=== PATIENT | female | born 1970 | race Caucasian/White ===

== ENCOUNTER 2020-09-15 15:30 | Observation (INO) ==
[2020-09-15] MEDS ORDERED: SODIUM CHLORIDE 0.9% 1000ML 1,000 ML IV STA (15:51)
[2020-09-15] MEDS ORDERED: ONDANSETRON INJ 2 MG/ML 2 ML VIAL IV STA (15:51)
[2020-09-15] MEDS: NITROGLYCERIN SL 0.4 MG/TAB TAB SL PRN ×2 (16:11→16:23)
--- NOTE | 2020-09-15 16:48 | Emergency Department Note ---
History of Present Illness General Chief Complaint: Chest Pain Stated Complaint: CHEST PAIN Time Seen by Provider: 09/15/20 15:40 History of Present Illness Provider Complaint: chest pain Onset (ago): hour(s) 2 Duration: constant Onset: during rest Pain Location: substernal Pain Radiation: none Severity: moderate Maximum Pain Intensity: 6 Current Pain Intensity: 6 Quality: + other (pressure) Relieved By: + nothing Exacerbated By: + nothing Context: + recent surgery (just finished ERCP and biliary stent placement by Dr. Grewal and then began having chest pain in the PACU); no recent illness and no recent travel Associated symptoms: + nausea; no vomiting, no diaphoresis, no dyspnea, no syncope, no palpitations and no fever Home Medications Medication Instructions Recorded Confirmed Type alprazolam [Xanax] 1 mg PO BID PRN 09/13/20 09/15/20 History benzonatate [Tessalon Perles] 100 mg PO BID PRN 09/13/20 09/15/20 History vdusnanluo-fgelhmz-ayjqnsdo 1 cap PO Q4H PRN 09/13/20 09/15/20 History docusate sodium 100 mg PO BID 09/13/20 09/15/20 History escitalopram oxalate [Lexapro] 20 mg PO QAM 09/13/20 09/15/20 History estradiol [Estrace] 3 mg PO QAM 09/13/20 09/15/20 History gabapentin 600 mg PO TID 09/13/20 09/15/20 History levothyroxine 100 mcg PO QAM 09/13/20 09/15/20 History loratadine 10 mg PO HS 09/13/20 09/15/20 History losartan [Cozaar] 50 mg PO QAM 09/13/20 09/15/20 History omeprazole 40 mg PO QAM 09/13/20 09/15/20 History ondansetron HCl [Zofran] 4 mg PO Q8H PRN 09/13/20 09/15/20 History oxycodone-acetaminophen [Percocet] 1 tab PO Q6H PRN 09/13/20 09/15/20 History promethazine 25 mg PO TID PRN 09/13/20 09/15/20 History rizatriptan 10 mg PO TID PRN 09/13/20 09/15/20 History senna 8.6 mg PO QAM 09/13/20 09/15/20 History sucralfate [Carafate] 10 ml PO QID 09/13/20 09/15/20 History topiramate [Topamax] 50 mg PO HS 09/13/20 09/15/20 History trazodone 50 mg PO HS 09/13/20 09/15/20 History ciprofloxacin HCl [Cipro] 500 mg PO BID #10 tab 09/15/20 09/15/20 Rx Allergies Allergy/AdvReac Type Severity Reaction Status Date / Time pineapple Allergy Severe Anaphylaxis Verified 09/15/20 16:14 Past Med/Surg History Medical History (Updated 09/15/20 @ 19:42 by Justina Cole PA-C) Anxiety and depression Arthritis Cholangiocarcinoma Constipation Elevated LFTs GERD (gastroesophageal reflux disease) Hypertension Hypothyroidism Liver enzyme elevation Migraine Peripheral neuropathy Spinal stenosis Stomach ulcer Surgical History (Updated 09/15/20 @ 19:37 by Justina Cole PA-C) Family history of reaction to anesthesia Son > combative Father > slow to wake H/O total hysterectomy History of bilateral tubal ligation History of cholecystectomy History of esophagogastroduodenoscopy (EGD) History of tonsillectomy History of tooth extraction Family History Father Family history of diabetes mellitus Other Family history of factor V deficiency Social History Smoking Status: Never smoker Second Hand Exposure: Yes; Hx Alcohol Use: No Preferred Language: Guyanese Zinc Plate Cutter Required: No Beliefs That Will Affect Care: None Current Living Situation: Family Feels Safe at Home: Yes Assistive Devices: Denture - Upper, Denture - Lower and Glasses Review of Systems A total of 10 systems reviewed and were otherwise negative Physical Exam Vital Signs Vital Signs - 24 hr 09/15/20 15:45 09/15/20 15:49 09/15/20 15:50 Temperature Temperature Source Pulse Rate 62 57 L 60 Pulse Rate [Right Finger] Pulse Rate from SpO2 Sensor 61 57 L 60 Pulse Rhythm Pulse Strength Respiratory Rate 23 14 17 Respiratory Effort / Characteristics Respiratory Depth Respiratory Pattern Blood Pressure 166/108 H Blood Pressure [Right Arm] Blood Pressure Mean 127 Blood Pressure Mean [Right Arm] Pulse Oximetry 97 97 97 Oxygen Delivery Method Sepsis Recent Fever Within 48 Hours Sepsis New/Unexplained Change in Mental Status Sepsis Action Taken by Nursing 09/15/20 15:51 09/15/20 16:00 09/15/20 16:10 Temperature 36.7 C Temperature Source Oral Pulse Rate 73 65 62 Pulse Rate [Right Finger] Pulse Rate from SpO2 Sensor 65 63 Pulse Rhythm Regular Pulse Strength Normal Respiratory Rate 18 18 18 Respiratory Effort / Characteristics Non-Labored Respiratory Depth Normal Respiratory Pattern Regular Blood Pressure 174/103 H Blood Pressure [Right Arm] Blood Pressure Mean 126 Blood Pressure Mean [Right Arm] Pulse Oximetry 95 96 97 Oxygen Delivery Method Room Air Sepsis Recent Fever Within 48 Hours No Sepsis New/Unexplained Change in Mental Status No Sepsis Action Taken by Nursing No Action Required 09/15/20 16:12 09/15/20 16:20 09/15/20 16:22 Temperature Temperature Source Pulse Rate 73 75 77 Pulse Rate [Right Finger] Pulse Rate from SpO2 Sensor 75 78 Pulse Rhythm Pulse Strength Respiratory Rate 17 30 H 11 L Respiratory Effort / Characteristics Respiratory Depth Respiratory Pattern Blood Pressure 174/103 H 139/91 Blood Pressure [Right Arm] Blood Pressure Mean 126 107 Blood Pressure Mean [Right Arm] Pulse Oximetry 92 92 Oxygen Delivery Method Sepsis Recent Fever Within 48 Hours Sepsis New/Unexplained Change in Mental Status Sepsis Action Taken by Nursing 09/15/20 16:23 09/15/20 16:30 09/15/20 16:31 Temperature Temperature Source Pulse Rate 79 77 75 Pulse Rate [Right Finger] Pulse Rate from SpO2 Sensor 78 79 74 Pulse Rhythm Pulse Strength Respiratory Rate 19 14 Respiratory Effort / Characteristics Respiratory Depth Respiratory Pattern Blood Pressure 130/83 Blood Pressure [Right Arm] Blood Pressure Mean 98 Blood Pressure Mean [Right Arm] Pulse Oximetry 93 95 Oxygen Delivery Method Sepsis Recent Fever Within 48 Hours Sepsis New/Unexplained Change in Mental Status Sepsis Action Taken by Nursing 09/15/20 16:40 09/15/20 16:50 09/15/20 17:00 Temperature Temperature Source Pulse Rate 66 61 60 Pulse Rate [Right Finger] Pulse Rate from SpO2 Sensor 66 60 60 Pulse Rhythm Pulse Strength Respiratory Rate 15 11 L 13 Respiratory Effort / Characteristics Respiratory Depth Respiratory Pattern Blood Pressure 162/86 H Blood Pressure [Right Arm] Blood Pressure Mean 111 Blood Pressure Mean [Right Arm] Pulse Oximetry 93 92 90 Oxygen Delivery Method Sepsis Recent Fever Within 48 Hours Sepsis New/Unexplained Change in Mental Status Sepsis Action Taken by Nursing 09/15/20 17:01 09/15/20 17:10 09/15/20 17:20 Temperature Temperature Source Pulse Rate 58 L 56 L 56 L Pulse Rate [Right Finger] Pulse Rate from SpO2 Sensor 58 L 56 L 57 L Pulse Rhythm Pulse Strength Respiratory Rate 9 L 16 20 Respiratory Effort / Characteristics Respiratory Depth Respiratory Pattern Blood Pressure Blood Pressure [Right Arm] Blood Pressure Mean Blood Pressure Mean [Right Arm] Pulse Oximetry 93 95 95 Oxygen Delivery Method Sepsis Recent Fever Within 48 Hours Sepsis New/Unexplained Change in Mental Status Sepsis Action Taken by Nursing 09/15/20 18:02 09/15/20 18:03 09/15/20 18:05 Temperature Temperature Source Pulse Rate Pulse Rate [Right Finger] 56 L Pulse Rate from SpO2 Sensor 51 L 50 L Pulse Rhythm Pulse Strength Respiratory Rate 20 Respiratory Effort / Characteristics Non-Labored Respiratory Depth Normal Respiratory Pattern Blood Pressure 177/93 H Blood Pressure [Right Arm] 177/93 H Blood Pressure Mean 121 Blood Pressure Mean [Right Arm] 121 Pulse Oximetry 96 95 96 Oxygen Delivery Method Room Air Sepsis Recent Fever Within 48 Hours Sepsis New/Unexplained Change in Mental Status Sepsis Action Taken by Nursing 09/15/20 18:10 09/15/20 18:20 09/15/20 18:30 Temperature Temperature Source Pulse Rate Pulse Rate [Right Finger] Pulse Rate from SpO2 Sensor 54 L 57 L 55 L Pulse Rhythm Pulse Strength Respiratory Rate Respiratory Effort / Characteristics Respiratory Depth Respiratory Pattern Blood Pressure 179/100 H Blood Pressure [Right Arm] Blood Pressure Mean 126 Blood Pressure Mean [Right Arm] Pulse Oximetry 93 97 98 Oxygen Delivery Method Sepsis Recent Fever Within 48 Hours Sepsis New/Unexplained Change in Mental Status Sepsis Action Taken by Nursing 09/15/20 18:31 09/15/20 18:40 09/15/20 18:50 Temperature Temperature Source Pulse Rate Pulse Rate [Right Finger] Pulse Rate from SpO2 Sensor 52 L 57 L 48 L Pulse Rhythm Pulse Strength Respiratory Rate Respiratory Effort / Characteristics Respiratory Depth Respiratory Pattern Blood Pressure Blood Pressure [Right Arm] Blood Pressure Mean Blood Pressure Mean [Right Arm] Pulse Oximetry 98 96 98 Oxygen Delivery Method Sepsis Recent Fever Within 48 Hours Sepsis New/Unexplained Change in Mental Status Sepsis Action Taken by Nursing 09/15/20 19:00 09/15/20 19:01 09/15/20 19:10 Temperature Temperature Source Pulse Rate Pulse Rate [Right Finger] Pulse Rate from SpO2 Sensor 60 56 L 57 L Pulse Rhythm Pulse Strength Respiratory Rate Respiratory Effort / Characteristics Respiratory Depth Respiratory Pattern Blood Pressure 178/99 H Blood Pressure [Right Arm] Blood Pressure Mean 125 Blood Pressure Mean [Right Arm] Pulse Oximetry 94 94 98 Oxygen Delivery Method Sepsis Recent Fever Within 48 Hours Sepsis New/Unexplained Change in Mental Status Sepsis Action Taken by Nursing 09/15/20 19:20 09/15/20 19:30 Temperature Temperature Source Pulse Rate 55 L 61 Pulse Rate [Right Finger] Pulse Rate from SpO2 Sensor Pulse Rhythm Pulse Strength Respiratory Rate 13 15 Respiratory Effort / Characteristics Respiratory Depth Respiratory Pattern Blood Pressure 149/104 H Blood Pressure [Right Arm] Blood Pressure Mean 119 Blood Pressure Mean [Right Arm] Pulse Oximetry Oxygen Delivery Method Sepsis Recent Fever Within 48 Hours Sepsis New/Unexplained Change in Mental Status Sepsis Action Taken by Nursing Physical Exam GENERAL: She is oriented to person, place, and time. She appears well-developed and well-nourished. She does not appear distressed. HENT: Exam performed. -Head: Normocephalic and atraumatic. -Right Ear: External ear normal. No mastoid tenderness. -Left Ear: External ear normal. No mastoid tenderness. -Mouth/Throat: The oropharynx is clear and moist. No trismus in the jaw. No dental abscesses or uvula swelling. No oropharyngeal exudate or tonsillar abscesses. EYES: Conjunctivae and EOM are normal. Pupils are equal, round, and reactive to light. Right eye exhibits no discharge. Left eye exhibits no discharge. scleral icterus. NECK: Normal range of motion. Neck supple. No JVD present. No spinous process tenderness present. No carotid bruit present. No rigidity. No tracheal deviation and normal range of motion present. No Brudzinski's sign and no Kernig's sign noted. CV: Normal rate, regular rhythm, normal heart sounds and intact distal pulses. There is no peripheral edema. Palpable radial pulses bue. PULM/CHEST: Effort normal and breath sounds normal. No respiratory distress. No stridor. She has no wheezes. She has no rales. -Chest Wall: She exhibits no tenderness. ABD: The abdomen is soft. Bowel sounds are normal. She has no distension. No mass is present. There is no tenderness. There is no rebound, no guarding, no Guerrero's sign and no tenderness at McBurney's point. Rovsig negative MUSC/SKEL: Normal range of motion. There is no peripheral edema, tenderness or deformity. LYMPH: No cervical adenopathy. NEURO: She is alert and oriented to person, place, and time. She has normal strength. No cranial nerve deficit or sensory deficit. Coordination and gait normal. GCS eye subscore is 4. GCS verbal subscore is 5. GCS motor subscore is 6. Cerebellar tests wnl. SKIN: Severely jaundiced. PSYCH: She has a normal mood and affect. Behavior is normal. Judgment and thought content normal. Course Course 1540: The patient was evaluated in room B8. A complete history and physical exam was performed Cardiac monitoring: An order was placed for continuous cardiac monitoring. The monitor shows a rate of 60 with sinus rhythm 1550: Patient reports her chest pain has improved to a 2 out of 10 status post 1 sublingual nitroglycerin. She is reporting a headache now, will order IV fluids and Tylenol. 1840: Vital signs stable. Troponin negative. Chest x-ray negative. Labs do show an elevated bilirubin level and alkaline phosphatase level as is expected given the patient's biliary problems. Patient is reporting that her chest pain was starting to come back mildly, Nitropaste was applied to the patient which improved her pain. [facility] states to admit to Dr. Rhodes's team. Administered Medications Nitroglycerin (Nitroglycerin Sl 0.4 Mg/Tab Tab) 0.4 mg SL UD PRN PRN Reason: Chest Pain Stop: 10/15/20 15:50 Last Admin: 09/15/20 16:23 Dose: 0.4 mg Documented by: [id number] Admin: 09/15/20 16:11 Dose: 0.4 mg Documented by: [id number] Discontinued Medications Acetaminophen (Acetaminophen 325 Mg Tab) 650 mg PO NOW STA Stop: 09/15/20 19:05 Last Admin: 09/15/20 19:11 Dose: 650 mg Documented by: [id number] Sodium Chloride (Nss 1000ml) 1,000 mls @ 999 mls/hr IV .Q1H1M STA Stop: 09/15/20 16:51 Last Infusion: 09/15/20 18:04 Dose: 0 mls/hr Documented by: [id number] Admin: 09/15/20 16:12 Dose: 999 mls/hr Documented by: [id number] Nitroglycerin (Nitroglycerin 2% Ointment 30gm Tube) 1 inch EXT NOW STA Stop: 09/15/20 18:12 Last Admin: 09/15/20 18:22 Dose: 1 inch Documented by: [id number] Ondansetron HCl (Ondansetron Inj 2 Mg/Ml 2 Ml Vial) 4 mg IV NOW STA Stop: 09/15/20 15:52 Last Admin: 09/15/20 16:11 Dose: 4 mg Documented by: [id number] Medical Decision Making Laboratory Data Result diagrams: 09/15/20 17:16 09/15/20 15:59 Labs: Lab Results 09/15/20 09/15/20 09/15/20 Range/Units 15:59 17:16 17:16 WBC 5.49 (4.8-10.8) K/uL RBC 3.94 L (4.2-5.4) M/uL Hgb 12.7 (12.0-16.0) g/dL Hct 37.3 (37-47) % MCV 94.7 (80-100) fL MCH 32.2 (25-34) pg MCHC 34.0 (32-36) g/dL RDW Std Deviation 52.1 H (36.4-46.3) fL RDW Coeff of Kaden 15.0 H (11.5-14.5) % Plt Count 176 (130-400) K/uL MPV 10.9 H (7.4-10.4) fL Immature Gran % (Auto) 0.4 % Neut % (Auto) 88.5 % Lymph % (Auto) 8.9 % [place] % (Auto) 2.0 % Eos % (Auto) 0.0 % Baso % (Auto) 0.2 % Neut # (Auto) 4.86 (1.4-6.5) K/uL Lymph # (Auto) 0.49 L (1.2-3.4) K/uL [place] # (Auto) 0.11 (0.11-0.59) K/uL Eos # (Auto) 0.00 (0-0.5) K/uL Baso # (Auto) 0.01 (0-0.2) K/uL Immature Gran # (Auto) 0.02 (0.00-0.02) K/uL PT 14.4 H (9.0-12.0) Seconds INR 1.5 H (0.9-1.1) APTT 30.3 (21.0-31.0) Seconds PTT Ratio 1.2 Sodium 138 (136-145) mmol/L Potassium 3.8 (3.5-5.1) mmol/L Chloride 106 (98-107) mmol/L Carbon Dioxide 24 (21-32) mmol/L Anion Gap 8.0 (3-11) BUN 5 L (7-18) mg/dl Creatinine 0.68 (0.6-1.2) mg/dl Est Cr Clr Drug Dosing 116.8 ml/min Est GFR ( Amer) 117.4 ml/min Est GFR (Non-Af Amer) 101.3 ml/min BUN/Creatinine Ratio 7.2 L (10-20) Glucose 159 H (70-99) mg/dl Calcium 9.5 (8.5-10.1) mg/dl Total Bilirubin 11.6 H (0.2-1) mg/dl Direct Bilirubin (0-0.2) mg/dl AST 80 H (15-37) U/L ALT 69 (12-78) U/L Alkaline Phosphatase 452 H (45-117) U/L Troponin I < 0.015 (0-0.045) ng/ml Total Protein 6.6 (6.4-8.2) gm/dl Albumin 2.7 L (3.4-5.0) gm/dl Globulin 3.9 (2.5-4.0) gm/dl Albumin/Globulin Ratio 0.7 L (0.9-2) Lipase 307 (73-393) U/L Specimen Hemolysis Imaging Data Chest x-ray: Radiologist's impression: AP CHEST WITH ABDOMINAL SERIES CLINICAL HISTORY: Atypical chest pain. Status post ERCP today. FINDINGS: An AP upright chest radiograph is obtained. No prior studies are available for comparison at the time of dictation. The cardiomediastinal silhouette is unremarkable. The lungs and pleural spaces are clear. No pneumothorax is seen. The bony thorax is grossly intact. Supine and erect abdominal radiographs are obtained. No prior there is a nonobstructed abdominal bowel gas pattern. Cholecystectomy clips are noted in the right upper quadrant. Common bile duct and pancreatic duct stents are in place. Residual enteric contrast is noted in the left colon. There is moderate colonic fecal retention. No evidence of intraperitoneal free air is seen. The hepatic silhouette appears enlarged. There are no abnormal abdominal calcifications. The lumbosacral spine and bony pelvis appear intact. IMPRESSION: 1. No active disease in the chest. 2. Nonobstructed abdominal bowel gas pattern. 3. Common bile duct and pancreatic duct stents are in place. 4. Moderate colonic fecal retention. ACT 112: Negative or not required by law. Electronically signed by: Yazan Bowen M.D. 09/15/2020 5:56 PM Dictated: 09/15/201753Transcribed: 09/15/201753 ECG Data Indication: chest pain Rate (beats per minute): 57 Rhythm: normal sinus Findings: + 1st degree AV block; no ST depression, no ST elevation and no prolonged QT MDM Narrative 1540: The patient was evaluated in room B8. A complete history and physical exam was performed Cardiac monitoring: An order was placed for continuous cardiac monitoring. The monitor shows a rate of 60 with sinus rhythm 1550: Patient reports her chest pain has improved to a 2 out of 10 status post 1 sublingual nitroglycerin. She is reporting a headache now, will order IV fluids and Tylenol. 1840: Vital signs stable. Troponin negative. Chest x-ray negative. Labs do show an elevated bilirubin level and alkaline phosphatase level as is expected given the patient's biliary problems. Patient is reporting that her chest pain was starting to come back mildly, Nitropaste was applied to the patient which improved her pain. Patient will be admitted to the [facility] hospitalist team Justina NAVARRO states to admit to Dr. Rhodes's team. Impression & Plan Chest pain Discharge Plan Visit Data Chief Complaint: Chest Pain Stated Complaint: CHEST PAIN ED Provider: Jose Roberto Moses Discharge Problem: Chest pain Patient Disposition: Being Evaluated by Hospitalist Forms Stand Alone Forms: [facility] DocbookMD Prescriptions Prescriptions: No Action losartan [Cozaar] 50 mg Tablet 50 mg PO QAM RF: 0 gabapentin 600 mg Tablet 600 mg PO TID RF: 0 alprazolam [Xanax] 1 mg Tablet 1 mg PO BID PRN (Reason: Anxiety) RF: 0 ondansetron HCl [Zofran] 4 mg Tablet 4 mg PO Q8H PRN (Reason: Nausea) RF: 0 rizatriptan 10 mg Tablet 10 mg PO TID PRN (Reason: Migraine Headache) RF: 0 omeprazole 40 mg Capsule,Delayed Release(Dr/Ec) 40 mg PO QAM RF: 0 levothyroxine 100 mcg Tablet 100 mcg PO QAM RF: 0 oxycodone-acetaminophen [Percocet] 5-325 mg Tablet 1 tab PO Q6H PRN (Reason: Pain) RF: 0 estradiol [Estrace] 1 mg Tablet 3 mg PO QAM RF: 0 benzonatate [Tessalon Perles] 100 mg Capsule 100 mg PO BID PRN (Reason: Cough) RF: 0 promethazine 25 mg Tablet 25 mg PO TID PRN (Reason: Nausea) RF: 0 yseiznqkja-kkmiojk-ecigaycf 50-325-40 mg Capsule 1 cap PO Q4H PRN (Reason: Migraine Headache) RF: 0 docusate sodium 100 mg Capsule 100 mg PO BID RF: 0 loratadine 10 mg Tablet 10 mg PO HS RF: 0 escitalopram oxalate [Lexapro] 20 mg Tablet 20 mg PO QAM RF: 0 senna 8.6 mg Capsule 8.6 mg PO QAM RF: 0 trazodone 50 mg Tablet 50 mg PO HS RF: 0 sucralfate [Carafate] 100 mg/mL Suspension 10 ml PO QID RF: 0 topiramate [Topamax] 50 mg Tablet 50 mg PO HS RF: 0 ciprofloxacin HCl [Cipro] 500 mg tablet 500 mg PO BID Qty: 10 RF: 0 Referrals Referrals: Rhianna Desir, [Primary Care Provider] -
[2020-09-15 17:05] LABS: Alanine Aminotransferase 69 U/L (12-78); Albumin Level 2.7 gm/dl (3.4-5.0); Aspartate Aminotransferase 80 U/L (15-37); BUN Creatinine Ratio 7.2 (10-20); Blood Urea Nitrogen 5 mg/dl (7-18); Calcium 9.5 mg/dl (8.5-10.1); Carbon Dioxide 24 mmol/L (21-32); Chloride 106 mmol/L (98-107); Creatinine Clr Calc Pharmacy 116.8 ml/min; Est GFR (African American) 117.4 ml/min; Est GFR (Non-African American) 101.3 ml/min; Glucose 159 mg/dl (70-99); Lipase 307 U/L (73-393); Potassium 3.8 mmol/L (3.5-5.1); Sodium 138 mmol/L (136-145)
[2020-09-15 17:06] LABS: Albumin Globulin Ratio 0.7 (0.9-2); Alkaline Phosphatase 452 U/L (45-117); Bilirubin,Total 11.6 mg/dl (0.2-1); Globulin 3.9 gm/dl (2.5-4.0); Total Protein 6.6 gm/dl (6.4-8.2); Troponin I < 0.015 ng/ml (0-0.045)
[2020-09-15 17:23] LABS: Basophils # (auto) 0.01 K/uL (0-0.2); Basophils % (auto) 0.2 %; Hematocrit (blood only) 37.3 % (37-47); Hemoglobin 12.7 g/dL (12.0-16.0); Immature Granulocytes # (auto) 0.02 K/uL (0.00-0.02); Immature Granulocytes % (auto) 0.4 %; Lymphocytes # (auto) 0.49 K/uL (1.2-3.4); Lymphocytes % (auto) 8.9 %; Mean Corpuscular Hemoglobin 32.2 pg (25-34); Mean Corpuscular Volume 94.7 fL (80-100); Mean Platelet Volume 10.9 fL (7.4-10.4); Monocytes # (auto) 0.11 K/uL (0.11-0.59); Neutrophils # (auto) 4.86 K/uL (1.4-6.5); Neutrophils % (auto) 88.5 %; Platelet Count 176 K/uL (130-400); RDW Standard Deviation 52.1 fL (36.4-46.3); Red Blood Count 3.94 M/uL (4.2-5.4); White Blood Count 5.49 K/uL (4.8-10.8)
[2020-09-15 17:34] LABS: INR 1.5 (0.9-1.1); Partial Thromboplastin Ratio 1.2; Partial Thromboplastin Time 30.3 Seconds (21.0-31.0); Prothrombin Time 14.4 Seconds (9.0-12.0)
--- NOTE | 2020-09-15 17:57 | XRay Report ---
AP CHEST WITH ABDOMINAL SERIES CLINICAL HISTORY: Atypical chest pain. Status post ERCP today. FINDINGS: An AP upright chest radiograph is obtained. No prior studies are available for comparison at the time of dictation. The cardiomediastinal silhouette is unremarkable. The lungs and pleural spaces are cl ear. No pneumothorax is seen. The bony thorax is grossly intact. Supine and erect abdominal radiographs are obtained. No prior there is a nonobstructed abdominal bowel gas pattern. Cholecystectomy clips are noted in the right upper quadrant. Common bile duct and pancreatic duct stents are in place. Residual enteric con trast is noted in the left colon. There is moderate colonic fecal retention. No evidence of intraperi toneal free air is seen. The hepatic silhouette appears enlarged. There are no abnormal abdominal sonu cifications. The lumbosacral spine and bony pelvis appear intact. IMPRESSION: 1. No active disease in the chest. 2. Nonobstructed abdominal bowel gas pattern. 3. Common bile duct and pancreatic duct stents are in place. 4. Moderate colonic fecal retention. ACT 112: Negative or not required by law. Electronically signed by: Yazan Bowen M.D. 09/15/2020 5:56 PM
[2020-09-15] MEDS ORDERED: NITROGLYCERIN 2% OINTMENT 30GM TUBE EXT STA (18:11)
--- NOTE | 2020-09-15 18:30 | History & Physical Report ---
Date of Service September 15, 2020 Assessment & Plan (1) Chest pain: (2) Status post endoscopic retrograde cholangiopancreatography: (3) Jaundice: (4) Cholangiocarcinoma: This is a 50-year-old female who has significant past medical history of HTN, HLD, hypothyroidism, GERD, and presumed cholangiocarcinoma who presents to ED secondary to chest pain x few hours. Patient underwent ERCP today with pancreatic stent placement and one covered metal stent placed into the common bile duct along with a second plastic stent secondary to stricture. Current working diagnosis is likely underlying cholangiocarcinoma with hepatic metastases. Biopsy from today's ERCP is pending. Postoperatively patient developed substernal chest pain and was referred over to the ER for further evaluation. EKG was performed with concern for possible T wave abnormalities. In ED patient remained hypertensive and chest pain continued. During our evaluation chest pain was mostly inferior to sternum and epigastric region. Patient received nitro with minimal relief. Initial troponin is unremarkable and EKG revealed normal sinus rhythm with a T wave inversion in lead III. Patient is being admitted for further chest pain work-up and ACS rule out versus postoperative complication. Admit to telemetry Cycle troponins EKG in a.m. Obtain echocardiogram CT chest and CT abdomen pelvis secondary to patient complaint of abdominal pain as well as cough that has been present since April Continue home medications Avoid ASA and NSAIDs postoperatively for 1 week Clear liquid diet Cipro 500 mg twice daily Consult GI for postop follow-up Repeat lipase in a.m. to rule out postoperative pancreatitis (5) Elevated LFTs: Total bilirubin 11.6, AST 80, ALT 69, alk phos 452 Lipase WNL Repeat CMP and lipase in a.m. (6) Hypertension: Patient hypertensive in ED, currently 149/104 Continue to monitor Continue losartan, if continues to be elevated will add amlodipine (7) Constipation: Continue senna and Colace Add MiraLAX daily Patient states she has a BM every 8 days, currently has been 8 days since last BM As needed Dulcolax (8) Hypothyroidism: Continue levothyroxine (9) Anxiety and depression: Continue Lexapro, trazodone, as needed Xanax (10) DVT prophylaxis: SCD/TEDS for now monitor daily need for chemical prophylaxis Dispo: TELE PCP: Thang FULL CODE Pt was seen and examined in collaboration with Dr. Dangelo, please see addendum History of Present Illness Chief Complaint: Chest pain x few hours. Primary Care Provider: Rhianna Desir DO This is a 50-year-old female who has significant past medical history of HTN, HLD, hypothyroidism, GERD, cholangiocarcinoma who presents to ED secondary to chest pain x few hours. Of significance patient underwent biliary stent today and while she was in PACU she developed 6 out of 10 chest pressure. She was referred to ED for chest pain evaluation. Pain started as soon as soon as she woke up from procedure. It is located substernum/epigastric region with radiation to her back. She has never had pain like this before. She describes it as a heavy pressure. The pressure waxes and wanes in severity. She was given nitro w/o much improvement. She tried liquids and that didn't seem to affect it. She denies any associated diaphoresis. She has dizziness but this has been present since April. 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 She has a BM every 8 days and last was 8 days ago. She is on senna and colace for this. Overall appetite is very poor. She has nausea but this has been present since April for which she takes phenergan and zofran for as needed. She has a chronic cough since the fall and progressively worse since April. Cough is very deep and she can't seem to get any relief. She was suppose to have a PET scan today, but unable to be done today 2/2 to ERCP today. Allergies Allergy/AdvReac Type Severity Reaction Status Date / Time pineapple Allergy Severe Anaphylaxis Verified 09/15/20 16:14 Home Medications Medication Instructions Recorded Confirmed Type alprazolam [Xanax] 1 mg PO BID PRN 09/13/20 09/15/20 History benzonatate [Tessalon Perles] 100 mg PO BID PRN 09/13/20 09/15/20 History ajilvjzuzt-aeymajg-qqyeaurb 1 cap PO Q4H PRN 09/13/20 09/15/20 History docusate sodium 100 mg PO BID 09/13/20 09/15/20 History escitalopram oxalate [Lexapro] 20 mg PO QAM 09/13/20 09/15/20 History estradiol [Estrace] 3 mg PO QAM 09/13/20 09/15/20 History gabapentin 600 mg PO TID 09/13/20 09/15/20 History levothyroxine 100 mcg PO QAM 09/13/20 09/15/20 History loratadine 10 mg PO HS 09/13/20 09/15/20 History losartan [Cozaar] 50 mg PO QAM 09/13/20 09/15/20 History omeprazole 40 mg PO QAM 09/13/20 09/15/20 History ondansetron HCl [Zofran] 4 mg PO Q8H PRN 09/13/20 09/15/20 History oxycodone-acetaminophen [Percocet] 1 tab PO Q6H PRN 09/13/20 09/15/20 History promethazine 25 mg PO TID PRN 09/13/20 09/15/20 History rizatriptan 10 mg PO TID PRN 09/13/20 09/15/20 History senna 8.6 mg PO QAM 09/13/20 09/15/20 History sucralfate [Carafate] 10 ml PO QID 09/13/20 09/15/20 History topiramate [Topamax] 50 mg PO HS 09/13/20 09/15/20 History trazodone 50 mg PO HS 09/13/20 09/15/20 History ciprofloxacin HCl [Cipro] 500 mg PO BID #10 tab 09/15/20 09/15/20 Rx Past Med/Surg History Medical History (Updated 09/15/20 @ 19:42 by Justina Cole PA-C) Anxiety and depression Arthritis Cholangiocarcinoma Constipation Elevated LFTs GERD (gastroesophageal reflux disease) Hypertension Hypothyroidism Liver enzyme elevation Migraine Peripheral neuropathy Spinal stenosis Stomach ulcer Surgical History (Updated 09/15/20 @ 19:37 by Justina Cole PA-C) Family history of reaction to anesthesia Son > combative Father > slow to wake H/O total hysterectomy History of bilateral tubal ligation History of cholecystectomy History of esophagogastroduodenoscopy (EGD) History of tonsillectomy History of tooth extraction Family History Father Family history of diabetes mellitus Other Family history of factor V deficiency Social History Smoking Status: Never smoker Second Hand Exposure: No; Do You Dip or Chew Tobacco: No; Hx Alcohol Use: No Hx Substance Use: No Preferred Language: Macedonian Communication Ability: Effective Aircraft Painter Required: No Beliefs That Will Affect Care: None Current Living Situation: Spouse and Family Current Living Situation Comment: and son Feels Safe at Home: Yes Safety Concerns: Feels Safe At This Time Assistive Devices: Cane Review of Systems Review of Systems: All systems reviewed & are unremarkable except as noted in HPI & below Physical Exam Physical Exam: Please refer to Dr. Dangelo addendum for physical exam findings. Results & Data Results & Data ([facility]) Vital Signs (Past 12 Hours) Vital Signs Temp Pulse Pulse Resp BP BP Pulse Ox 09/15/20 18:05 56 L 20 177/93 H 96 09/15/20 16:22 77 11 L 139/91 92 09/15/20 16:20 75 30 H 92 09/15/20 16:12 73 17 174/103 H 09/15/20 16:10 62 18 97 09/15/20 16:00 65 18 96 09/15/20 15:51 36.7 C 73 18 174/103 H 95 09/15/20 15:50 60 17 97 09/15/20 15:49 57 L 14 97 09/15/20 15:45 62 23 166/108 H 97 Diagnostic Findings Chest/Abdomen X-ray 09/15/20 15:52 AP CHEST WITH ABDOMINAL SERIES CLINICAL HISTORY: Atypical chest pain. Status post ERCP today. FINDINGS: An AP upright chest radiograph is obtained. No prior studies are available for comparison at the time of dictation. The cardiomediastinal silhouette is unremarkable. The lungs and pleural spaces are clear. No pneumothorax is seen. The bony thorax is grossly intact. Supine and erect abdominal radiographs are obtained. No prior there is a nonobstructed abdominal bowel gas pattern. Cholecystectomy clips are noted in the right upper quadrant. Common bile duct and pancreatic duct stents are in place. Residual enteric contrast is noted in the left colon. There is moderate colonic fecal retention. No evidence of intraperitoneal free air is seen. The hepatic silhouette appears enlarged. There are no abnormal abdominal calcifications. The lumbosacral spine and bony pelvis appear intact. IMPRESSION: 1. No active disease in the chest. 2. Nonobstructed abdominal bowel gas pattern. 3. Common bile duct and pancreatic duct stents are in place. 4. Moderate colonic fecal retention. ACT 112: Negative or not required by law. Electronically signed by: Yazan Bowen M.D. 09/15/2020 5:56 PM Medications Administered Medication List Nitroglycerin (Nitroglycerin Sl 0.4 Mg/Tab Tab) 0.4 mg SL UD PRN PRN Reason: Chest Pain Stop: 10/15/20 15:50 Last Admin: 09/15/20 16:23 Dose: 0.4 mg Documented by: [id number] Admin: 09/15/20 16:11 Dose: 0.4 mg Documented by: [id number] Discontinued Medications Sodium Chloride (Nss 1000ml) 1,000 mls @ 999 mls/hr IV .Q1H1M STA Stop: 09/15/20 16:51 Last Infusion: 09/15/20 18:04 Dose: 0 mls/hr Documented by: [id number] Admin: 09/15/20 16:12 Dose: 999 mls/hr Documented by: [id number] Nitroglycerin (Nitroglycerin 2% Ointment 30gm Tube) 1 inch EXT NOW STA Stop: 09/15/20 18:12 Last Admin: 09/15/20 18:22 Dose: 1 inch Documented by: [id number] Ondansetron HCl (Ondansetron Inj 2 Mg/Ml 2 Ml Vial) 4 mg IV NOW STA Stop: 09/15/20 15:52 Last Admin: 09/15/20 16:11 Dose: 4 mg Documented by: [id number] ECG Rate (beats per minute): 63 Rhythm: normal sinus Findings: + T-wave inversion (III) COVID-19 Results Results COVID-19 Adm Lab Results: RBC 3.93 M/uL (4.2-5.4) L 09/16/20 WBC 7.37 K/uL (4.8-10.8) 09/16/20 Hgb 12.6 g/dL (12.0-16.0) 09/16/20 Hct 38.0 % (37-47) 09/16/20 Plt Count 189 K/uL (130-400) 09/16/20 Neutrophils (%) (Auto) 75.2 % 09/16/20 Lymphocytes (%) (Auto) 17.2 % 09/16/20 Monocytes # (Auto) 0.50 K/uL (0.11-0.59) 09/16/20 Eosinophils # (Auto) 0.02 K/uL (0-0.5) 09/16/20 Immature Granulocyte % (Auto) 0.4 % 09/16/20 Neutrophils # (Auto) 5.54 K/uL (1.4-6.5) 09/16/20 Lymphocytes # (Auto) 1.27 K/uL (1.2-3.4) 09/16/20 Monocytes # (Auto) 0.50 K/uL (0.11-0.59) 09/16/20 Eosinophils # (Auto) 0.02 K/uL (0-0.5) 09/16/20 Basophils # (Auto) 0.01 K/uL (0-0.2) 09/16/20 Immature Granulocyte # (Auto) 0.03 K/uL (0.00-0.02) H 09/16/20 Na 141 mmol/L (136-145) 09/16/20 K 3.6 mmol/L (3.5-5.1) 09/16/20 Cl 110 mmol/L (98-107) H 09/16/20 CO2 24 mmol/L (21-32) 09/16/20 Anion Gap 7.0 (3-11) 09/16/20 BUN 6 mg/dl (7-18) L 09/16/20 Creatinine 0.57 mg/dl (0.6-1.2) L 09/16/20 BUN/Creatinine Ratio 9.7 (10-20) L 09/16/20 Glucose Level 95 mg/dl (70-99) 09/16/20 Ca 8.2 mg/dl (8.5-10.1) L 09/16/20 Total Bilirubin 8.3 mg/dl (0.2-1) H 09/16/20 Direct Bilirubin mg/dl (0-0.2) 09/15/20 AST/SGOT 59 U/L (15-37) H 09/16/20 ALT/SGPT 53 U/L (12-78) 09/16/20 Alkaline Phosphatase 369 U/L (45-117) H 09/16/20 Total Protein 5.6 gm/dl (6.4-8.2) L 09/16/20 Albumin 2.2 gm/dl (3.4-5.0) L 09/16/20 Globulin 3.4 gm/dl (2.5-4.0) 09/16/20 Albumin/Globulin Ratio 0.6 (0.9-2) L 09/16/20 Troponin I < 0.015 ng/ml (0-0.045) 09/16/20 PTT 30.3 Seconds (21.0-31.0) 09/15/20 INR 1.4 (0.9-1.1) H 09/16/[address] 09/15/20 Code Status & VTE Plan Code Status Full Code VTE Prophylaxis Plan VTE Prophylaxis will be ordered: Yes Supervising Physician Co-Signing Physician Notes Patient is a 50-year-old female with history of hypertension, hyperlipidemia, cholangiocarcinoma and other medical problems was who underwent biliary stent placement developed epigastric/retrosternal chest pain after the procedure. Patient admits to having neck pain radiating to the back. Nitroglycerin use has not alleviated the pain. She has ongoing chronic cough. Patient also reports constipation. Please review HPI for complete details of presentation. Imaging studies suggestive of mild acute pancreatitis. Also noted very mild periportal lymphadenopathy, metastatic disease. CBD stents are in good place. Trace perihepatic fluid also noted. Physical Exam: Vitals signs as noted above General Appearance:Obese, no apparent distress Head: normocephalic, Atraumatic Eyes: normal inspection, EOMI, +Icteric Neck: supple, Trachea midline Respiratory/Chest: Normal breath sounds, CTA Cardiovascular: S1, S2, No murmur Abdomen/GI:Soft, Epigastric, Left sided tender, Bowel sounds present Extremities/Musculoskelatal:normal inspection, no edema Neurologic/Psych:AAOX3, grossly no focal neurological deficits Skin: normal color, warm, +Jaundice Post ERCP pancreatitis Cholangiocarcinoma Constipation Transaminitis Chest Pain R/O ACS Cardiac enzymes negative EKG showed no signs of acute ischemia CT imaging suggestive of acute pancreatitis Continue IV fluids Clear liquid diet, advance as tolerated Appreciate GI input We will continue ciprofloxacin twice daily for 5 days as recommended Avoid aspirin, NSAIDs for 1 week Pain control Bowel regimen to prevent constipation Monitor LFTs Patient weight, likely situational Monitor I personally reviewed the record. Patient is interviewed and examined at bedside. Patient's care is coordinated with Justina Pataky PA-C. Please refer to the documentation above for details of patient's presentation and for discussion of other issues.
[2020-09-15] MEDS ORDERED: ACETAMINOPHEN 325 MG TAB PO STA (19:04)
[2020-09-15] MEDS ORDERED: BENZONATATE 100 MG CAPSULE PO PRN (20:22)
[2020-09-15] MEDS ORDERED: NITROGLYCERIN SL 0.4 MG/TAB TAB SL PRN (20:22)
[2020-09-15] MEDS ORDERED: ALPRAZolam 0.5 MG TABLET PO PRN (20:22)
[2020-09-15] MEDS ORDERED: ALUMINUM/MAGNESIUM SUSP 30 ML UDC PO PRN (20:22)
[2020-09-15] MEDS ORDERED: POLYETHYLENE (MIRALAX) 17 GM PACK PO PRN (20:22)
[2020-09-15] MEDS ORDERED: RIZATRIPTAN BENZOATE 10 MG TAB PO PRN (20:22)
[2020-09-15] MEDS ORDERED: MAGNESIUM HYDROXIDE SUSP 30 ML UDC PO PRN (20:22)
[2020-09-15] MEDS ORDERED: bisacodyL 5 MG TABEC PO PRN (20:22)
--- NOTE | 2020-09-15 20:30 | CT Scan Report ---
CT chest diagnostic wo con, CT abd pelvis wo con CT DOSE: 1362.13 mGy.cm HISTORY: Atypical chest pain, cough. Status post ERCP and stent placement. Epigastric pain. TECHNIQUE: Multiaxial CT images of the chest, abdomen, and pelvis were performed without contrast. A dose lowering technique was utilized adhering to the principles of ALARA. COMPARISON: None. FINDINGS: Chest CT: The central airways are patent. No pneumothorax. Trace left pleural effusion. A few bibasil ar linear densities consistent with subsegmental atelectasis. Otherwise, no focal lung consolidations to suggest pneumonia. No pulmonary nodules identified. No suspicious lytic or blastic osseous lesion s. No mediastinal or hilar lymphadenopathy. No pericardial effusion. Heart is normal in size. Normal caliber thoracic aorta. Normal esophagus. Abdomen/pelvis CT: No pneumoperitoneum. No pneumatosis. No suspicious lytic or blastic osseous lesion s. The spleen is enlarged measuring 16 cm in length. Small amount of splenic capsular calcification i s noted. The adrenal glands and kidneys are unremarkable. No hydronephrosis. Normal caliber abdominal aorta. The bladder is underdistended therefore not well visualized. There is trace pelvic free fluid . The uterus is surgically absent. Suboptimal evaluation for bowel pathology due to the lack of contr ast. There is a small amount of residual oral contrast within the colon. No definite bowel wall thick ening or obstruction. Normal appendix. Prior cholecystectomy. Trace perihepatic fluid. There are meta llic and plastic common bile duct stents which appear in good position. There is gas within the metal lic common bile duct stent. No pneumobilia identified within the intrahepatic bile ducts. The last 8 common bile duct stent extends into the right intrahepatic bile ducts. There is moderate dilatation o f the left intrahepatic bile ducts. Questionable soft tissue thickening at the hepatic duct confluenc e best seen image 133. The main pancreatic duct stent is in good position. There is a small amount of residual contrast within the cystic duct remnant. Minimal inflammatory change adjacent to the pancre atic head which could be postprocedural or represent a mild acute pancreatitis. Multiple mildly enlar ged periportal lymph nodes are noted. IMPRESSION: 1. No focal lung consolidations to suggest pneumonia. 2. Trace left pleural effusion. 3. Minimal inflammatory change adjacent to the pancreatic head which could be postprocedural or repre sent a mild acute pancreatitis. 4. Mild periportal lymphadenopathy. This is nonspecific and could be reactive. Metastatic disease can not be excluded. 5. Questionable soft tissue thickening at the hepatic duct confluence. This could represent an enlarg ed lymph node. Correlation with ERCP findings to exclude the possibility of a cholangiocarcinoma. 6. The common bile duct stents appear in good position with the plastic common bile duct stent extend ing into the right intrahepatic bile ducts. The right hepatic bile ducts appear decompressed. There i s moderate dilatation of the left intrahepatic bile ducts. 7. Trace perihepatic fluid. 8. Additional findings as described above. ACT 112: Negative or not required by law. Electronically signed by: Carson Garcia M.D. 09/15/2020 8:28 PM
[2020-09-15] MEDS: oxyCODONE HCL IR 5 MG TAB (IMMEDIATE RELEASE) PO PRN (20:53)
[2020-09-15] MEDS: ONDANSETRON INJ 2 MG/ML 2 ML VIAL IV PRN (20:53)
[2020-09-15] MEDS: LACTATED RINGER'S 1,000 ML IV SCH (20:53)
[2020-09-15] MEDS: POLYETHYLENE (MIRALAX) 17 GM PACK PO SCH ×2 (21:00→21:15)
[2020-09-15] MEDS: DOCUSATE SODIUM 100 MG CAP PO SCH (21:13)
[2020-09-15] MEDS: LORATADINE 10 MG TAB PO SCH (21:14)
[2020-09-15] MEDS: SUCRALFATE 1 GM/10 ML UDC PO SCH (21:14)
[2020-09-15] MEDS: GABAPENTIN 600 MG TAB PO SCH (21:14)
[2020-09-15] MEDS: traZODone HCL 50 MG TAB PO SCH (21:15)
[2020-09-15] MEDS: TOPIRAMATE 50 MG TAB PO SCH (21:15)
[2020-09-15] MEDS: CIPROFLOXACIN 500 MG TAB PO SCH (21:16)
[2020-09-16] MEDS: LACTATED RINGER'S 1,000 ML IV SCH ×3 (03:09→16:30)
[2020-09-16] MEDS: oxyCODONE HCL IR 5 MG TAB (IMMEDIATE RELEASE) PO PRN (03:12)
[2020-09-16 06:08] LABS: Basophils # (auto) 0.01 K/uL (0-0.2); Basophils % (auto) 0.1 %; Eosinophils # (auto) 0.02 K/uL (0-0.5); Eosinophils % (auto) 0.3 %; Hemoglobin 12.6 g/dL (12.0-16.0); Immature Granulocytes # (auto) 0.03 K/uL (0.00-0.02); Immature Granulocytes % (auto) 0.4 %; Lymphocytes # (auto) 1.27 K/uL (1.2-3.4); Lymphocytes % (auto) 17.2 %; Mean Corpuscular Hemoglobin 32.1 pg (25-34); Mean Corpuscular Hgb Conc 33.2 g/dL (32-36); Mean Corpuscular Volume 96.7 fL (80-100); Monocytes % (auto) 6.8 %; Neutrophils # (auto) 5.54 K/uL (1.4-6.5); Neutrophils % (auto) 75.2 %; Platelet Count 189 K/uL (130-400); RDW Coefficient of Variation 15.2 % (11.5-14.5); RDW Standard Deviation 53.8 fL (36.4-46.3); Red Blood Count 3.93 M/uL (4.2-5.4); White Blood Count 7.37 K/uL (4.8-10.8)
[2020-09-16] MEDS: LEVOTHYROXINE SODIUM 100 MCG TABLET PO SCH (06:12)
[2020-09-16 06:16] LABS: INR 1.4 (0.9-1.1); Prothrombin Time 13.5 Seconds (9.0-12.0)
[2020-09-16 06:47] LABS: Alanine Aminotransferase 53 U/L (12-78); Albumin Globulin Ratio 0.6 (0.9-2); Albumin Level 2.2 gm/dl (3.4-5.0); Alkaline Phosphatase 369 U/L (45-117); Aspartate Aminotransferase 59 U/L (15-37); BUN Creatinine Ratio 9.7 (10-20); Bilirubin,Total 8.3 mg/dl (0.2-1); Blood Urea Nitrogen 6 mg/dl (7-18); Calcium 8.2 mg/dl (8.5-10.1); Carbon Dioxide 24 mmol/L (21-32); Chloride 110 mmol/L (98-107); Creatinine Clr Calc Pharmacy 133.3 ml/min; Est GFR (African American) 124.4 ml/min; Est GFR (Non-African American) 107.3 ml/min; Globulin 3.4 gm/dl (2.5-4.0); Glucose 95 mg/dl (70-99); Lipase 497 U/L (73-393); Magnesium 2.2 mg/dl (1.8-2.4); Potassium 3.6 mmol/L (3.5-5.1); Sodium 141 mmol/L (136-145); Total Protein 5.6 gm/dl (6.4-8.2); Troponin I < 0.015 ng/ml (0-0.045)
[2020-09-16] MEDS: SUCRALFATE 1 GM/10 ML UDC PO SCH ×4 (07:27→21:56)
--- NOTE | 2020-09-16 07:51 | Electrocardiogram Report ---
Test Reason : Blood Pressure : / mmHG Vent. Rate : 057 BPM Atrial Rate : 057 BPM P-R Int : 220 ms QRS Dur : 086 ms QT Int : 456 ms P-R-T Axes : 025 -20 010 degrees QTc Int : 443 ms Sinus bradycardia with 1st degree A-V block Borderline ECG When compared with ECG of 15-SEP-2020 14:12, No significant change was found Confirmed by Shlomo Richardson ([id number]) on 09/16/2020 7:50:54 AM Referred By: Ghazal Grewal Confirmed By:Shlomo Richardson
[2020-09-16 08:13] LABS: Estimated Average Glucose 100 mg/dl; Hemoglobin A1C 5.1 % (4.5-5.6)
[2020-09-16] MEDS: CIPROFLOXACIN 500 MG TAB PO SCH ×2 (08:24→21:56)
[2020-09-16] MEDS: DOCUSATE SODIUM 100 MG CAP PO SCH ×2 (08:24→21:55)
[2020-09-16] MEDS: ESCITALOPRAM OXALATE 20 MG TAB PO SCH (08:24)
[2020-09-16] MEDS: estradioL 1 MG TAB PO SCH (08:25)
[2020-09-16] MEDS: LOSARTAN POTASSIUM 50 MG TAB PO SCH (08:25)
[2020-09-16] MEDS: PANTOprazole 40 MG TAB PO SCH (08:25)
[2020-09-16] MEDS: POLYETHYLENE (MIRALAX) 17 GM PACK PO SCH (08:25)
[2020-09-16] MEDS: GABAPENTIN 600 MG TAB PO SCH ×3 (08:25→21:55)
[2020-09-16] MEDS: SENNA 8.6 MG TAB PO SCH (08:25)
--- NOTE | 2020-09-16 08:27 | Electrocardiogram Report ---
Test Reason : Blood Pressure : / mmHG Vent. Rate : 055 BPM Atrial Rate : 055 BPM P-R Int : 318 ms QRS Dur : 086 ms QT Int : 460 ms P-R-T Axes : 021 -16 -02 degrees QTc Int : 440 ms Sinus bradycardia with 1st degree A-V block Otherwise normal ECG When compared with ECG of 15-SEP-2020 15:48, No significant change was found Confirmed by Shlomo Richardson ([id number]) on 09/16/2020 8:27:51 AM Referred By: Ghazal Grewal Confirmed By:Shlomo Richardson
--- NOTE | 2020-09-16 09:07 | Gastrointestinal Consultation ---
Date of Consultation September 16, 2020 Assessment & Plan (1) Elevated LFTs: 50 year old male with weight loss, abd pain, jaundice outside imaging with suspicious for cholangiocarcinoma, s/p EGD/EUS/ERCP yesterday w/ Stricture of the common hepatic duct which is suspicious for a neoplasm such as c holangiocarcinoma Antiemetics PRN Analgesia PRN IVF maintenance Clear liquids today Consider diet advancement for dinner and if tolerating, discharge tomorrow She asked us to discuss with her niece Dr. Tesha Gregorio Thank you for allowing us to participate in the care of this patient. Please call with any acute changes, questions or concerns. Please see addendum below with additional recommendation from my supervising physician. Supervising Physician Co-Signing Physician Notes I saw and evaluated the patient. She underwent endoscopic ultrasound and ERCP as an outpatient yesterday for evaluation of suspected cholangiocarcinoma. After the procedure she developed severe chest discomfort described as a pressure-like sensation. She was admitted for overnight observation to ensure she did not have a myocardial infarction. Today the patient notes that her symptoms are improved however she does have some continued discomfort in the region of her chest and sternal area. Physical examination Scleral icterus noted, no peritoneal signs or rebound tenderness noted Impression: Patient with recently diagnosed cholangiocarcinoma status post ERCP with biliary stent placement yesterday. It is quite possible that the patient is sensing opening of the stent, this can take up to 48 hours to open completely. Recommendations Continue ciprofloxacin prophylactic use for total of 5 days Try Levsin twice daily Patient to be seen by medical oncology as an outpatient, she wishes to seek evaluation at [facility] in [place] Advance to full liquid diet today History of Present Illness Reason for Consultation: abd pain Requesting Physician: Antolin Attending Physician: Klever Dangelo MD History of Present Illness 50 year old female with history of HTN, hypothyroidism, dyslipidemia others initially referred for change in stools and jaundice at the request of Dr. Ana Lilia Desir. Notes symptoms started in March. Vague abd discomfort and nausea.. Abd pain is epigastric and RUQ. Burning. Does not radiate. Discomfort is intermittent. Not associated with PO. No appetite.There is associated nausea. No vomiting. Is on Omeprazole daily. No heartburn, regurgitation. Some sore throats. No hoarseness. No dysphagia. Had change in BM around the same time. Used to move her bowels daily in the evening. Now more sporadic BMs constipation. Moves bowels once every 5/10 days. Stools are pale, toy colored. No black or bloody stools. Urine has been very dark since March as well. Lost 40/50 lbs. Unintentional. No fever, chills, CP, SOB. She has had fatigue, exhaustion, She feels hands are shaky. OP CT concerning for large liver mass. Underwent ERCP yesterday for FNA and stent placement. Post procedure she had upper abd pain. Admitted. CT questions mild inflammation of pancreas. Made NPO last night, pain control. Currently feeling better and tolerating clears. CTAP 2020: Suspect obstructing cholangiocarcinoma at the common hepatic duct with metastatic satellite hepatic lesions. Central lesion possibly extends into the caudate lobe. Portacaval and gastrohepatic lymphadenopathy is likely metastatic. Consider tissue sampling and biliary decompression. ERCP 2020: luoroscopy provided during ERCP with placement of a biliary stent. Stricture of the common hepatic duct which is suspicious for a neoplasm such as cholangiocarcinoma.Multifocal irregularity of the intrahepatic bile ducts. EUS 2020: There was no sign of significant pathology in the ampulla. - Evidence of a cholecystectomy. - There was dilation in the common bile duct which measured up to 10 mm. - A 23 mm mass was found in the common hepatic duct. Fine needle aspiration performed. - Multiple metastatic lesions were found in the left lobe of the liver. Fine needle aspiration performed. - There was no sign of significant pathology in the entire pancreas. - Endosonographic images of the left adrenal gland were unremarkable. EGD 2020: - Normal esophagus. - Z-line regular, 37 cm from the incisors. - Gastritis. Biopsied. - Normal examined duodenum. EGD 2008: OSH gastric ulcers Colonoscopy: none Results for ANALI YEUNG ( ) as of 09/08/2020 13:04 Ref. Range 02/21/2018 08:46 06/30/2018 12:03 09/22/2019 12:11 Albumin Latest Ref Range: 3.8 - 5.0 g/dL 4.2 4.1 3.9 AST Latest Ref Range: 10 - 35 U/L 12 15 18 ALT Latest Ref Range: 10 - 35 U/L 13 12 21 Alkaline Phosphatase Latest Ref Range: 0 - 153 U/L 104 96 101 Bilirubin, Total Latest Ref Range: 0 - 1.2 mg/dL <0.2 0.2 <0.2 Family history of GI malignancy: none Family history of liver disease: none Family history of IBD: sister with crohn's or UC Allergies Allergy/AdvReac Type Severity Reaction Status Date / Time pineapple Allergy Severe Anaphylaxis Verified 09/15/20 16:14 Home Medications Medication Instructions Recorded Confirmed Type alprazolam [Xanax] 1 mg PO BID PRN 09/13/20 09/15/20 History benzonatate [Tessalon Perles] 100 mg PO BID PRN 09/13/20 09/15/20 History vhndzzbzcl-faopzzm-mhnsqdki 1 cap PO Q4H PRN 09/13/20 09/15/20 History docusate sodium 100 mg PO BID 09/13/20 09/15/20 History escitalopram oxalate [Lexapro] 20 mg PO QAM 09/13/20 09/15/20 History estradiol [Estrace] 3 mg PO QAM 09/13/20 09/15/20 History gabapentin 600 mg PO TID 09/13/20 09/15/20 History levothyroxine 100 mcg PO QAM 09/13/20 09/15/20 History loratadine 10 mg PO HS 09/13/20 09/15/20 History losartan [Cozaar] 50 mg PO QAM 09/13/20 09/15/20 History omeprazole 40 mg PO QAM 09/13/20 09/15/20 History ondansetron HCl [Zofran] 4 mg PO Q8H PRN 09/13/20 09/15/20 History oxycodone-acetaminophen [Percocet] 1 tab PO Q6H PRN 09/13/20 09/15/20 History promethazine 25 mg PO TID PRN 09/13/20 09/15/20 History rizatriptan 10 mg PO TID PRN 09/13/20 09/15/20 History senna 8.6 mg PO QAM 09/13/20 09/15/20 History sucralfate [Carafate] 10 ml PO QID 09/13/20 09/15/20 History topiramate [Topamax] 50 mg PO HS 09/13/20 09/15/20 History trazodone 50 mg PO HS 09/13/20 09/15/20 History ciprofloxacin HCl [Cipro] 500 mg PO BID #10 tab 09/15/20 09/15/20 Rx Patient History Medical History (Updated 09/15/20 @ 19:42 by Justina Cole PA-C) Anxiety and depression Arthritis Cholangiocarcinoma Constipation Elevated LFTs GERD (gastroesophageal reflux disease) Hypertension Hypothyroidism Liver enzyme elevation Migraine Peripheral neuropathy Spinal stenosis Stomach ulcer Surgical History (Updated 09/15/20 @ 19:37 by Justina Cole PA-C) Family history of reaction to anesthesia Son > combative Father > slow to wake H/O total hysterectomy History of bilateral tubal ligation History of cholecystectomy History of esophagogastroduodenoscopy (EGD) History of tonsillectomy History of tooth extraction Family History Father Family history of diabetes mellitus Other Family history of factor V deficiency Social History Smoking Status: Never smoker Second Hand Exposure: No; Do You Dip or Chew Tobacco: No; Hx Alcohol Use: No Hx Substance Use: No Preferred Language: Kiswahili Communication Ability: Effective Library Circulation Department Chief Required: No Beliefs That Will Affect Care: None Current Living Situation: Spouse and Family Current Living Situation Comment: and son Feels Safe at Home: Yes Safety Concerns: Feels Safe At This Time Assistive Devices: Cane Review of Systems Review of Systems: All systems reviewed & are unremarkable except as noted in HPI & below Physical Exam Constitutional: well developed and well nourished; no acute distress Neck: trachea midline, no thyromegaly Respiratory: normal respiratory effort, lungs clear to auscultation Cardiovascular: RRR, no murmur, no edema Chest (Breasts): normal inspection/palpation of breasts Gastrointestinal (Abdomen): normal bowel sounds, soft, nontender, no hepatosplenomegaly Skin: + jaundice Results & Data ([facility]) Vital Signs (Past 12 Hours) Vital Signs Temp Pulse Pulse Resp BP Pulse Ox 09/16/20 08:05 36.5 C 55 L 15 159/94 H 99 09/16/20 07:52 56 L 09/16/20 04:00 36.5 C 57 L 18 128/85 95 09/15/20 23:50 36.7 C 59 L 18 138/80 94 09/15/20 22:20 61 Laboratory Results 09/16/20 09/16/20 09/16/20 Range/Units 05:41 05:41 05:41 WBC 7.37 (4.8-10.8) K/uL RBC 3.93 L (4.2-5.4) M/uL Hgb 12.6 (12.0-16.0) g/dL Hct 38.0 (37-47) % MCV 96.7 (80-100) fL MCH 32.1 (25-34) pg MCHC 33.2 (32-36) g/dL RDW Std Deviation 53.8 H (36.4-46.3) fL RDW Coeff of Kaden 15.2 H (11.5-14.5) % Plt Count 189 (130-400) K/uL MPV 11.0 H (7.4-10.4) fL Immature Gran % (Auto) 0.4 % Neut % (Auto) 75.2 % Lymph % (Auto) 17.2 % [place] % (Auto) 6.8 % Eos % (Auto) 0.3 % Baso % (Auto) 0.1 % Neut # (Auto) 5.54 (1.4-6.5) K/uL Lymph # (Auto) 1.27 (1.2-3.4) K/uL [place] # (Auto) 0.50 (0.11-0.59) K/uL Eos # (Auto) 0.02 (0-0.5) K/uL Baso # (Auto) 0.01 (0-0.2) K/uL Immature Gran # (Auto) 0.03 H (0.00-0.02) K/uL PT 13.5 H (9.0-12.0) Seconds INR 1.4 H (0.9-1.1) APTT (21.0-31.0) Seconds PTT Ratio Sodium (136-145) mmol/L Potassium (3.5-5.1) mmol/L Chloride (98-107) mmol/L Carbon Dioxide (21-32) mmol/L Anion Gap (3-11) BUN (7-18) mg/dl Creatinine (0.6-1.2) mg/dl Est Cr Clr Drug Dosing ml/min Est GFR ( Amer) ml/min Est GFR (Non-Af Amer) ml/min BUN/Creatinine Ratio (10-20) Glucose (70-99) mg/dl Estimat Average Glucose 100 mg/dl Hemoglobin A1c 5.1 (4.5-5.6) % Calcium (8.5-10.1) mg/dl Magnesium (1.8-2.4) mg/dl Total Bilirubin (0.2-1) mg/dl Direct Bilirubin (0-0.2) mg/dl AST (15-37) U/L ALT (12-78) U/L Alkaline Phosphatase (45-117) U/L Troponin I (0-0.045) ng/ml Total Protein (6.4-8.2) gm/dl Albumin (3.4-5.0) gm/dl Globulin (2.5-4.0) gm/dl Albumin/Globulin Ratio (0.9-2) Lipase (73-393) U/L Specimen Hemolysis 09/16/20 09/15/20 09/15/20 Range/Units 05:41 22:34 17:16 WBC 5.49 (4.8-10.8) K/uL RBC 3.94 L (4.2-5.4) M/uL Hgb 12.7 (12.0-16.0) g/dL Hct 37.3 (37-47) % MCV 94.7 (80-100) fL MCH 32.2 (25-34) pg MCHC 34.0 (32-36) g/dL RDW Std Deviation 52.1 H (36.4-46.3) fL RDW Coeff of Kaden 15.0 H (11.5-14.5) % Plt Count 176 (130-400) K/uL MPV 10.9 H (7.4-10.4) fL Immature Gran % (Auto) 0.4 % Neut % (Auto) 88.5 % Lymph % (Auto) 8.9 % Furn[place] % (Auto) 2.0 % Eos % (Auto) 0.0 % Baso % (Auto) 0.2 % Neut # (Auto) 4.86 (1.4-6.5) K/uL Lymph # (Auto) 0.49 L (1.2-3.4) K/uL Furn[place] # (Auto) 0.11 (0.11-0.59) K/uL Eos # (Auto) 0.00 (0-0.5) K/uL Baso # (Auto) 0.01 (0-0.2) K/uL Immature Gran # (Auto) 0.02 (0.00-0.02) K/uL PT (9.0-12.0) Seconds INR (0.9-1.1) APTT (21.0-31.0) Seconds PTT Ratio Sodium 141 (136-145) mmol/L Potassium 3.6 (3.5-5.1) mmol/L Chloride 110 H (98-107) mmol/L Carbon Dioxide 24 (21-32) mmol/L Anion Gap 7.0 (3-11) BUN 6 L (7-18) mg/dl Creatinine 0.57 L (0.6-1.2) mg/dl Est Cr Clr Drug Dosing 133.3 ml/min Est GFR ( Amer) 124.4 ml/min Est GFR (Non-Af Amer) 107.3 ml/min BUN/Creatinine Ratio 9.7 L (10-20) Glucose 95 (70-99) mg/dl Estimat Average Glucose mg/dl Hemoglobin A1c (4.5-5.6) % Calcium 8.2 L (8.5-10.1) mg/dl Magnesium 2.2 (1.8-2.4) mg/dl Total Bilirubin 8.3 H (0.2-1) mg/dl Direct Bilirubin (0-0.2) mg/dl AST 59 H (15-37) U/L ALT 53 (12-78) U/L Alkaline Phosphatase 369 H (45-117) U/L Troponin I < 0.015 < 0.015 (0-0.045) ng/ml Total Protein 5.6 L (6.4-8.2) gm/dl Albumin 2.2 L (3.4-5.0) gm/dl Globulin 3.4 (2.5-4.0) gm/dl Albumin/Globulin Ratio 0.6 L (0.9-2) Lipase 497 H (73-393) U/L Specimen Hemolysis 09/15/20 09/15/20 Range/Units 17:16 15:59 WBC (4.8-10.8) K/uL RBC (4.2-5.4) M/uL Hgb (12.0-16.0) g/dL Hct (37-47) % MCV (80-100) fL MCH (25-34) pg MCHC (32-36) g/dL RDW Std Deviation (36.4-46.3) fL RDW Coeff of Kaden (11.5-14.5) % Plt Count (130-400) K/uL MPV (7.4-10.4) fL Immature Gran % (Auto) % Neut % (Auto) % Lymph % (Auto) % [place] % (Auto) % Eos % (Auto) % Baso % (Auto) % Neut # (Auto) (1.4-6.5) K/uL Lymph # (Auto) (1.2-3.4) K/uL [place] # (Auto) (0.11-0.59) K/uL Eos # (Auto) (0-0.5) K/uL Baso # (Auto) (0-0.2) K/uL Immature Gran # (Auto) (0.00-0.02) K/uL PT 14.4 H (9.0-12.0) Seconds INR 1.5 H (0.9-1.1) APTT 30.3 (21.0-31.0) Seconds PTT Ratio 1.2 Sodium 138 (136-145) mmol/L Potassium 3.8 (3.5-5.1) mmol/L Chloride 106 (98-107) mmol/L Carbon Dioxide 24 (21-32) mmol/L Anion Gap 8.0 (3-11) BUN 5 L (7-18) mg/dl Creatinine 0.68 (0.6-1.2) mg/dl Est Cr Clr Drug Dosing 116.8 ml/min Est GFR ( Amer) 117.4 ml/min Est GFR (Non-Af Amer) 101.3 ml/min BUN/Creatinine Ratio 7.2 L (10-20) Glucose 159 H (70-99) mg/dl Estimat Average Glucose mg/dl Hemoglobin A1c (4.5-5.6) % Calcium 9.5 (8.5-10.1) mg/dl Magnesium (1.8-2.4) mg/dl Total Bilirubin 11.6 H (0.2-1) mg/dl Direct Bilirubin (0-0.2) mg/dl AST 80 H (15-37) U/L ALT 69 (12-78) U/L Alkaline Phosphatase 452 H (45-117) U/L Troponin I < 0.015 (0-0.045) ng/ml Total Protein 6.6 (6.4-8.2) gm/dl Albumin 2.7 L (3.4-5.0) gm/dl Globulin 3.9 (2.5-4.0) gm/dl Albumin/Globulin Ratio 0.7 L (0.9-2) Lipase 307 (73-393) U/L Specimen Hemolysis
[2020-09-16] MEDS: ONDANSETRON INJ 2 MG/ML 2 ML VIAL IV PRN ×3 (10:06→20:56)
[2020-09-16] MEDS ORDERED: bisacodyL 10 MG SUPP PR PRN (11:27)
[2020-09-16] MEDS: CHLORASEPTIC 1.4% SOLN 180 ML BTL MT PRN ×2 (12:45→20:45)
[2020-09-16] MEDS: DEXTROMETHORPHAN POLYMR COMPLX 30 MG/5 ML UDP PO PRN ×2 (13:10→20:50)
[2020-09-16] MEDS: HYOSCYAMINE SULFATE 0.125 MG TAB SL PRN ×2 (15:44→21:55)
--- NOTE | 2020-09-16 15:45 | Hospitalist Progress Note ---
Date of Service September 16, 2020 Assessment & Plan (1) Chest pain: (2) Status post endoscopic retrograde cholangiopancreatography: (3) Jaundice: (4) Cholangiocarcinoma: Patient is a 50 yr female with H/O HTN, HLD, hypothyroidism, GERD, and presumed cholangiocarcinoma who presents to ED secondary to Epigastric/chest pain x few hours. Acute Pancreatitis -CT ABD:Minimal inflammatory change adjacent to the pancreatic head which could be postprocedural or represent a mild acute pancreatitis. Mild periportal lymphadenopathy. This is nonspecific and could be reactive. Metastatic disease cannot be excluded. Questionable soft tissue thickening at the hepatic duct confluence. This could represent an enlarged lymph node. Correlation with ERCP findings to exclude the possibility of a cholangiocarcinoma. The common bile duct stents appear in good position with the plastic common bile duct stent extending into the right intrahepatic bile ducts. The right hepatic bile ducts appear decompressed. There is moderate dilatation of the left intrahepatic bile ducts. Trace perihepatic fluid. -Clear liquid diet, advance as tolerated -IV fluids -Appreciate GI input -Pain Control Atypical Chest Pain: Likely secondary to above CT chest: No focal lung consolidations to suggest pneumonia. Trace left pleural effusion. Troponin: Negative EKG showed no signs of acute ischemia ECHO with normal wall motion abnormality (5) Elevated LFTs: Suspected cholangiocarcinoma Obstructive jaundice Transaminitis S/P ERCP with biliary stent placement CT abdomen as above Pathology:pending Continue ciprofloxacin prophylactically for 5 days Avoid ASA and NSAIDs postoperatively for 1 week Monitor LFTs Avoid hepatotoxic agents as able Appreciate GI input (6) Hypertension: Patient brought in ED likely situational secondary to pain Continue losartan Monitor (7) Constipation: Constipation Start on bowel regimen Encouraged to ambulate (8) Hypothyroidism: Continue levothyroxine (9) Anxiety and depression: Continue Lexapro, trazodone, as needed Xanax (10) DVT prophylaxis: SCD/TEDS for now CODE STATUS Full code Disposition Expected discharge home when medically stable Admission and Anticipated Discharge Date Admission Date: September 16, 2020 Subjective Patient is seen and examined at bedside States having chronic cough Also reports sore throat after ERCP yesterday Reports constipation Poor oral intake Abdominal pain persists Denies chest pain, dyspnea, dizziness, nausea, vomiting Offers no other complaints Review of Systems Review of Systems: All systems reviewed & are unremarkable except as noted in HPI & below Physical Exam Physical Exam: Physical Exam: Vitals signs as noted above General Appearance:Obese, no apparent distress Head: normocephalic, Atraumatic Eyes: normal inspection, EOMI, +Icteric Neck: supple, Trachea midline Respiratory/Chest: Normal breath sounds, CTA Cardiovascular: S1, S2, No murmur Abdomen/GI:Soft, Mild tender, Bowel sounds present Extremities/Musculoskeletal:normal inspection, no edema Neurologic/Psych:AAOX3, grossly no focal neurological deficits Skin: normal color, warm, +Jaundice Results & Data Results & Data ([facility]) Vital Signs (Past 12 Hours) Vital Signs Temp Pulse Pulse Resp BP Pulse Ox 09/16/20 10:57 36.7 C 71 18 136/85 96 09/16/20 08:05 36.5 C 55 L 15 159/94 H 99 09/16/20 07:52 56 L 09/16/20 04:00 36.5 C 57 L 18 128/85 95 Laboratory Results Short CBC 09/15/20 09/16/20 Range/Units 17:16 05:41 WBC 5.49 7.37 (4.8-10.8) K/uL Hgb 12.7 12.6 (12.0-16.0) g/dL Hct 37.3 38.0 (37-47) % Plt Count 176 189 (130-400) K/uL BMP 09/15/20 09/16/20 15:59 05:41 Sodium 138 141 Potassium 3.8 3.6 Chloride 106 110 H Carbon Dioxide 24 24 BUN 5 L 6 L Creatinine 0.68 0.57 L Glucose 159 H 95 Calcium 9.5 8.2 L Cardiac Enzymes 09/15/20 09/15/20 09/16/20 Range/Units 15:59 22:34 05:41 Troponin I < 0.015 < 0.015 < 0.015 (0-0.045) ng/ml Liver Function 09/15/20 09/16/20 Range/Units 15:59 05:41 Total Bilirubin 11.6 H 8.3 H (0.2-1) mg/dl Direct Bilirubin (0-0.2) mg/dl AST 80 H 59 H (15-37) U/L ALT 69 53 (12-78) U/L Alkaline Phosphatase 452 H 369 H (45-117) U/L Albumin 2.7 L 2.2 L (3.4-5.0) gm/dl Diagnostic Findings Short CBC 09/15/20 09/16/20 Range/Units 17:16 05:41 WBC 5.49 7.37 (4.8-10.8) K/uL Hgb 12.7 12.6 (12.0-16.0) g/dL Hct 37.3 38.0 (37-47) % Plt Count 176 189 (130-400) K/uL BMP 09/15/20 09/16/20 15:59 05:41 Sodium 138 141 Potassium 3.8 3.6 Chloride 106 110 H Carbon Dioxide 24 24 BUN 5 L 6 L Creatinine 0.68 0.57 L Glucose 159 H 95 Calcium 9.5 8.2 L Cardiac Enzymes 09/15/20 09/15/20 09/16/20 Range/Units 15:59 22:34 05:41 Troponin I < 0.015 < 0.015 < 0.015 (0-0.045) ng/ml Liver Function 09/15/20 09/16/20 Range/Units 15:59 05:41 Total Bilirubin 11.6 H 8.3 H (0.2-1) mg/dl Direct Bilirubin (0-0.2) mg/dl AST 80 H 59 H (15-37) U/L ALT 69 53 (12-78) U/L Alkaline Phosphatase 452 H 369 H (45-117) U/L Albumin 2.7 L 2.2 L (3.4-5.0) gm/dl
[2020-09-16] MEDS: TOPIRAMATE 50 MG TAB PO SCH (21:55)
[2020-09-16] MEDS: traZODone HCL 50 MG TAB PO SCH (21:58)
[2020-09-16] MEDS: LORATADINE 10 MG TAB PO SCH (23:07)
[2020-09-17] MEDS ORDERED: LACTATED RINGER'S 1,000 ML IV ONE (01:59)
[2020-09-17] MEDS: LEVOTHYROXINE SODIUM 100 MCG TABLET PO SCH (05:43)
[2020-09-17 05:57] LABS: Hematocrit (blood only) 38.1 % (37-47); Hemoglobin 12.8 g/dL (12.0-16.0); Mean Corpuscular Hemoglobin 32.3 pg (25-34); Mean Corpuscular Hgb Conc 33.6 g/dL (32-36); Mean Corpuscular Volume 96.2 fL (80-100); Mean Platelet Volume 10.4 fL (7.4-10.4); Platelet Count 211 K/uL (130-400); RDW Coefficient of Variation 15.8 % (11.5-14.5); RDW Standard Deviation 55.4 fL (36.4-46.3); Red Blood Count 3.96 M/uL (4.2-5.4); White Blood Count 8.46 K/uL (4.8-10.8)
[2020-09-17 06:32] LABS: INR 1.4 (0.9-1.1); Prothrombin Time 13.8 Seconds (9.0-12.0)
[2020-09-17 06:35] LABS: Albumin Globulin Ratio 0.7 (0.9-2); Albumin Level 2.4 gm/dl (3.4-5.0); BUN Creatinine Ratio 6.5 (10-20); Bilirubin,Total 7.3 mg/dl (0.2-1); Calcium 8.8 mg/dl (8.5-10.1); Creatinine Clr Calc Pharmacy 128.8 ml/min; Est GFR (African American) 122.3 ml/min; Est GFR (Non-African American) 105.5 ml/min; Globulin 3.4 gm/dl (2.5-4.0); Potassium 3.5 mmol/L (3.5-5.1); Total Protein 5.8 gm/dl (6.4-8.2)
[2020-09-17] MEDS: SUCRALFATE 1 GM/10 ML UDC PO SCH ×2 (07:52→11:27)
[2020-09-17] MEDS: SENNA 8.6 MG TAB PO SCH (07:53)
[2020-09-17] MEDS: LOSARTAN POTASSIUM 50 MG TAB PO SCH (07:53)
[2020-09-17] MEDS: GABAPENTIN 600 MG TAB PO SCH (07:53)
[2020-09-17] MEDS: ESCITALOPRAM OXALATE 20 MG TAB PO SCH (07:54)
[2020-09-17] MEDS: DOCUSATE SODIUM 100 MG CAP PO SCH (07:54)
[2020-09-17] MEDS: estradioL 1 MG TAB PO SCH (07:54)
[2020-09-17] MEDS: PANTOprazole 40 MG TAB PO SCH (07:55)
[2020-09-17] MEDS: CIPROFLOXACIN 500 MG TAB PO SCH (07:55)
[2020-09-17] MEDS: ONDANSETRON INJ 2 MG/ML 2 ML VIAL IV PRN (08:03)
[2020-09-17] MEDS: POLYETHYLENE (MIRALAX) 17 GM PACK PO SCH (08:57)
--- NOTE | 2020-09-17 12:21 | XRay Report ---
XR chest 1V portable HISTORY: Left pleuritic chest pain. COMPARISON: Chest CT 09/15/2020. FINDINGS: The lungs are clear. Cardiac silhouette is normal in size. No pleural effusions. No pneumot horax. IMPRESSION: No acute process. ACT 112: Negative or not required by law. Electronically signed by: Carson Garcia M.D. 09/17/2020 12:20 PM
[2020-09-17] MEDS: CHLORASEPTIC 1.4% SOLN 180 ML BTL MT PRN (12:38)
[2020-09-17] MEDS: DEXTROMETHORPHAN POLYMR COMPLX 30 MG/5 ML UDP PO PRN (13:17)
--- NOTE | 2020-09-17 13:19 | Hospitalist Progress Note ---
Date of Service September 17, 2020 Assessment & Plan (1) Chest pain: (2) Status post endoscopic retrograde cholangiopancreatography: (3) Jaundice: (4) Cholangiocarcinoma: Patient is a 50 yr female with H/O HTN, HLD, hypothyroidism, GERD, and presumed cholangiocarcinoma who presents to ED secondary to Epigastric/chest pain x few hours. Acute Pancreatitis -CT ABD:Minimal inflammatory change adjacent to the pancreatic head which could be postprocedural or represent a mild acute pancreatitis. Mild periportal lymphadenopathy. This is nonspecific and could be reactive. Metastatic disease cannot be excluded. Questionable soft tissue thickening at the hepatic duct confluence. This could represent an enlarged lymph node. Correlation with ERCP findings to exclude the possibility of a cholangiocarcinoma. The common bile duct stents appear in good position with the plastic common bile duct stent extending into the right intrahepatic bile ducts. The right hepatic bile ducts appear decompressed. There is moderate dilatation of the left intrahepatic bile ducts. Trace perihepatic fluid. -Received IV fluids -Appreciate GI input -Pain Control -Tolerated regular diet -On Ciprofloxacin as per GI Atypical Chest Pain: Likely secondary to above CT chest: No focal lung consolidations to suggest pneumonia. Trace left pleural effusion. Troponin: Negative EKG showed no signs of acute ischemia ECHO with normal wall motion abnormality (5) Elevated LFTs: Suspected cholangiocarcinoma Obstructive jaundice Transaminitis S/P ERCP with biliary stent placement CT abdomen as above Pathology:pending Continue ciprofloxacin prophylactically for 5 days Avoid ASA and NSAIDs postoperatively for 1 week Monitor LFTs Avoid hepatotoxic agents as able Appreciate GI input LFTs improving (6) Hypertension: Patient brought in ED likely situational secondary to pain Continue losartan Monitor (7) Constipation: Constipation Start on bowel regimen Encouraged to ambulate (8) Hypothyroidism: Continue levothyroxine (9) Anxiety and depression: Continue Lexapro, trazodone, as needed Xanax (10) DVT prophylaxis: SCD/TEDS CODE STATUS Full code Disposition Home Admission and Anticipated Discharge Date Admission Date: September 16, 2020 Subjective Patient is seen and examined at bedside Abdominal pain resolved Had minimal left-sided pleuritic pain Had bowel movement today Tolerated regular diet Denies chest pain, dyspnea, dizziness, nausea, vomiting Offers no other complaints Review of Systems Review of Systems: All systems reviewed & are unremarkable except as noted in HPI & below Physical Exam Physical Exam: Physical Exam: Vitals signs as noted above General Appearance:Obese, no apparent distress Head: normocephalic, Atraumatic Eyes: normal inspection, EOMI, +Icteric Neck: supple, Trachea midline Respiratory/Chest: Normal breath sounds, CTA Cardiovascular: S1, S2, No murmur Abdomen/GI:Soft, Mild tender, Bowel sounds present Extremities/Musculoskeletal:normal inspection, no edema Neurologic/Psych:AAOX3, grossly no focal neurological deficits Skin: normal color, warm, +Jaundice Results & Data Results & Data ([facility]) Vital Signs (Past 12 Hours) Vital Signs Temp Pulse Resp BP BP Pulse Ox 09/17/20 12:00 37 C 72 18 140/82 97 09/17/20 07:19 37 C 78 18 136/84 95 09/17/20 04:12 36.4 C L 80 16 138/82 97 Laboratory Results Short CBC 09/17/20 Range/Units 05:38 WBC 8.46 (4.8-10.8) K/uL Hgb 12.8 (12.0-16.0) g/dL Hct 38.1 (37-47) % Plt Count 211 (130-400) K/uL BMP 09/17/20 05:38 Sodium 142 Potassium 3.5 Chloride 110 H Carbon Dioxide 25 BUN 4 L Creatinine 0.60 Glucose 105 H Calcium 8.8 Liver Function 09/17/20 Range/Units 05:38 Total Bilirubin 7.3 H (0.2-1) mg/dl AST 58 H (15-37) U/L ALT 44 (12-78) U/L Alkaline Phosphatase 363 H (45-117) U/L Albumin 2.4 L (3.4-5.0) gm/dl
--- NOTE | 2020-09-17 13:26 | Discharge Summary ---
Date of Service September 17, 2020 Admission HPI Per Admitting Provider This is a 50-year-old female who has significant past medical history of HTN, HLD, hypothyroidism, GERD, cholangiocarcinoma who presents to ED secondary to chest pain x few hours. Of significance patient underwent biliary stent today and while she was in PACU she developed 6 out of 10 chest pressure. She was referred to ED for chest pain evaluation. Pain started as soon as soon as she woke up from procedure. It is located substernum/epigastric region with radiation to her back. She has never had pain like this before. She describes it as a heavy pressure. The pressure waxes and wanes in severity. She was given n itro w/o much improvement. She tried liquids and that didn't seem to affect it. She denies any associated diaphoresis. She has dizziness but this has been present since April. 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 She has a BM every 8 days and last was 8 days ago. She is on senna and colace for this. Overall appetite is very poor. She has nausea but this has been present since April for which she takes phenergan and zofran for as needed. She has a chronic cough since the fall and progressively worse since April. Cough is very deep and she can't seem to get any relief. She was suppose to have a PET scan today, but unable to be done today 2/2 to ERCP today. Admission Exam Per Admitting Provider Physical Exam: Vitals signs as noted above General Appearance:Obese, no apparent distress Head: normocephalic, Atraumatic Eyes: normal inspection, EOMI, +Icteric Neck: supple, Trachea midline Respiratory/Chest: Normal breath sounds, CTA Cardiovascular: S1, S2, No murmur Abdomen/GI:Soft, Epigastric, Left sided tender, Bowel sounds present Extremities/Musculoskelatal:normal inspection, no edema Neurologic/Psych:AAOX3, grossly no focal neurological deficits Skin: normal color, warm, +Jaundice Principal Diagnosis Acute Pancreatitis Chest Pain Suspected cholangiocarcinoma Constipation Discharge Data Allergies Allergy/AdvReac Type Severity Reaction Status Date / Time pineapple Allergy Severe Anaphylaxis Verified 09/15/20 16:14 Consultations 09/15/20 18:09 ED Decision to Admit Stat 09/15/20 20:22 Consult Gastroenterology Routine Procedures Performed CT ABD:Minimal inflammatory change adjacent to the pancreatic head which could be postprocedural or represent a mild acute pancreatitis. Mild periportal lymphadenopathy. This is nonspecific and could be reactive. Metastatic disease cannot be excluded. Questionable soft tissue thickening at the hepatic duct confluence. This could represent an enlarged lymph node. Correlation with ERCP findings to exclude the possibility of a cholangiocarcinoma. The common bile duct stents appear in good position with the plastic common bile duct stent extending into the right intrahepatic bile ducts. The right hepatic bile ducts appear decompressed. There is moderate dilatation of the left intrahepatic bile ducts. Trace perihepatic fluid. CT chest: No focal lung consolidations to suggest pneumonia. Trace left pleural effusion. Ordered Studies 09/15/20 19:10 CT abd pelvis wo con Stat CT chest diagnostic wo con Stat Hospital Course (1) Chest pain: (2) Status post endoscopic retrograde cholangiopancreatography: (3) Jaundice: (4) Cholangiocarcinoma: Patient is a 50 yr female with H/O HTN, HLD, hypothyroidism, GERD, and presumed cholangiocarcinoma who presents to ED secondary to Epigastric/chest pain x few hours. Acute Pancreatitis -CT ABD:Minimal inflammatory change adjacent to the pancreatic head which could be postprocedural or represent a mild acute pancreatitis. Mild periportal lymphadenopathy. This is nonspecific and could be reactive. Metastatic disease cannot be excluded. Questionable soft tissue thickening at the hepatic duct confluence. This could represent an enlarged lymph node. Correlation with ERCP findings to exclude the possibility of a cholangiocarcinoma. The common bile duct stents appear in good position with the plastic common bile duct stent extending into the right intrahepatic bile ducts. The right hepatic bile ducts appear decompressed. There is moderate dilatation of the left intrahepatic bile ducts. Trace perihepatic fluid. -Received IV fluids -Appreciate GI input -Pain Control -Tolerated regular diet -On Ciprofloxacin as per GI Atypical Chest Pain: Likely secondary to above CT chest: No focal lung consolidations to suggest pneumonia. Trace left pleural effusion. Troponin: Negative EKG showed no signs of acute ischemia ECHO with normal wall motion abnormality (5) Elevated LFTs: Suspected cholangiocarcinoma Obstructive jaundice Transaminitis S/P ERCP with biliary stent placement CT abdomen as above Pathology:pending Continue ciprofloxacin prophylactically for 5 days Avoid ASA and NSAIDs postoperatively for 1 week Monitor LFTs Avoid hepatotoxic agents as able Appreciate GI input LFTs improving (6) Hypertension: Patient brought in ED likely situational secondary to pain Continue losartan Monitor (7) Constipation: Constipation Start on bowel regimen Encouraged to ambulate (8) Hypothyroidism: Continue levothyroxine (9) Anxiety and depression: Continue Lexapro, trazodone, as needed Xanax (10) DVT prophylaxis: SCD/TEDS CODE STATUS Full code Disposition Home Total Time Total Time Spent Total Time Spent (In Minutes): 46 minutes Total Time Includes: Examination of the Patient, Discharge Planning, Medication Reconciliation, Communication With Other Providers and Other Discharge Plan Discharge Items Patient Disposition: Home - Self-Care Reason For Visit: CHEST PAIN Discharge Diagnosis: Acute Pancreatitis Chest Pain Suspected cholangiocarcinoma Constipation Activity: Per Instructions section Exercise/Sports: Gradually increase as tolerated Non-emergency contact: Primary Care Provider, Editor Producer and Oncologist Call non-emergency contact if: you have any medication questions, your symptoms worsen, your pain is not controlled, your pain is concerning for you and you have a fever Follow-up/Referrals: Rhianna Desir, [Primary Care Provider] - Diet: Heart Healthy Addtl Attending Provider Instructions: Follow-up with your primary care physician Dr. Desir in 1 week as advised Follow-up with your director of respiratory therapy Dr. Grewal as recommended Follow-up with your oncologist as scheduled Complete the antibiotic course ciprofloxacin (Previously Prescribed), as recommended by your director of respiratory therapy Pathology results are pending at the time of discharge. Follow-up with your physician for results. Seek immediate medical attention if your symptoms reoccur or worsen Please take all medications as instructed on discharge list below. Please call if you have any questions or problems. You can reach a [facility] hospitalist on duty at [facility] 24 hours a day by calling [phone] Pending Studies at Discharge: Yes Studies:: Pathology Stand-Alone Forms: My [facility], Smoking Cessation Medications and DC Order Prescriptions: New polyethylene glycol 3350 [Miralax] 17 gram Powder In Packet 17 g PO DAILY PRN (Reason: constipation) Qty: 30 RF: 0 dextromethorphan polistirex [Delsym 12 hour] 30 mg/5 mL Suspension,Extended Rel 12 Hr 5 ml PO Q6H PRN (Reason: cough) Qty: 89 RF: 0 Continued losartan [Cozaar] 50 mg Tablet 50 mg PO QAM RF: 0 gabapentin 600 mg Tablet 600 mg PO TID RF: 0 alprazolam [Xanax] 1 mg Tablet 1 mg PO BID PRN (Reason: Anxiety) RF: 0 ondansetron HCl [Zofran] 4 mg Tablet 4 mg PO Q8H PRN (Reason: Nausea) RF: 0 rizatriptan 10 mg Tablet 10 mg PO TID PRN (Reason: Migraine Headache) RF: 0 omeprazole 40 mg Capsule,Delayed Release(Dr/Ec) 40 mg PO QAM RF: 0 levothyroxine 100 mcg Tablet 100 mcg PO QAM RF: 0 oxycodone-acetaminophen [Percocet] 5-325 mg Tablet 1 tab PO Q6H PRN (Reason: Pain) RF: 0 estradiol [Estrace] 1 mg Tablet 3 mg PO QAM RF: 0 benzonatate [Tessalon Perles] 100 mg Capsule 100 mg PO BID PRN (Reason: Cough) RF: 0 promethazine 25 mg Tablet 25 mg PO TID PRN (Reason: Nausea) RF: 0 tliroqtjph-ezdbjrl-ovqmyzzm 50-325-40 mg Capsule 1 cap PO Q4H PRN (Reason: Migraine Headache) RF: 0 docusate sodium 100 mg Capsule 100 mg PO BID RF: 0 loratadine 10 mg Tablet 10 mg PO HS RF: 0 escitalopram oxalate [Lexapro] 20 mg Tablet 20 mg PO QAM RF: 0 senna 8.6 mg Capsule 8.6 mg PO QAM RF: 0 trazodone 50 mg Tablet 50 mg PO HS RF: 0 sucralfate [Carafate] 100 mg/mL Suspension 10 ml PO QID RF: 0 topiramate [Topamax] 50 mg Tablet 50 mg PO HS RF: 0 ciprofloxacin HCl [Cipro] 500 mg tablet 500 mg PO BID Qty: 10 RF: 0 Discharge Orders: Discharge Order (Routine); Ordered 09/17/20 Ordered By: Klever Dangelo Admission Data Admit Date/Time: 09/16/20 13:46 Attending Provider: Klever Dangelo Admit Provider: Klever Dangelo Primary Care Provider: Rhianna Desir Other Providers: Klever Dangelo ; Dorothy Bertrand Other Interventions: Discharge Summary Assessment (RN) Last Done: 09/17/20 15:09
== END 2020-09-17 15:10 | disposition home or self-care (01) ==
LOC: ED 15:30 → 2N 15:30

== ENCOUNTER 2020-12-01 00:31 | Inpatient (IN) ==
[2020-12-01] MEDS ORDERED: SODIUM CHLORIDE 0.9% 1000ML 1,000 ML IV STA (01:01)
[2020-12-01 01:18] LABS: Hematocrit (blood only) 38.1 % (37-47); Hemoglobin 12.9 g/dL (12.0-16.0); Mean Corpuscular Hemoglobin 32.4 pg (25-34); Mean Corpuscular Hgb Conc 33.9 g/dL (32-36); Mean Corpuscular Volume 95.7 fL (80-100); Mean Platelet Volume 9.6 fL (7.4-10.4); Platelet Count 515 K/uL (130-400); RDW Coefficient of Variation 14.7 % (11.5-14.5); RDW Standard Deviation 51.4 fL (36.4-46.3); Red Blood Count 3.98 M/uL (4.2-5.4)
[2020-12-01] MEDS ORDERED: PIPERACILL/TAZOBAC CONSULT ACTIVE PRN (01:32)
[2020-12-01] MEDS ORDERED: PIPERACILLIN/TAZOBACTAM 4.5 GM in DEXTROSE 5% 100 ML IV ONE (01:32)
[2020-12-01] MEDS ORDERED: VANCOMYCIN CONSULT ACTIVE PRN (01:32)
[2020-12-01] MEDS ORDERED: VANCOMYCIN HCL 1,750 MG in SODIUM CHLORIDE 0.9% 500 ML IV ONE (01:32)
[2020-12-01 01:33] LABS: INR 1.7 (0.9-1.1); Prothrombin Time 16.2 Seconds (9.0-12.0)
[2020-12-01 01:39] LABS: Alanine Aminotransferase 14 U/L (12-78); Albumin Level 1.6 gm/dl (3.4-5.0); Blood Urea Nitrogen 26 mg/dl (7-18); Carbon Dioxide 26 mmol/L (21-32); Chloride 90 mmol/L (98-107); Creatinine Clr Calc Pharmacy 40.8 ml/min; Est GFR (African American) 35.4 ml/min; Est GFR (Non-African American) 30.6 ml/min; Glucose 103 mg/dl (70-99); Lipase 55 U/L (73-393); Potassium 2.7 mmol/L (3.5-5.1); Sodium 127 mmol/L (136-145)
[2020-12-01 01:40] LABS: Basophils # (auto) 0.02 K/uL (0-0.2); Basophils % (auto) 0.1 %; Eosinophils # (auto) 0.02 K/uL (0-0.5); Eosinophils % (auto) 0.1 %; Immature Granulocytes # (auto) 0.14 K/uL (0.00-0.02); Immature Granulocytes % (auto) 0.8 %; Lymphocytes # (auto) 1.17 K/uL (1.2-3.4); Lymphocytes % (auto) 6.7 %; Monocytes # (auto) 0.86 K/uL (0.11-0.59); Monocytes % (auto) 4.9 %; Neutrophils # (auto) 15.29 K/uL (1.4-6.5); Neutrophils % (auto) 87.4 %; RBC Morphology Unremarkable
[2020-12-01 01:45] LABS: Albumin Globulin Ratio 0.3 (0.9-2); Alkaline Phosphatase 297 U/L (45-117); Aspartate Aminotransferase 89 U/L (15-37); Bilirubin,Total 3.1 mg/dl (0.2-1); Globulin 5.3 gm/dl (2.5-4.0); Total Protein 6.9 gm/dl (6.4-8.2); Troponin I < 0.015 ng/ml (0-0.045)
[2020-12-01] MEDS ORDERED: SODIUM CHLORIDE 0.9% 1000ML 1,000 ML IV ONE (01:49)
[2020-12-01] MEDS ORDERED: SODIUM CHLORIDE 0.9% 1000ML 1,000 ML IV SCH (02:00)
[2020-12-01] MEDS: POTASSIUM CHLORIDE / WTR 10 MEQ/100 ML PLCT IV SCH ×10 (02:20→17:21)
[2020-12-01 02:21] LABS: Magnesium 2.5 mg/dl (1.8-2.4)
[2020-12-01] MEDS ORDERED: POTASSIUM CHLORIDE 20 MEQ/15 ML UDC PO STA (03:28)
--- NOTE | 2020-12-01 04:05 | Emergency Department Note ---
History of Present Illness General Chief complaint: Lethargic Stated complaint: CANCER PATIENT,LETHARGIC,HOLDING FLUID Time Seen by Provider: 12/01/20 01:00 Source: patient and EMS Mode of arrival: ambulatory Limitations: no limitations History of Present Illness Provider complaint: Altered mental status, cancer patient, abdominal pain Maximum Pain Intensity: 8 This patient is a 50-year-old female who presents to the emergency department with her family who states she is in need of a paracentesis. Patient suffers from cholangiocarcinoma and has had fluid accumulating in her abdomen. Her son states she needs a paracentesis. Patient has been confused and "hallucinating" but denies any fevers or new medications. She has not currently been taking any chemotherapy. She has been taking Flagyl secondary to her recent C. difficile infection. Patient has had very little p.o. intake and has only been doing sips of clear fluids. There has been no vomiting or blood in the stools. Patient is followed by [facility] oncology. Home Medications Medication Instructions Recorded Confirmed Type alprazolam 1 mg tablet (Xanax) 1 mg PO BID PRN 09/13/20 12/01/20 History benzonatate 100 mg capsule 100 mg PO BID PRN 09/13/20 12/01/20 History (Lupe Lyman) wtxoqiofzl-hcwevfu-ohbxradm 50 1 cap PO Q4H PRN 09/13/20 12/01/20 History mg-325 mg-40 mg capsule docusate sodium 100 mg capsule 100 mg PO BID 09/13/20 12/01/20 History escitalopram oxalate 20 mg tablet 20 mg PO QAM 09/13/20 12/01/20 History (Lexapro) estradiol 1 mg tablet (Estrace) 1 mg PO TID 09/13/20 12/01/20 History gabapentin 600 mg tablet 600 mg PO TID 09/13/20 12/01/20 History levothyroxine 100 mcg tablet 100 mcg PO QAM 09/13/20 12/01/20 History loratadine 10 mg tablet 10 mg PO HS 09/13/20 12/01/20 History losartan 50 mg tablet (Cozaar) 50 mg PO QAM 09/13/20 12/01/20 History omeprazole 40 mg capsule,delayed 40 mg PO QAM 09/13/20 12/01/20 History release ondansetron HCl 4 mg tablet 4 mg PO Q8H PRN 09/13/20 12/01/20 History (Zofran) promethazine 25 mg tablet 25 mg PO HS PRN 09/13/20 12/01/20 History rizatriptan 10 mg tablet 10 mg PO TID PRN 09/13/20 12/01/20 History sennosides 8.6 mg capsule (senna) 8.6 mg PO QAM 09/13/20 12/01/20 History sucralfate 100 mg/mL oral 10 ml PO QID 09/13/20 12/01/20 History suspension (Carafate) topiramate 50 mg tablet (Topamax) 50 mg PO HS 09/13/20 12/01/20 History trazodone 50 mg tablet 50 mg PO HS 09/13/20 12/01/20 History oxycodone 5 mg tablet 5 mg PO Q4H PRN 11/14/20 12/01/20 History albumin, human 25 % 25 % See Rx Instructions .ROUTE .COMPLEX 12/01/20 12/01/20 History intravenous solution polyethylene glycol 3350 17 gram 17 g PO DAILY 12/01/20 12/01/20 History oral powder packet (Miralax) vancomycin 125 mg capsule 125 mg PO QID 12/01/20 12/01/20 History Allergies Allergy/AdvReac Type Severity Reaction Status Date / Time pineapple Allergy Severe Anaphylaxis Verified 12/01/20 01:53 Past Med/Surg History Medical History Anxiety and depression Arthritis Cholangiocarcinoma 09/14/2020, s/p 2 chemo treatments Constipation Elevated LFTs GERD (gastroesophageal reflux disease) History of abdominal paracentesis 2L removed ([place]), plan for upcoming repeat paracentesis mid 11/2020 Hypertension Hypothyroidism Migraine Peripheral neuropathy Spinal stenosis Stomach ulcer hx Surgical History Family history of reaction to anesthesia Son > combative Father > slow to wake H/O total hysterectomy History of bilateral tubal ligation History of cholecystectomy History of ERCP EGD, EUS, ERCP (09/15/20): Grade view 1, MAC#3, ETT 7 at [facility] History of esophagogastroduodenoscopy (EGD) History of tonsillectomy History of tooth extraction Family History Father Family history of diabetes mellitus Other Family history of factor V deficiency Social History Smoking Status: Never smoker Second Hand Exposure: No; Hx Alcohol Use: No Hx Substance Use: No Preferred Language: Danish Communication Ability: Effective Coater Helper Required: No Beliefs That Will Affect Care: None Current Living Situation: Spouse and Family Current Living Situation Comment: and son Feels Safe at Home: Yes Safety Concerns: Feels Safe At This Time Assistive Devices: Oxygen - Continuous Review of Systems See HPI for pertinent positives & negatives. and A total of 10 systems reviewed and were otherwise negative Physical Exam Vital Signs Vital Signs - 24 hr 12/01/20 00:43 12/01/20 01:01 12/01/20 01:04 Temperature 36.6 C 36.7 C Temperature Source Temporal Artery Scan Oral Pulse Rate 106 H 95 H Pulse Rate [Apical] 92 H Pulse Rate from SpO2 Sensor 96 H Respiratory Rate 20 20 29 H Blood Pressure 71/43 L 73/45 L Blood Pressure [Left Arm] 90/60 L Blood Pressure Mean 52 54 Blood Pressure Mean [Left Arm] 70 Pulse Oximetry 93 91 90 Oxygen Delivery Method Room Air Room Air Nasal Cannula Oxygen Flow Rate 4 Sepsis New/Unexplained Change in Mental Status N/A Sepsis Action Taken by Nursing No Action Required Oxygen Flow Rate - Titration Pulse Oximetry Post Tiitration 12/01/20 01:10 12/01/20 01:20 12/01/20 01:21 Temperature Temperature Source Pulse Rate 90 88 Pulse Rate [Apical] Pulse Rate from SpO2 Sensor 91 H 88 Respiratory Rate 22 22 Blood Pressure 82/46 L 76/51 L Blood Pressure [Left Arm] Blood Pressure Mean 58 59 Blood Pressure Mean [Left Arm] Pulse Oximetry 94 96 92 Oxygen Delivery Method Nasal Cannula Nasal Cannula Room Air Nasal Cannula Oxygen Flow Rate 4 4 0 Sepsis New/Unexplained Change in Mental Status Sepsis Action Taken by Nursing Oxygen Flow Rate - Titration 4 Pulse Oximetry Post Tiitration 99 12/01/20 01:30 12/01/20 01:40 12/01/20 01:50 Temperature Temperature Source Pulse Rate 89 89 89 Pulse Rate [Apical] Pulse Rate from SpO2 Sensor 90 89 89 Respiratory Rate 20 18 23 Blood Pressure 71/54 L 86/55 L 90/61 L Blood Pressure [Left Arm] Blood Pressure Mean 59 65 70 Blood Pressure Mean [Left Arm] Pulse Oximetry 95 95 94 Oxygen Delivery Method Room Air Room Air Room Air Oxygen Flow Rate Sepsis New/Unexplained Change in Mental Status Sepsis Action Taken by Nursing Oxygen Flow Rate - Titration Pulse Oximetry Post Tiitration 12/01/20 02:20 12/01/20 02:30 12/01/20 02:40 Temperature Temperature Source Pulse Rate 90 90 89 Pulse Rate [Apical] Pulse Rate from SpO2 Sensor 90 91 H 90 Respiratory Rate 24 24 24 Blood Pressure 80/53 L 88/54 L 84/56 L Blood Pressure [Left Arm] Blood Pressure Mean 62 65 65 Blood Pressure Mean [Left Arm] Pulse Oximetry 94 94 93 Oxygen Delivery Method Room Air Oxygen Flow Rate Sepsis New/Unexplained Change in Mental Status Sepsis Action Taken by Nursing Oxygen Flow Rate - Titration Pulse Oximetry Post Tiitration 12/01/20 02:50 12/01/20 03:00 12/01/20 03:10 Temperature Temperature Source Pulse Rate 89 91 H 89 Pulse Rate [Apical] Pulse Rate from SpO2 Sensor 90 91 H 89 Respiratory Rate 23 24 25 H Blood Pressure 88/53 L 90/52 L 91/51 L Blood Pressure [Left Arm] Blood Pressure Mean 64 64 64 Blood Pressure Mean [Left Arm] Pulse Oximetry 92 95 94 Oxygen Delivery Method Room Air Oxygen Flow Rate Sepsis New/Unexplained Change in Mental Status Sepsis Action Taken by Nursing Oxygen Flow Rate - Titration Pulse Oximetry Post Tiitration 12/01/20 03:20 Temperature Temperature Source Pulse Rate 90 Pulse Rate [Apical] Pulse Rate from SpO2 Sensor 89 Respiratory Rate 26 H Blood Pressure 93/52 L Blood Pressure [Left Arm] Blood Pressure Mean 65 Blood Pressure Mean [Left Arm] Pulse Oximetry 94 Oxygen Delivery Method Oxygen Flow Rate Sepsis New/Unexplained Change in Mental Status Sepsis Action Taken by Nursing Oxygen Flow Rate - Titration Pulse Oximetry Post Tiitration Vital signs reviewed. Noted to be hypotensive General: Chronically ill-appearing 50 yo female, in no significant distress. HEENT: Mild scleral icterus, PERRLA, neck supple. Dry mucous membranes. Cardiovascular: Regular rate and rhythm, no extra sounds. Pulmonary: Clear to auscultation bilaterally, normal work of breathing. Abdomen: Soft, moderately distended, + diffusely tender, positive bowel sounds. Musculoskeletal: Atraumatic, no peripheral edema. Neurologic: Patient awake alert and oriented x 3. Skin: Warm, dry, no rash Course Administered Medications Escitalopram Oxalate (Escitalopram Oxalate 20 Mg Tab) 20 mg PO QAM [facility] Stop: 12/31/20 08:59 Last Admin: 12/01/20 09:25 Dose: 20 mg Documented by: [id number] Estradiol (Estradiol 1 Mg Tab) 1 mg PO TID WINNIE Stop: 12/31/20 08:59 Last Admin: 12/01/20 15:40 Dose: Not Given Documented by: [id number] Admin: 12/01/20 09:25 Dose: 1 mg Documented by: [id number] Gabapentin (Gabapentin 600 Mg Tab) 600 mg PO TID [facility] Stop: 12/31/20 08:59 Last Admin: 12/01/20 15:40 Dose: Not Given Documented by: [id number] Admin: 12/01/20 09:25 Dose: 600 mg Documented by: [id number] Sodium Chloride (Nss 1000ml) 1,000 mls @ 100 mls/hr IV .Q10H [facility] Stop: 12/31/20 04:36 Last Admin: 12/01/20 16:18 Dose: 100 mls/hr Documented by: [id number] Infusion: 12/01/20 16:18 Dose: 100 mls/hr Documented by: [id number] Admin: 12/01/20 07:27 Dose: 100 mls/hr Documented by: [id number] Piperacillin Sod/Tazobactam (Sod 3.375 gm/ Dextrose) 115 mls @ 28.75 mls/hr IV Q8H [facility]; Protocol Stop: 12/03/20 07:59 Last Admin: 12/01/20 16:45 Dose: 28.8 mls/hr Documented by: [id number] Infusion: 12/01/20 15:48 Dose: 0 mls/hr Documented by: [id number] Admin: 12/01/20 09:24 Dose: 28.8 mls/hr Documented by: [id number] Levothyroxine Sodium (Levothyroxine Sodium 100 Mcg Tablet) 100 mcg PO DAILYBB [facility] Stop: 12/31/20 06:29 Last Admin: 12/01/20 07:26 Dose: 100 mcg Documented by: [id number] Pantoprazole Sodium (Pantoprazole 40 Mg Tab) 40 mg PO QAM [facility] Stop: 12/31/20 08:59 Last Admin: 12/01/20 09:25 Dose: 40 mg Documented by: [id number] Raspberry (Raspberry Syrup 5 Ml Udp) 5 ml PO Q6 [facility] Stop: 12/15/20 05:59 Last Admin: 12/01/20 15:35 Dose: Not Given Documented by: [id number] Admin: 12/01/20 07:27 Dose: 5 ml Documented by: [id number] Sucralfate (Sucralfate 1 Gm/10 Ml Udc) 1 gm PO QID [facility] Stop: 12/31/20 08:59 Last Admin: 12/01/20 15:39 Dose: Not Given Documented by: [id number] Admin: 12/01/20 09:25 Dose: 1 gm Documented by: [id number] Vancomycin HCl (Vancomycin Hcl 250 Mg/5 Ml Soln) 250 mg PO Q6 [facility] Stop: 12/11/20 05:59 Last Admin: 12/01/20 15:36 Dose: Not Given Documented by: [id number] Admin: 12/01/20 07:27 Dose: 250 mg Documented by: [id number] Discontinued Medications Sodium Chloride (Nss 1000ml) 1,000 mls @ 999 mls/hr IV .Q1H1M STA Stop: 12/01/20 02:01 Last Infusion: 12/01/20 01:51 Dose: 0 mls/hr Documented by: [id number] Admin: 12/01/20 01:13 Dose: 999 mls/hr Documented by: [id number] Piperacillin Sod/Tazobactam (Sod 4.5 gm/ Dextrose) 120 mls @ 200 mls/hr IV NOW ONE; Protocol Stop: 12/01/20 02:07 Last Infusion: 12/01/20 02:51 Dose: 0 mls/hr Documented by: [id number] Admin: 12/01/20 02:13 Dose: 200 mls/hr Documented by: [id number] Vancomycin HCl 1,750 mg/ (Sodium Chloride) 535 mls @ 200 mls/hr IV NOW ONE Stop: 12/01/20 04:12 Last Infusion: 12/01/20 07:33 Dose: 0 mls/hr Documented by: [id number] Admin: 12/01/20 02:51 Dose: 200 mls/hr Documented by: [id number] Sodium Chloride (Nss 1000ml) 1,000 mls @ 999 mls/hr IV .Q1H1M ONE Stop: 12/01/20 02:49 Last Infusion: 12/01/20 02:51 Dose: 0 mls/hr Documented by: [id number] Admin: 12/01/20 01:55 Dose: 999 mls/hr Documented by: [id number] Potassium Chloride (K Bhaskar / Wtr) 10 meq in 100 mls @ 100 mls/hr IV Q1H WINNIE Stop: 12/01/20 03:59 Last Infusion: 12/01/20 04:43 Dose: 0 mls/hr Documented by: [id number] Admin: 12/01/20 03:22 Dose: 100 mls/hr Documented by: [id number] Infusion: 12/01/20 03:19 Dose: 0 mls/hr Documented by: [id number] Admin: 12/01/20 02:20 Dose: 100 mls/hr Documented by: [id number] Sodium Chloride (Nss 1000ml) 1,000 mls @ 200 mls/hr IV .Q5H WINNIE Stop: 12/31/20 01:59 Last Infusion: 12/01/20 07:33 Dose: 0 mls/hr Documented by: [id number] Admin: 12/01/20 02:18 Dose: 200 mls/hr Documented by: [id number] Potassium Chloride (K Bhaskar / Wtr) 10 meq in 100 mls @ 100 mls/hr IV Q1H STA Stop: 12/01/20 04:27 Last Admin: 12/01/20 11:06 Dose: Not Given Documented by: [id number] Potassium Chloride (K Bhaskar / Wtr) 10 meq in 100 mls @ 100 mls/hr IV Q1H WINNIE Stop: 12/01/20 10:59 Last Infusion: 12/01/20 12:30 Dose: 0 mls/hr Documented by: [id number] Admin: 12/01/20 11:06 Dose: 100 mls/hr Documented by: [id number] Infusion: 12/01/20 11:06 Dose: 100 mls/hr Documented by: [id number] Admin: 12/01/20 10:25 Dose: 100 mls/hr Documented by: [id number] Infusion: 12/01/20 10:24 Dose: 100 mls/hr Documented by: [id number] Admin: 12/01/20 09:24 Dose: 100 mls/hr Documented by: [id number] Infusion: 12/01/20 08:24 Dose: 100 mls/hr Documented by: [id number] Admin: 12/01/20 07:24 Dose: 100 mls/hr Documented by: [id number] Potassium Chloride (K Bhaskar / Wtr) 10 meq in 100 mls @ 100 mls/hr IV Q1H WINNIE Stop: 12/01/20 16:14 Last Admin: 12/01/20 17:21 Dose: 100 mls/hr Documented by: [id number] Infusion: 12/01/20 17:17 Dose: 100 mls/hr Documented by: [id number] Admin: 12/01/20 16:17 Dose: 100 mls/hr Documented by: [id number] Infusion: 12/01/20 16:17 Dose: 100 mls/hr Documented by: [id number] Admin: 12/01/20 15:22 Dose: 100 mls/hr Documented by: [id number] Infusion: 12/01/20 13:35 Dose: 100 mls/hr Documented by: [id number] Admin: 12/01/20 12:35 Dose: 100 mls/hr Documented by: [id number] Indomethacin (Indomethacin 50 Mg Supp) 100 mg LA ONCE ONE Stop: 12/01/20 13:13 Last Admin: 12/01/20 13:13 Dose: 100 mg Documented by: [id number] Potassium Chloride (Potassium Chloride 20 Meq/15 Ml Udc) 40 meq PO NOW STA Stop: 12/01/20 03:29 Last Admin: 12/01/20 07:48 Dose: 40 meq Documented by: [id number] Potassium Chloride (Potassium Chloride Crtab 20 Meq Tabcr) 40 meq PO 1215 ONE Stop: 12/01/20 12:16 Last Admin: 12/01/20 15:41 Dose: Not Given Documented by: [id number] Critical Care Time Critical Care Time: Yes Total Critical Care Time: 40 I have personally spent 40 minutes of critical care time in the direct management of this patient. This was a life/limb threatening event. This 40 minutes is in excess of all separately billable procedures. Medical Decision Making Differential Diagnosis Infection, dehydration, metabolic abnormality, hypo/hyperglycemia, electrolyte disturbance, anemia, hypoxia, cardiac sources, intracerebral event, toxicologic, neurologic, as well as other pathologies. Medical Records Attestation: I reviewed the patient's medical records. Home Medications Current Medication List: was personally reviewed by nm Laboratory Data Attestation: I reviewed the patient's lab results. Result diagrams: 12/01/20 01:05 12/01/20 10:41 Lab Results 12/01/20 12/01/20 12/01/20 Range/Units 01:05 01:05 01:05 WBC 17.50 H (4.8-10.8) K/uL RBC 3.98 L (4.2-5.4) M/uL Hgb 12.9 (12.0-16.0) g/dL Hct 38.1 (37-47) % MCV 95.7 (80-100) fL MCH 32.4 (25-34) pg MCHC 33.9 (32-36) g/dL RDW Std Deviation 51.4 H (36.4-46.3) fL RDW Coeff of Kaden 14.7 H (11.5-14.5) % Plt Count 515 H (130-400) K/uL MPV 9.6 (7.4-10.4) fL Immature Gran % (Auto) 0.8 % Neut % (Auto) 87.4 % Lymph % (Auto) 6.7 % [place] % (Auto) 4.9 % Eos % (Auto) 0.1 % Baso % (Auto) 0.1 % Neut # (Auto) 15.29 H (1.4-6.5) K/uL Lymph # (Auto) 1.17 L (1.2-3.4) K/uL [place] # (Auto) 0.86 H (0.11-0.59) K/uL Eos # (Auto) 0.02 (0-0.5) K/uL Baso # (Auto) 0.02 (0-0.2) K/uL Immature Gran # (Auto) 0.14 H (0.00-0.02) K/uL RBC Morphology Unremarkable PT 16.2 H (9.0-12.0) Seconds INR 1.7 H (0.9-1.1) Sodium 127 L (136-145) mmol/L Potassium 2.7 L (3.5-5.1) mmol/L Chloride 90 L (98-107) mmol/L Carbon Dioxide 26 (21-32) mmol/L Anion Gap 11.0 (3-11) BUN 26 H (7-18) mg/dl Creatinine 1.87 H (0.6-1.2) mg/dl Est Cr Clr Drug Dosing 40.8 ml/min Est GFR ( Amer) 35.4 ml/min Est GFR (Non-Af Amer) 30.6 ml/min BUN/Creatinine Ratio 14.0 (10-20) Glucose 103 H (70-99) mg/dl Lactate (0.4-2.0) mmol/L Calcium 8.0 L (8.5-10.1) mg/dl Magnesium 2.5 H (1.8-2.4) mg/dl Total Bilirubin 3.1 H (0.2-1) mg/dl AST 89 H (15-37) U/L ALT 14 (12-78) U/L Alkaline Phosphatase 297 H (45-117) U/L Ammonia Troponin I < 0.015 (0-0.045) ng/ml Total Protein 6.9 (6.4-8.2) gm/dl Albumin 1.6 L (3.4-5.0) gm/dl Globulin 5.3 H (2.5-4.0) gm/dl Albumin/Globulin Ratio 0.3 L (0.9-2) Lipase 55 L (73-393) U/L COVID-19 Eval Order SARS-CoV-2 (PCR) (Negative) 12/01/20 12/01/20 12/01/20 Range/Units 01:05 01:05 01:11 WBC (4.8-10.8) K/uL RBC (4.2-5.4) M/uL Hgb (12.0-16.0) g/dL Hct (37-47) % MCV (80-100) fL MCH (25-34) pg MCHC (32-36) g/dL RDW Std Deviation (36.4-46.3) fL RDW Coeff of Kaden (11.5-14.5) % Plt Count (130-400) K/uL MPV (7.4-10.4) fL Immature Gran % (Auto) % Neut % (Auto) % Lymph % (Auto) % [place] % (Auto) % Eos % (Auto) % Baso % (Auto) % Neut # (Auto) (1.4-6.5) K/uL Lymph # (Auto) (1.2-3.4) K/uL [place] # (Auto) (0.11-0.59) K/uL Eos # (Auto) (0-0.5) K/uL Baso # (Auto) (0-0.2) K/uL Immature Gran # (Auto) (0.00-0.02) K/uL RBC Morphology PT (9.0-12.0) Seconds INR (0.9-1.1) Sodium (136-145) mmol/L Potassium (3.5-5.1) mmol/L Chloride (98-107) mmol/L Carbon Dioxide (21-32) mmol/L Anion Gap (3-11) BUN (7-18) mg/dl Creatinine (0.6-1.2) mg/dl Est Cr Clr Drug Dosing ml/min Est GFR ( Amer) ml/min Est GFR (Non-Af Amer) ml/min BUN/Creatinine Ratio (10-20) Glucose (70-99) mg/dl Lactate 2.4 H* (0.4-2.0) mmol/L Calcium (8.5-10.1) mg/dl Magnesium (1.8-2.4) mg/dl Total Bilirubin (0.2-1) mg/dl AST (15-37) U/L ALT (12-78) U/L Alkaline Phosphatase (45-117) U/L Ammonia Cancelled Troponin I (0-0.045) ng/ml Total Protein (6.4-8.2) gm/dl Albumin (3.4-5.0) gm/dl Globulin (2.5-4.0) gm/dl Albumin/Globulin Ratio (0.9-2) Lipase (73-393) U/L COVID-19 Eval Order Covid19 at [facility] SARS-CoV-2 (PCR) (Negative) 12/01/20 12/01/20 12/01/20 Range/Units 01:11 02:43 02:47 WBC (4.8-10.8) K/uL RBC (4.2-5.4) M/uL Hgb (12.0-16.0) g/dL Hct (37-47) % MCV (80-100) fL MCH (25-34) pg MCHC (32-36) g/dL RDW Std Deviation (36.4-46.3) fL RDW Coeff of Kaden (11.5-14.5) % Plt Count (130-400) K/uL MPV (7.4-10.4) fL Immature Gran % (Auto) % Neut % (Auto) % Lymph % (Auto) % [place] % (Auto) % Eos % (Auto) % Baso % (Auto) % Neut # (Auto) (1.4-6.5) K/uL Lymph # (Auto) (1.2-3.4) K/uL [place] # (Auto) (0.11-0.59) K/uL Eos # (Auto) (0-0.5) K/uL Baso # (Auto) (0-0.2) K/uL Immature Gran # (Auto) (0.00-0.02) K/uL RBC Morphology PT (9.0-12.0) Seconds INR (0.9-1.1) Sodium (136-145) mmol/L Potassium (3.5-5.1) mmol/L Chloride (98-107) mmol/L Carbon Dioxide (21-32) mmol/L Anion Gap (3-11) BUN (7-18) mg/dl Creatinine (0.6-1.2) mg/dl Est Cr Clr Drug Dosing ml/min Est GFR ( Amer) ml/min Est GFR (Non-Af Amer) ml/min BUN/Creatinine Ratio (10-20) Glucose (70-99) mg/dl Lactate 1.4 (0.4-2.0) mmol/L Calcium (8.5-10.1) mg/dl Magnesium (1.8-2.4) mg/dl Total Bilirubin (0.2-1) mg/dl AST (15-37) U/L ALT (12-78) U/L Alkaline Phosphatase (45-117) U/L Ammonia < 10.0 L Troponin I (0-0.045) ng/ml Total Protein (6.4-8.2) gm/dl Albumin (3.4-5.0) gm/dl Globulin (2.5-4.0) gm/dl Albumin/Globulin Ratio (0.9-2) Lipase (73-393) U/L COVID-19 Eval Order SARS-CoV-2 (PCR) NEGATIVE (Negative) Imaging Data Radiologist's Impression: Endo Retro Cholangiopancreatogram 12/01/20 00:00 [place] ERCP biliary ductal CLINICAL HISTORY: ERCP with stent exchange. COMPARISON STUDY: Abdomen and pelvis CT 12/01/2020. FLUOROSCOPY TIME: 47 seconds. FINDINGS: 12 fluoroscopic spot images of the right upper quadrant demonstrate an endoscope at the second portion of the duodenum. A metallic common bile duct stent is noted. The plastic common bile duct stent is removed. Prior cholecystectomy. This is followed by placement of contrast within the common bile duct and placement of 2 additional plastic common bile duct stents through the indwelling metallic common bile duct stent. IMPRESSION: Fluoroscopy provided for ERCP as described above. ACT 112: Negative or not required by law. Electronically signed by: Carson Garcia M.D. 12/01/2020 2:04 PM Chest X-Ray 12/01/20 01:01 XR chest 1V portable CLINICAL HISTORY: Hypotension COMPARISON STUDY: September 17, 2020 FINDINGS: No pneumothorax. No pleural effusion. Lung volumes are decreased with crowded lung markings. Small atelectasis/infiltrate is seen within left retrocardiac region. Cardiomediastinal silhouette is within normal limits in size. No significant pulmonary vascular congestion.. Osseous structures: unremarkable IMPRESSION: 1. Low lung volumes. Possible atelectasis or infiltrate at the left lower lung. ACT 112: Negative or not required by law. The above report was generated using voice recognition software. It may contain grammatical, syntax or spelling errors. Electronically signed by: Cristina Parsons DO 12/01/2020 9:[address] 12/01/20 01:[address] DOSE: HISTORY: Altered mental status. TECHNIQUE: Multiaxial CT images of the head were performed without the use of intravenous contrast. Automated exposure control was utilized for this study. A dose lowering technique was utilized adhering to the principles of ALARA. Comparison: None. Findings: The paranasal sinuses and mastoid air cells are clear. The calvarium and skull base are intact. The ventricles and sulci are within normal limits. There is no mass, hematoma, midline shift, or acute infarct. Impression: No acute intracranial abnormality. ACT 112: Negative or not required by law. Electronically signed by: Carson Garcia M.D. 12/01/2020 8:10 AM Abdomen/Pelvis CT 12/01/20 01:32 CT SCAN OF THE ABDOMEN AND PELVIS WITHOUT IV CONTRAST CLINICAL HISTORY: Hypotension. Cholangiocarcinoma. COMPARISON STUDY: Abdominal CT dated 09/15/2020. TECHNIQUE: CT scan of the abdomen and pelvis is performed from the lung bases to the proximal femora. Images are reviewed in the axial, sagittal, and coronal planes. IV contrast was not administered for this examination. Note that the examination was performed in significantly suboptimal fashion without oral and IV contrast. There is also motion artifact, and streak artifact from the arms which could not be elevated above the abdomen. A dose lowering technique was utilized adhering to the principles of ALARA. CT DOSE: 2007.80 mGy.cm FINDINGS: Lung bases: The heart is mildly enlarged noting trace pericardial effusion. There is diminished attenuation of the cardiac blood pool as compared to the myocardium suggesting anemia. There are trace pleural effusions with dependent atelectasis. No airspace consolidation is seen typical for pneumonia. There is a small hiatal hernia. Liver: The unenhanced liver is enlarged, measuring 24.8 cm in length. Hepatic attenuation is diffusely decreased and heterogeneous. There is a large region of well marginated diminished attenuation throughout the right hepatic lobe. There is no intrahepatic biliary ductal dilatation. Associated pneumobilia are noted. Gallbladder: Surgically absent. Common bile duct stents are in place. Spleen: The spleen is enlarged measuring 18 cm in length. Calcifications along the splenic capsular similar to previous. Pancreas: The unenhanced pancreas is moderately atrophic and grossly unremarkable. Adrenal glands: Unremarkable. Kidneys: The unenhanced kidneys are normal in size and without hydronephrosis. There are no renal calculi identified. There is no evidence of contour deforming renal mass lesion. Abdominal vasculature: The abdominal aorta is normal in course and caliber. Bowel: There is no bowel obstruction. Submucosal fat deposition is seen throughout the colon. This is a nonspecific finding and has been described in the setting of chronic inflammation. The appendix is normal as visualized. Peritoneum: There is a moderate to large volume of abdominopelvic ascites. Omental caking is noted. No intraperitoneal free air is identified. Lymphadenopathy: There are numerous enlarged upper abdominal lymph nodes. There are also mildly enlarged retroperitoneal nodes. A left periaortic node on image #192 measures 11 mm in short axis. Pelvic viscera: A tiny focus of gas is noted within the bladder lumen. The b ladder is decompressed and otherwise grossly unremarkable. The uterus is surgically absent. No adnexal lesion is seen. Skeletal structures: The skeletal structures are osteopenic. There is mild lumbosacral spondylosis. No lytic or blastic lesions are seen. Soft tissues: There is mild body wall edema. IMPRESSION: 1. Significantly suboptimal examination without oral and IV contrast. There is also streak and motion artifact. 2. There is a moderate to large volume of abdominopelvic ascites with evidence of peritoneal carcinomatosis. This is new from 09/15/2020. 3. The liver is enlarged and markedly heterogeneous. There is a large geographic region of diminished attenuation throughout the right lobe which likely represents steatosis. Underlying neoplasm would be impossible to exclude. 4. Upper abdominal and retroperitoneal lymphadenopathy likely represents metastatic disease. 5. Splenomegaly. 6. Mild cardiac enlargement and trace pleural effusions. 7. Common bile duct stents are in place. Pneumobilia suggests patency of the stents. 8. Additional findings as above. ACT 112: Negative or not required by law. Electronically signed by: Yazan Bowen M.D. 12/01/2020 8:03 AM ECG Data Attestation: I personally reviewed and interpreted this ECG as follows: Rate (beats per minute): 89 Rhythm: + normal sinus ECG Intervals/blocks: + Prolonged QT (511) ECG Evans: + Normal ECG ST segments: + Normal ST segments and + repolarization abnormalities (anterior leads) ECG Findings: no PACs or no PVCs Blood Pressure Blood Pressure Findings: Low blood pressure Blood Pressure Disposition: further management by hospitalist CAROLYN Leslie This patient is a 50-year-old female who appeared to be critically ill. 2 large-bore IVs were established peripherally and 2 L of normal saline solution were initiated. Blood cultures were obtained as well as a lactate. Patient was started on IV Zosyn and vancomycin. Laboratory work indicates hypokalemia, hyponatremia and normal ammonia level. Bilirubin and INR are elevated. CT imaging of the abdomen and pelvis was performed and read as above. Progression of the cancer is implied. Patient had some acute kidney injury secondary to profound dehydration and possible sepsis. Noncontrast scan was performed for this reason. I suspect the patient is suffering secondary to poor p.o. intake. Hypotension did improve with aggressive hydration. IV potassium started. Patient was discussed with the hospitalist service who will evaluate the patient for admission and further management. Patient and family were aware of the plan and agreed. Impression & Plan Sepsis, Cholangiocarcinoma, Acute hypotension, Acute dehydration Discharge Plan Visit Data Chief Complaint: Lethargic Stated Complaint: CANCER PATIENT,LETHARGIC,HOLDING FLUID ED Provider: Polly Horowitz Discharge Problem: Sepsis, Cholangiocarcinoma, Acute hypotension, Acute dehydration Patient Disposition: Admitted As Inpatient Discharge Instructions Interventions: ED Discharge Assessment Last Done: 12/01/20 03:56
[2020-12-01] MEDS ORDERED: BENZONATATE 100 MG CAPSULE PO PRN (04:37)
[2020-12-01] MEDS ORDERED: BUTALBITAL/ASPIRIN/CAFFEINE 1 TAB TAB PO PRN (04:37)
[2020-12-01] MEDS ORDERED: NITROGLYCERIN SL 0.4 MG/TAB TAB SL PRN (04:37)
[2020-12-01] MEDS ORDERED: RIZATRIPTAN BENZOATE 10 MG TAB PO PRN (04:37)
[2020-12-01] MEDS ORDERED: ALPRAZolam 0.5 MG TABLET PO PRN (04:37)
[2020-12-01] MEDS: POTASSIUM CHLORIDE / WTR 10 MEQ/100 ML PLCT IV STA ×2 (04:42→11:06)
[2020-12-01] MEDS ORDERED: ONDANSETRON 4 MG OD TAB PO PRN (04:48)
--- NOTE | 2020-12-01 06:16 | History and Physical Report ---
DATE OF ADMISSION: 12/01/2020. CHIEF COMPLAINT: Lethargy. 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 The patient was diagnosed with cholangiocarcinoma in September of this year and status post chemo two times.. Chemo is currently on hold because of ongoing infection. History of chemotherapy-induced neutropenia. Lives at her home with and son. Recently started on p.o. vancomycin for C. diff infection. Was brought in by her son because she was getting confused at home today and somewhat lethargic. Not eating much, poor appetite. Complaining of pain all over her torso that is going on for some time. The patient is able to tell her name, tell her date of . Knows that she is in the hospital, but could not tell exactly today's date, though she knows this is November. Has some headache. Denies any blurred visions, no runny nose, no sore throat, no cough, no fevers. Having diarrhea 3 or 4 episodes every day. Normal bladder movements. Has some swelling in the legs, no rash. When she came in, her blood pressure was running in 70s, with the fluids the blood pressure is improving. She is saturating okay in the room air. White count is 17,000. INR is 1.7. Sodium 127, potassium 2.7, creatinine 1.8, her creatinine was 0.5 last couple of weeks ago, total bilirubin is 3.1. Ammonia is less than 10. SARS-CoV-2 PCR is negative. ALLERGIES: PINEAPPLE. PAST MEDICAL HISTORY: As mentioned above. PAST SURGICAL HISTORY: History of total hysterectomy, history of bilateral tubal ligation, history of cholecystectomy, history of EGD, history of tonsillectomy, history of tooth extraction. MEDICATIONS: The patient is currently on albumin infusion prior and after the paracentesis, alprazolam 1 mg p.o. b.i.d. p.r.n., Tessalon Perles 100 mg p.o. b.i.d. p.r.n., Wellbutrin, aspirin, caffeine 1 capsule p.o. q. 4 hours p.r.n., Colace 100 mg p.o. b.i.d., Lexapro 20 mg p.m., Estradiol 1 mg p.o. t.i.d., gabapentin 600 mg p.o. t.i.d., levothyroxine 100 mcg p.o. a.m., loratadine 10 mg p.o. at bedtime, Cozaar 50 mg p.o. a.m., omeprazole 40 mg p.o. a.m., Zofran 4 mg p.o. q. 8 hours p.r.n., oxycodone 5 mg p.o. q. 4 hours p.r.n., MiraLax 17 g p.o. daily, promethazine 25 mg p.o. at bedtime p.r.n., rizatriptan 10 mg p.o. t.i.d. p.r.n., Senna 8.6 mg p.o. a.m., Carafate 10 mL p.o. q.i.d., Topamax 50 mg p.o. at bedtime, trazodone 50 mg p.o. at bedtime, vancomycin 125 mg p.o. q.i.d. FAMILY HISTORY: No family history on file. SOCIAL HISTORY: , lives with her and son. No smoking, no alcohol, no drug use. REVIEW OF SYSTEMS: As per HPI. Could not get a complete review of systems as the patient is somewhat slow to answer and lethargic. PHYSICAL EXAMINATION: VITAL SIGNS: Temperature 36.6, pulse 92, respiratory rate 26, blood pressure currently is 111/43, when she came in it was 71/54, oxygen 94% on room air. HEENT: Pupils equal, round and reactive to light. Icterus present. Oral mucosa dry. NECK: No JVD. No neck masses. CARDIOVASCULAR: S1 and S2 heard. Regular rate and rhythm. Tachycardia with no murmurs. RESPIRATORY SYSTEM: Normal AP diameter. No accessory muscle use. No wheezing, no crackles. ABDOMEN: Distended. Diffuse abdominal discomfort present. Mild guarding, no rigidity. CENTRAL NERVOUS SYSTEM: Alert and oriented to name, place. Could tell her date of . No facial droop. Speech is somewhat on the low volume and obeys commands and moves extremities. EXTREMITIES: Mild pedal edema present, no erythema seen. LABORATORY DATA: WBC 17.5, hemoglobin 12.9, hematocrit 38.1, platelets 515. PT 16.2, INR 1.7. Sodium 127, potassium 2.7, chloride 90, bicarbonate 26, BUN 26, creatinine 1.8, serum glucose 113. Lactate when she came in was 2.4, currently repeat is 1.4, calcium 8, magnesium 2.5, total bilirubin 3.1, AST 89, ALT 14, alkaline phosphatase 297. Ammonia less than 10. Troponin I less than 0.015. Lipase 55. SARS-CoV-2 PCR negative. IMAGING DATA: Chest x-ray, poor inspiratory effort. No acute findings seen. CT of the head, preliminary report, no acute intracranial hemorrhage, edema or mass, mild cerebellar tonsillar ectopia. No extraaxial fluid collection. No calvarial fracture. CT of the abdomen and pelvis without contrast, mild bibasilar atelectasis, mild cardiomegaly with mild pericardial effusion, increasing moderate to large ascites, diffuse peritoneal carcinomatosis. Hepatomegaly with hepatic steatosis, metallic and plastic biliary stents as before. Mild intrahepatic biliary dilatation. Persistent periportal lymphadenopathy which revealed metastatic splenomegaly, peripheral splenic calcifications as before. Solid organs are otherwise unremarkable. Cholecystectomy as before. No bowel obstruction, no evidence of acute appendicitis. Diffuse thickening of the colon suggestive of nonspecific colitis. Hysterectomy. No abscess or free air. No acute osseous abnormality. EKG: Normal sinus rhythm at the rate of 89, prolonged QTc at 511. ASSESSMENT AND PLAN: This is a 50-year-old female who presents with lethargy and sepsis. 1. Lethargy and sepsis: Lactic acid 2.4 when she came in, currently 1.4 now. She was hypotensive. With a fluid bolus, the patient's blood pressure improved. Will hold her home losartan. Continue normal saline 100 mL per hour. The patient has history of urinary tract infection. Also currently on antibiotics for C. diff. Will increase the p.o. vancomycin to 250 p.o. q. 6 hours. ER started empirically on vancomycin and Zosyn, which will be continued. Follow the blood culture and urine cultures. Closely monitor in the med tele. 2. Ascites: The patient had paracentesis done in first week of November, the cultures were negative. May need repeat paracentesis when the patient's blood pressure stabilizes. GI consulted. 3.cholangiocarcinoma diagnosed in September. Follows with heme/onc. Currently chemo on hold because of the ongoing infection. 4. Clostridium difficile as above: Await GI input. 5. Hypokalemia: Will replace. 6. Hyponatremia: Sodium of 127, getting fluids. Will order repeat BMP around 11:00 a.m., If still worsening, consult nephrology. 7. Acute kidney injury: Baseline creatinine around 0.6, presently with creatinine of 1.8, possibly from the sepsis. Getting fluids. Follow the repeat labs. 8. Elevated bilirubin and jaundice, better than before, but most likely from cholangiocarcinoma. Follow the repeat labs. History of status post ERCP and biliary stent placement. On CAT scan of the abdomen and pelvis, stent is seen. Await GI input. 9.. History of hypertension: Currently hypotensive. Holding losartan. Will restart Losartan when blood pressure improves. 10. Hypothyroidism: Continue Synthroid. 11. Anxiety and depression: Continue Lexapro, trazodone, and as needed Xanax. 12. Prolonged Qt. Avoid qt prolonging drugs. replace potassium. follow repeat ekg. 13. Deep venous thrombosis prophylaxis: Sequential compression devices for now. DISPOSITION: Closely monitor in the [employer] tele. Level 1 full code as per my discussion with the patient. PT, OT prior to discharge. Social service to help with discharge planning. Job ID: [id number] MTDD
[2020-12-01 07:10] LABS: Appearance Urine Turbid (Clear); Bacteria Urine Automated Negative (Negative); Blood Urine Negative (Negative); Color Urine Orange; Epithelial Cell Urine Auto >30 /lpf (0-5); Glucose Urine UA Negative (Negative); Ketones Urine Negative (Negative); Leukocyte Esterase Urine 1+ (Negative); Nitrite Urine Positive (Negative); Protein Urine 1+ (Negative); RBC Urine Automated >30 /hpf (0-4); Urobilinogen Urine Negative (Negative)
[2020-12-01 07:15] LABS: Bilirubin Urine 3+ (Negative)
[2020-12-01] MEDS: LEVOTHYROXINE SODIUM 100 MCG TABLET PO SCH (07:26)
[2020-12-01] MEDS: VANCOMYCIN HCL 250 MG/5 ML SOLN PO SCH ×3 (07:27→20:32)
[2020-12-01] MEDS: SODIUM CHLORIDE 0.9% 1000ML 1,000 ML IV SCH ×2 (07:27→16:18)
[2020-12-01] MEDS: RASPBERRY SYRUP 5 ML UDP PO SCH ×3 (07:27→20:32)
[2020-12-01 07:54] LABS: Amorphous Sediment Urine Present (None Prsent); Calcium Oxalate Crystals Urine Present (None Prsent)
--- NOTE | 2020-12-01 08:04 | CT Scan Report ---
CT SCAN OF THE ABDOMEN AND PELVIS WITHOUT IV CONTRAST CLINICAL HISTORY: Hypotension. Cholangiocarcinoma. COMPARISON STUDY: Abdominal CT dated 09/15/2020. TECHNIQUE: CT scan of the abdomen and pelvis is performed from the lung bases to the proximal femora. Images are reviewed in the axial, sagittal, and coronal planes. IV contrast was not administered for this examination. Note that the examination was performed in significantly suboptimal fashion withou t oral and IV contrast. There is also motion artifact, and streak artifact from the arms which could not be elevated above the abdomen. A dose lowering technique was utilized adhering to the principles of ALARA. CT DOSE: 2007.80 mGy.cm FINDINGS: Lung bases: The heart is mildly enlarged noting trace pericardial effusion. There is diminished atten uation of the cardiac blood pool as compared to the myocardium suggesting anemia. There are trace ple ural effusions with dependent atelectasis. No airspace consolidation is seen typical for pneumonia. T here is a small hiatal hernia. Liver: The unenhanced liver is enlarged, measuring 24.8 cm in length. Hepatic attenuation is diffusel y decreased and heterogeneous. There is a large region of well marginated diminished attenuation thro ughout the right hepatic lobe. There is no intrahepatic biliary ductal dilatation. Associated pneumob christo are noted. Gallbladder: Surgically absent. Common bile duct stents are in place. Spleen: The spleen is enlarged measuring 18 cm in length. Calcifications along the splenic capsular s imilar to previous. Pancreas: The unenhanced pancreas is moderately atrophic and grossly unremarkable. Adrenal glands: Unremarkable. Kidneys: The unenhanced kidneys are normal in size and without hydronephrosis. There are no renal sonu culi identified. There is no evidence of contour deforming renal mass lesion. Abdominal vasculature: The abdominal aorta is normal in course and caliber. Bowel: There is no bowel obstruction. Submucosal fat deposition is seen throughout the colon. This is a nonspecific finding and has been described in the setting of chronic inflammation. The appendix is normal as visualized. Peritoneum: There is a moderate to large volume of abdominopelvic ascites. Omental caking is noted. N o intraperitoneal free air is identified. Lymphadenopathy: There are numerous enlarged upper abdominal lymph nodes. There are also mildly enlar ged retroperitoneal nodes. A left periaortic node on image #192 measures 11 mm in short axis. Pelvic viscera: A tiny focus of gas is noted within the bladder lumen. The bladder is decompressed an d otherwise grossly unremarkable. The uterus is surgically absent. No adnexal lesion is seen. Skeletal structures: The skeletal structures are osteopenic. There is mild lumbosacral spondylosis. N o lytic or blastic lesions are seen. Soft tissues: There is mild body wall edema. IMPRESSION: 1. Significantly suboptimal examination without oral and IV contrast. There is also streak and motion artifact. 2. There is a moderate to large volume of abdominopelvic ascites with evidence of peritoneal carcinom atosis. This is new from 09/15/2020. 3. The liver is enlarged and markedly heterogeneous. There is a large geographic region of diminished attenuation throughout the right lobe which likely represents steatosis. Underlying neoplasm would b e impossible to exclude. 4. Upper abdominal and retroperitoneal lymphadenopathy likely represents metastatic disease. 5. Splenomegaly. 6. Mild cardiac enlargement and trace pleural effusions. 7. Common bile duct stents are in place. Pneumobilia suggests patency of the stents. 8. Additional findings as above. ACT 112: Negative or not required by law. Electronically signed by: Yazan Bowen M.D. 12/01/2020 8:03 AM
--- NOTE | 2020-12-01 08:12 | CT Scan Report ---
HEAD CT NONCONTRAST CT DOSE: HISTORY: Altered mental status. TECHNIQUE: Multiaxial CT images of the head were performed without the use of intravenous contrast. A utomated exposure control was utilized for this study. A dose lowering technique was utilized adheri ng to the principles of ALARA. Comparison: None. Findings: The paranasal sinuses and mastoid air cells are clear. The calvarium and skull base are int act. The ventricles and sulci are within normal limits. There is no mass, hematoma, midline shift, or acute infarct. Impression: No acute intracranial abnormality. ACT 112: Negative or not required by law. Electronically signed by: Carson Garcia M.D. 12/01/2020 8:10 AM
[2020-12-01] MEDS: PIPERACILLIN/TAZOBACTAM 3.375 GM in DEXTROSE 5% 100 ML IV SCH ×2 (09:24→16:45)
[2020-12-01] MEDS: PANTOprazole 40 MG TAB PO SCH (09:25)
[2020-12-01] MEDS: SUCRALFATE 1 GM/10 ML UDC PO SCH ×4 (09:25→22:00)
[2020-12-01] MEDS: estradioL 1 MG TAB PO SCH ×3 (09:25→22:00)
[2020-12-01] MEDS: GABAPENTIN 600 MG TAB PO SCH ×3 (09:25→22:00)
[2020-12-01] MEDS: ESCITALOPRAM OXALATE 20 MG TAB PO SCH (09:25)
--- NOTE | 2020-12-01 09:48 | XRay Report ---
XR chest 1V portable CLINICAL HISTORY: Hypotension COMPARISON STUDY: September 17, 2020 FINDINGS: No pneumothorax. No pleural effusion. Lung volumes are decreased with crowded lung markings. Small atelectasis/infiltrate is seen within le ft retrocardiac region. Cardiomediastinal silhouette is within normal limits in size. No significant pulmonary vascular congestion.. Osseous structures: unremarkable IMPRESSION: 1. Low lung volumes. Possible atelectasis or infiltrate at the left lower lung. ACT 112: Negative or not required by law. The above report was generated using voice recognition software. It may contain grammatical, syntax o r spelling errors. Electronically signed by: Cristina Parsons DO 12/01/2020 9:47 AM
[2020-12-01 11:24] LABS: BUN Creatinine Ratio 18.2 (10-20); Calcium 6.9 mg/dl (8.5-10.1); Creatinine Clr Calc Pharmacy 51.5 ml/min; Est GFR (Non-African American) 40.6 ml/min; Potassium 2.9 mmol/L (3.5-5.1)
--- NOTE | 2020-12-01 11:52 | Gastrointestinal Consultation ---
Date of Consultation December 01, 2020 Assessment & Plan (1) Cholangitis: She appears to be very ill with cholangitis in the setting of cholangiocarcinoma. Cholangitis - as evidenced by leukocytosis, elevated bilirubin, abdominal pain, hypotention and subjective fever. She is acutely ill and urgent ERCP is indicated. Continue Zosyn,, IV fluids, keep n.p.o. Appreciate primary hospitalist service management of electrolyte derangement. Complete C-diff tx (vanco through 12/03 - and consider extending while on antibiotics). We will follow closely Supervising Physician Co-Signing Physician Notes I saw and evaluated the patient. She presents with signs and symptoms suggestive of severe cholangitis. Due to this she needs an emergent ERCP for biliary decompression and stent change. 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 She was due for stent change in the near future but it appears that she presented prematurely. Physical examination Abdominal distention noted Right upper quadrant tenderness noted Scleral icterus noted Impression" patient presenting with signs and symptoms most consistent with cholangitis resulting in severe sepsis. Given this I think emergency decompression is warranted as there is a high risk of mortality should this be untreated. We have discussed the risks of the procedure to include bleeding, infection, perforation, pain, failed biliary cannulation and even . Plan Emergency ERCP today Continue broad-spectrum antibiotic coverage History of Present Illness Reason for Consultation: sepsis, ascites, c diff Requesting Physician: Dr. Coleman Attending Physician: Shazia Escalona MD History of Present Illness Ms. Lidia Quintero is a 50-year-old female patient of Dr. Arciniega with a hx of [place]'s thyroiditis, DM2, hyperlipidemia, HTN, B12 deficiency, GERD, migraines, depression, anxiety. The patient was diagnosed with cholangiocarcinoma in September of this year and status post chemo, currently being held for infection (C-diff diarrhea on 11/23/20, currently on vancomycin). She also underwent paracentesis on November 13 without SBP. She was brought to the emergency department yesterday by by family for pain and confusion. On arrival, leukocytosis (17.5), LFTs increased, total bilirubin 3.1. CT with moderate to large volume abdominal ascites and new peritoneal carcinomatosis. This morning, on Zosyn, IV fluids, after replacement of a total of 70 mEq of potassium, patient's potassium remains low at 2.9. She is awake and alert though has some mild confusion. She is able to tell me who she is and where she is but does not recall the day and time. She continues in a considerable amount of diffuse abdominal pain. She has hypotensive in the 90s over 50s, and mildly tachycardic in the 90s. No shortness of breath. Oxygen saturation is 92% on room air. Allergies Allergy/AdvReac Type Severity Reaction Status Date / Time pineapple Allergy Severe Anaphylaxis Verified 12/01/20 01:53 Home Medications Medication Instructions Recorded Confirmed Type alprazolam 1 mg tablet (Xanax) 1 mg PO BID PRN 09/13/20 12/01/20 History benzonatate 100 mg capsule 100 mg PO BID PRN 09/13/20 12/01/20 History (Lupe Lyman) [id number] 50 1 cap PO Q4H PRN 09/13/20 12/01/20 History mg-325 mg-40 mg capsule docusate sodium 100 mg capsule 100 mg PO BID 09/13/20 12/01/20 History escitalopram oxalate 20 mg tablet 20 mg PO QAM 09/13/20 12/01/20 History (Lexapro) estradiol 1 mg tablet (Estrace) 1 mg PO TID 09/13/20 12/01/20 History gabapentin 600 mg tablet 600 mg PO TID 09/13/20 12/01/20 History levothyroxine 100 mcg tablet 100 mcg PO QAM 09/13/20 12/01/20 History loratadine 10 mg tablet 10 mg PO HS 09/13/20 12/01/20 History losartan 50 mg tablet (Cozaar) 50 mg PO QAM 09/13/20 12/01/20 History omeprazole 40 mg capsule,delayed 40 mg PO QAM 09/13/20 12/01/20 History release ondansetron HCl 4 mg tablet 4 mg PO Q8H PRN 09/13/20 12/01/20 History (Zofran) promethazine 25 mg tablet 25 mg PO HS PRN 09/13/20 12/01/20 History rizatriptan 10 mg tablet 10 mg PO TID PRN 09/13/20 12/01/20 History sennosides 8.6 mg capsule (senna) 8.6 mg PO QAM 09/13/20 12/01/20 History sucralfate 100 mg/mL oral 10 ml PO QID 09/13/20 12/01/20 History suspension (Carafate) topiramate 50 mg tablet (Topamax) 50 mg PO HS 09/13/20 12/01/20 History trazodone 50 mg tablet 50 mg PO HS 09/13/20 12/01/20 History oxycodone 5 mg tablet 5 mg PO Q4H PRN 11/14/20 12/01/20 History albumin, human 25 % 25 % See Rx Instructions .ROUTE .COMPLEX 12/01/20 12/01/20 History intravenous solution polyethylene glycol 3350 17 gram 17 g PO DAILY 12/01/20 12/01/20 History oral powder packet (Miralax) vancomycin 125 mg capsule 125 mg PO QID 12/01/20 12/01/20 History Patient History Medical History Anxiety and depression Arthritis Cholangiocarcinoma 09/14/2020, s/p 2 chemo treatments Constipation Elevated LFTs GERD (gastroesophageal reflux disease) History of abdominal paracentesis 2L removed ([place]), plan for upcoming repeat paracentesis mid 11/2020 Hypertension Hypothyroidism Migraine Peripheral neuropathy Spinal stenosis Stomach ulcer hx Surgical History Family history of reaction to anesthesia Son > combative Father > slow to wake H/O total hysterectomy History of bilateral tubal ligation History of cholecystectomy History of ERCP EGD, EUS, ERCP (09/15/20): Grade view 1, MAC#3, ETT 7 at [facility] History of esophagogastroduodenoscopy (EGD) History of tonsillectomy History of tooth extraction Family History Father Family history of diabetes mellitus Other Family history of factor V deficiency Social History Smoking Status: Never smoker Second Hand Exposure: No; Hx Alcohol Use: No Hx Substance Use: No Preferred Language: Swedish Communication Ability: Effective Director Work Required: No Beliefs That Will Affect Care: None Current Living Situation: Spouse and Family Current Living Situation Comment: and son Feels Safe at Home: Yes Safety Concerns: Feels Safe At This Time Assistive Devices: Denture - Upper and Denture - Lower Review of Systems Review of Systems: ROS: Gen: + weakness, + confusion, reports subjective fevers and weight loss Eyes: No eye redness, or pain, no recent vision changes Resp: No SOB, no cough Cardio: No palpitations/irregular beats, no chest pain GI: See HPI, otherwise (-) : Denies pain on urination Skin: No jaundice, itching or new rashes Physical Exam Constitutional: WD/WN, vitals as above Eyes: PERRL, conjunctivae normal, anicteric sclerae ENMT: external ear and nose normal, oropharynx normal Neck: trachea midline, no thyromegaly Respiratory: normal respiratory effort, lungs clear to auscultation Cardiovascular: mild tachycardia; mild peripheral edema; Regular rhythm Gastrointestinal (Abdomen): Inspection/Auscultation: + abdomen distended (softly, suggesting ascites) and + hypoactive bowel sounds Very tender over the entire upper abdomen Musculoskeletal: no cyanosis or clubbing, extremities motor strength 5/5 Skin: Mild jaundice, no rashes or lesions Neurologic: PERRL, EOMI, accommodation nl, no face palsy, no dysarthria Psychiatric: Orientation: oriented to person, oriented to place and cooperative Thought Process: + looseness of associations Lymphatic: no cervical or axillary lymphadenopathy Results & Data ([facility]) Vital Signs (Past 12 Hours) Vital Signs Temp Pulse Pulse Resp BP BP BP 12/01/20 08:02 36.4 C L 90 16 90/61 L 86/53 L 12/01/20 07:00 88 12/01/20 05:24 91 H 12/01/20 04:37 36.7 C 92 H 18 90/60 L 12/01/20 03:51 92 H 26 H 111/43 L 12/01/20 03:40 89 30 H 81/51 L 12/01/20 03:30 92 H 21 102/57 L 12/01/20 03:20 90 26 H 93/52 L 12/01/20 03:10 89 25 H 91/51 L 12/01/20 03:00 91 H 24 90/52 L 12/01/20 02:50 89 23 88/53 L 12/01/20 02:40 89 24 84/56 L 12/01/20 02:30 90 24 88/54 L 12/01/20 02:20 90 24 80/53 L 12/01/20 01:50 89 23 90/61 L 12/01/20 01:40 89 18 86/55 L 12/01/20 01:30 89 20 71/54 L 12/01/20 01:21 12/01/20 01:20 88 22 76/51 L 12/01/20 01:10 90 22 82/46 L 12/01/20 01:04 95 H 29 H 73/45 L 12/01/20 01:01 36.7 C 92 H 20 90/60 L 12/01/20 00:43 36.6 C 106 H 20 71/43 L Pulse Ox 12/01/20 08:02 93 12/01/20 07:00 12/01/20 05:24 12/01/20 04:37 91 12/01/20 03:51 94 12/01/20 03:40 93 12/01/20 03:30 93 12/01/20 03:20 94 12/01/20 03:10 94 12/01/20 03:00 95 12/01/20 02:50 92 12/01/20 02:40 93 12/01/20 02:30 94 12/01/20 02:20 94 12/01/20 01:50 94 12/01/20 01:40 95 12/01/20 01:30 95 12/01/20 01:21 92 12/01/20 01:20 96 12/01/20 01:10 94 12/01/20 01:04 90 12/01/20 01:01 91 12/01/20 00:43 93 Laboratory Results T bilirubin 3.1, AST 81, ALT 41, Alk Phos 297, WBC 17.5, Hb 12.9, Hct 38, platelets 515, Na 127, K 2.9, Cl 96, CO2 23, BUN 27, Cr 1.4, glucose 98, lactate 2.4 Diagnostic Findings CTAP non contrast 12/01/20: 1. Significantly suboptimal examination without oral and IV contrast. There is also streak and motion artifact. 2. There is a moderate to large volume of abdominopelvic ascites with evidence of peritoneal carcinomatosis. This is new from 09/15/2020. 3. The liver is enlarged and markedly heterogeneous. There is a large geographic region of diminished attenuation throughout the right lobe which likely represents steatosis. Underlying neoplasm would be impossible to exclude. 4. Upper abdominal and retroperitoneal lymphadenopathy likely represents metastatic disease. 5. Splenomegaly. 6. Mild cardiac enlargement and trace pleural effusions. 7. Common bile duct stents are in place. Pneumobilia suggests patency of the stents. 8. Additional findings as above. Other recent diagnostic/therapeutic procedures: US 11/14/20: removal of 2L of fluid. Cx negative for SBP CTAP 2020: 1. New mild to moderate ascites and small bilateral pleural effusions. Stable liver lesions.Stable enlarged lymph nodes. Apparent colonic wall thickening may be related to incomplete distention or inflammation CTAP 2020:Findings consistent with descending/sigmoid colitis. No perforation or abscess. PET 2020:Metabolically-active mass within the central liver (caudate lobe and right lobe surrounding the IVC), consistent with biopsy-proven cholangiocarcinoma. 4.1 x 1.4 cm metabolically-active lymph node metastases within the gastrohepatic ligament.Several metabolically-active liver metastases. CTAP 2020:Suspect obstructing cholangiocarcinoma at the common hepatic duct with metastatic satellite hepatic lesions. Central lesion possibly extends into the caudate lobe. Portacaval and gastrohepatic lymphadenopathy is likely metastatic. Consider tissue sampling and biliary decompression. ERCP 2020:The major papilla appeared normal. - A single segmental biliary stricture was found in the common hepatic duct. The stricture was malignant appearing and likely represents an underlying cholangiocarcinoma. - One pancreatic stent was placed into the ventral pancreatic duct. - One covered metal stent was placed into the common bile duct, due to the length of the stent a second plastic stent was required to bridge through the stricture. EUS 2020:There was no sign of significant pathology in the ampulla. - Evidence of a cholecystectomy. - There was dilation in the common bile duct which measured up to 10 mm. - A 23 mm mass was found in the common hepatic duct. Fine needle aspiration performed. - Multiple metastatic lesions were found in the left lobe of the liver. Fine needle aspiration performed. - There was no sign of significant pathology in the entire pancreas. - Endosonographic images of the left adrenal gland were unremarkable EGD 2020:Normal esophagus. - Z-line regular, 37 cm from the incisors. - Gastritis. Biopsied. - Normal examined duodenum. Medications Administered Zosyn
[2020-12-01] MEDS ORDERED: POTASSIUM CHLORIDE CRTAB 20 MEQ TABCR PO ONE (12:15)
--- NOTE | 2020-12-01 12:43 | Anesthesiology Consultation ---
Date of Service December 01, 2020 Assessment & Plan ASA [id number] Proposed Anesthesia Anesthesia Type: General Risk / Benefits Reviewed With: PT / POA / Parent / Guardian, Accepts Plan and Informed Consent Obtained Additional Comments: pt deemed emergency by dr Grewal History Surgery Operation Date: 12/01/20 09:00 Proposed Procedures p Endoscopic Retrograde Cholangiopancreatogram - Ghazal Grewal DO Height/Weight Height: 5 ft 6 in Weight: 92.5 kg Allergies Allergy/AdvReac Type Severity Reaction Status Date / Time pineapple Allergy Severe Anaphylaxis Verified 12/01/20 01:53 Medications Home Medications Medication Instructions Recorded Confirmed Last Taken alprazolam 1 mg tablet (Xanax) 1 mg PO BID PRN 09/13/20 12/01/20 09/14/20 22:00 benzonatate 100 mg capsule 100 mg PO BID PRN 09/13/20 12/01/20 Unknown (Lupe Lyman) [id number] 50 1 cap PO Q4H PRN 09/13/20 12/01/20 Unknown mg-325 mg-40 mg capsule docusate sodium 100 mg capsule 100 mg PO BID 09/13/20 12/01/20 09/14/20 escitalopram oxalate 20 mg tablet 20 mg PO QAM 09/13/20 12/01/20 09/14/20 08:00 (Lexapro) estradiol 1 mg tablet (Estrace) 1 mg PO TID 09/13/20 12/01/20 09/14/20 08:00 gabapentin 600 mg tablet 600 mg PO TID 09/13/20 12/01/20 09/15/20 07:30 levothyroxine 100 mcg tablet 100 mcg PO QAM 09/13/20 12/01/20 09/15/20 07:30 loratadine 10 mg tablet 10 mg PO HS 09/13/20 12/01/20 09/14/20 08:00 losartan 50 mg tablet (Cozaar) 50 mg PO QAM 09/13/20 12/01/20 09/15/20 omeprazole 40 mg capsule,delayed 40 mg PO QAM 09/13/20 12/01/20 09/15/20 07:30 release ondansetron HCl 4 mg tablet 4 mg PO Q8H PRN 09/13/20 12/01/20 Unknown (Zofran) promethazine 25 mg tablet 25 mg PO HS PRN 09/13/20 12/01/20 09/14/20 20:00 rizatriptan 10 mg tablet 10 mg PO TID PRN 09/13/20 12/01/20 Unknown sennosides 8.6 mg capsule (senna) 8.6 mg PO QAM 09/13/20 12/01/20 09/14/20 08:00 sucralfate 100 mg/mL oral 10 ml PO QID 09/13/20 12/01/20 09/14/20 20:00 suspension (Carafate) topiramate 50 mg tablet (Topamax) 50 mg PO HS 09/13/20 12/01/20 09/14/20 20:00 trazodone 50 mg tablet 50 mg PO HS 09/13/20 12/01/20 09/14/20 20:00 oxycodone 5 mg tablet 5 mg PO Q4H PRN 11/14/20 12/01/20 Unknown albumin, human 25 % 25 % See Rx Instructions .ROUTE .COMPLEX 12/01/20 12/01/20 Unknown intravenous solution polyethylene glycol 3350 17 gram 17 g PO DAILY 12/01/20 12/01/20 Unknown oral powder packet (Miralax) vancomycin 125 mg capsule 125 mg PO QID 12/01/20 12/01/20 Unknown Active Medications Generic Name Dose Route Start Last Admin Trade Name Freq PRN Reason Stop Dose Admin Escitalopram Oxalate 20 mg 12/01/20 09:00 12/01/20 09:25 Escitalopram Oxalate 20 Mg Tab PO 12/31/20 08:59 20 mg QAM WINNIE Administration Estradiol 1 mg 12/01/20 09:00 12/01/20 09:25 Estradiol 1 Mg Tab PO 12/31/20 08:59 1 mg TID WINNIE Administration Gabapentin 600 mg 12/01/20 09:00 12/01/20 09:25 Gabapentin 600 Mg Tab PO 12/31/20 08:59 600 mg TID WINNIE Administration Sodium Chloride 1,000 mls @ 100 mls/hr 12/01/20 04:37 12/01/20 07:27 Nss 1000ml IV 12/31/20 04:36 100 mls/hr .Q10H WINNIE Administration Piperacillin Sod/Tazobactam 115 mls @ 28.75 mls/hr 12/01/20 08:00 12/01/20 09:24 Sod 3.375 gm/ Dextrose IV 12/03/20 07:59 28.8 mls/hr Q8H WINNIE Administration Protocol Levothyroxine Sodium 100 mcg 12/01/20 06:30 12/01/20 07:26 Levothyroxine Sodium 100 Mcg Tablet PO 12/31/20 06:29 100 mcg DAILYBB WINNIE Administration Pantoprazole Sodium 40 mg 12/01/20 09:00 12/01/20 09:25 Pantoprazole 40 Mg Tab PO 12/31/20 08:59 40 mg QAM WINNIE Administration Raspberry 5 ml 12/01/20 06:00 12/01/20 07:27 Raspberry Syrup 5 Ml Udp PO 12/15/20 05:59 5 ml Q6 WINNIE Administration Sucralfate 1 gm 12/01/20 09:00 12/01/20 09:25 Sucralfate 1 Gm/10 Ml Udc PO 12/31/20 08:59 1 gm QID WINNIE Administration Vancomycin HCl 250 mg 12/01/20 06:00 12/01/20 07:27 Vancomycin Hcl 250 Mg/5 Ml Soln PO 12/11/20 05:59 250 mg Q6 WINNIE Administration Past Medical History Medical History Anxiety and depression Arthritis Cholangiocarcinoma 09/14/2020, s/p 2 chemo treatments Constipation Elevated LFTs GERD (gastroesophageal reflux disease) History of abdominal paracentesis 2L removed (CT), plan for upcoming repeat paracentesis mid 11/2020 Hypertension Hypothyroidism Migraine Peripheral neuropathy Spinal stenosis Stomach ulcer hx Exercise / Class Metabolic Activity II 4-5 Yardwork/Stairs/Walk up hill Past Family History Family History Father Family history of diabetes mellitus Other Family history of factor V deficiency Past Surgical History Surgical History Family history of reaction to anesthesia Son > combative Father > slow to wake H/O total hysterectomy History of bilateral tubal ligation History of cholecystectomy History of ERCP EGD, EUS, ERCP (09/15/20): Grade view 1, MAC#3, ETT 7 at [facility] History of esophagogastroduodenoscopy (EGD) History of tonsillectomy History of tooth extraction Past Anesthesia History No Hx of Anesthesia Complications and No Family Hx of Anesthesia Complications History of PONV No Hx of PONV and No Hx of Motion Sickness Social History Smoking Status: Never smoker Hx Alcohol Use: No Hx Substance Use: No substance use type: does not use Review of Systems denies fever/cough/ colds/ chest pain/ SOB/ RUSSELL denies RUSSELL Physical Exam Vital Signs Last Vital Signs Temp 37.4 C 12/01/20 11:40 Pulse 94 H 12/01/20 11:40 Resp 18 12/01/20 11:40 BP 92/59 L 12/01/20 11:40 Pulse Ox 92 12/01/20 11:40 ENMT Mouth: + dentures and + edentulous; no TMJ abnormality and no dentition abnormality Thyromental Distance: > or= 3.5 Finger Breadths Mallampati Class: II Neck neck extension not limited Respiratory normal respiratory effort; no respiratory distress Auscultation: lungs clear to auscultation bilaterally Cardiovascular Rate/Rhythm: regular rate and regular rhythm Neurologic moves all extremities Psychiatric Orientation: alert and oriented x 3 Testing Laboratory Results 12/01/20 01:05 12/01/20 10:41 PT 16.2 Seconds (9.0-12.0) H 12/01/20 01:05 INR 1.7 (0.9-1.1) H 12/01/20 01:05 Urine Color [place] 12/01/20 06:13 Urine Appearance Turbid (Clear) A 12/01/20 06:13 Urine pH 5.0 (4.5-7.5) 12/01/20 06:13 Ur Specific [place] 1.020 (1.000-1.030) 12/01/20 06:13 Urine Protein 1+ (Negative) H 12/01/20 06:13 Urine Glucose (UA) Negative (Negative) 12/01/20 06:13 Urine Ketones Negative (Negative) 12/01/20 06:13 Urine Nitrite Positive (Negative) A 12/01/20 06:13 Ur Leukocyte Esterase 1+ (Negative) H 12/01/20 06:13 Urine WBC (Auto) 10-30 /hpf (0-5) H 12/01/20 06:13 Urine RBC (Auto) >30 /hpf (0-4) H 12/01/20 06:13 U Hyaline Cast (Auto) 1-5 /lpf (0-5) 12/01/20 06:13 U Epithel Cells (Auto) >30 /lpf (0-5) H 12/01/20 06:13 Urine Bacteria (Auto) Negative (Negative) 12/01/20 06:13
[2020-12-01] MEDS ORDERED: ONDANSETRON INJ 2 MG/ML 2 ML VIAL IV PRN (12:47)
[2020-12-01] MEDS ORDERED: HYDROmorphone INJ 2 MG/ML SYR/VIAL IV PRN (12:47)
[2020-12-01] MEDS ORDERED: ePHEDrine sulfate 50 MG/ML AMP IV PRN (12:47)
[2020-12-01] MEDS ORDERED: fentaNYL citrate 100 MCG/2 ML VIAL IV PRN (12:47)
[2020-12-01] MEDS ORDERED: ATROPINE SULFATE 0.1 MG/ML 10ML SYR IV PRN (12:47)
--- NOTE | 2020-12-01 12:54 | History & Physical Bridge Note ---
Date of Service December 01, 2020 History & Physical Bridge Note I have examined the patient, reviewed the History & Physical and in the interval since the performance of the History & Physical I have noted the following changes of clinical significance: no changes noted
[2020-12-01] MEDS ORDERED: INDOMETHACIN 50 MG SUPP PR ONE (13:12)
--- NOTE | 2020-12-01 13:44 | Post Operative Brief Note ---
Immediate Post Op Note v1 Date of Surgery December 01, 2020 Pre & Post Diagnosis Operation Date: 12/01/20 09:00 Pre-Op Diagnosis: Cholangiocarcinoma, Cholangitis Post-Op Diagnosis: Cholangiocarcinoma, Cholangitis I identified the patient and participated in the time-out.: Yes Procedure Operation Date: 12/01/20 09:00 Actual Procedures p Endoscopic Retrograde Cholangiopancreatogram(Not Applicable) - Ghazal Grewal DO Surgeon Ghazal Grewal DO Saloon Keeper none Estimated Blood Loss 0 Findings Consistent with Post-Op Diagnosis
--- NOTE | 2020-12-01 13:50 | Communication Note ---
Date of Service: December 01, 2020 The patient underwent urgent ERCP this afternoon for cholangitis and sepsis. The procedure was notable both for occlusion of her existing biliary stents. We were able to remove the biliary stents, and sweep debris and pus from the common bile duct. A covered metal stent was placed in addition to 2 plastic biliary stents. Recommendations Continue IV hydration Continue broad-spectrum antibiotic coverage May have clear liquids
--- NOTE | 2020-12-01 14:03 | GI REPORT ---
Patient Name: Lidia Quintero Procedure Date: 12/01/2020 1:06 PM Date of : 1970 Admit Type: Inpatient Age: 50 Gender: Female Attending MD: Ghazal Grewal DO Procedure: ERCP Providers: Ghazal Grewal DO Referring MD: MEGHANA DRUMMOND Indications: Suspected ascending cholangitis Medicines: General Anesthesia Complications: No immediate complications. Estimated blood loss: Minimal. Estimated Blood Loss: Estimated blood loss was minimal. Procedure: Pre-Anesthesia Assessment: - Prior to the procedure, a History and Physical was performed, and patient medications, allergies and sensitivities were reviewed. The patient's tolerance of previous anesthesia was reviewed. - The risks and benefits of the procedure and the sedation options and risks were discussed with the patient. All questions were answered and informed consent was obtained. - Patient identification and proposed procedure were verified prior to the procedure by the physician, the nurse and the analytics senior manager. The procedure was verified in the procedure room. - Pre-procedure physical examination revealed no contraindications to sedation. - ASA Grade Assessment: IV - A patient with severe systemic disease that is a constant threat to life. - After reviewing the risks and benefits, the patient was deemed in satisfactory condition to undergo the procedure. - The anesthesia plan was to use general anesthesia. - Immediately prior to administration of medications, the patient was re-assessed for adequacy to receive sedatives. - The heart rate, respiratory rate, oxygen saturations, blood pressure, adequacy of pulmonary ventilation, and response to care were monitored throughout the procedure. - The physical status of the patient was re-assessed after the procedure. After obtaining informed consent, the scope was passed under direct vision. Throughout the procedure, the patient's blood pressure, pulse, and oxygen saturations were monitored continuously. The scope was introduced through the mouth, and advanced to the duodenum and used to inject contrast into the bile duct. The ERCP was accomplished without difficulty. The patient tolerated the procedure well. Findings: A mid level java developer film of the abdomen was obtained. Surgical clips, consistent with a previous cholecystectomy, were seen in the area of the right upper quadrant of the abdomen. A biliary stent was visible on the mid level java developer film. The esophagus was successfully intubated under direct vision without detailed examination of the pharynx, larynx, and associated structures, and upper GI tract. The upper GI tract was grossly normal. Two biliary stents originating in the biliary tree were emerging from the major papilla (one plastic and one covered metal). The stents were visibly occluded. Two stents were removed from the biliary tree using a snare. The bile duct was deeply cannulated with the short-nosed traction sphincterotome and guidewire. Contrast was injected. I personally interpreted the bile duct images. Contrast extended to the hepatic ducts. The common hepatic duct contained a single segmental stenosis 20 mm in length. To discover objects, the biliary tree was swept with a 15 mm balloon starting at the bifurcation. Debris was swept from the duct. Pus was swept from the duct. One 10 Fr by 10 cm covered metal stent was placed 9.5 cm into the common bile duct ([place] [facility]). Pus flowed through the stent. The stent was in good position but did not completly traverse the stricture. Therefore, two 7 Fr by 13 cm biliary stents with a single external flap and a single internal flap were placed 12 cm into the common bile duct. Bile and pus flowed through the stents. The stents were in good position. The endoscope was withdrawn from the patient. Indomethacin 100 mg was given via suppository to decrease the risk of post-ERCP pancreatitis (PEP). Impression: - Two visibly occluded stents from the biliary tree were seen in the major papilla. - A single segmental biliary stricture was found in the common hepatic duct. The stricture was malignant appearing. - Two stents were removed from the biliary tree. - The biliary tree was swept and debris and pus were found. - One covered metal stent was placed into the common bile duct. - Two biliary stents were placed into the common bile duct. - Indomethacin given to decrease risk of post-ERCP pancreatitis. Recommendation: - Return patient to [facility] (would suggest PCU) for ongoing care. - Clear liquid diet today. - Use broad spectrum antibiotics for 2 weeks. - Repeat ERCP in 6 weeks to exchange stent. Ghazal Grewal D.O. Ghazal Grewal, 12/01/2020 2:03:08 PM This report has been signed electronically. Note Initiated On: 12/01/2020 1:06 PM Number of Addenda: 0 I attest to the content of the Intraoperative Record and orders documented therein, exceptions below {[id number]}
--- NOTE | 2020-12-01 14:05 | Fluoroscopy Report ---
[place] ERCP biliary ductal CLINICAL HISTORY: ERCP with stent exchange. COMPARISON STUDY: Abdomen and pelvis CT 12/01/2020. FLUOROSCOPY TIME: 47 seconds. FINDINGS: 12 fluoroscopic spot images of the right upper quadrant demonstrate an endoscope at the sec ond portion of the duodenum. A metallic common bile duct stent is noted. The plastic common bile duct stent is removed. Prior cholecystectomy. This is followed by placement of contrast within the common bile duct and placement of 2 additional plastic common bile duct stents through the indwelling metal lic common bile duct stent. IMPRESSION: Fluoroscopy provided for ERCP as described above. ACT 112: Negative or not required by law. Electronically signed by: Carson Garcia M.D. 12/01/2020 2:04 PM
[2020-12-01 14:34] LABS: Base Excess ABG -3.1 mEq/L (-9-1.8); HCO3 ABG 22 mmol/L (19-24); PCO2 ABG 40 mmHg (35-46); PO2 ABG 94 mmHg (80-95); pH ABG 7.36 (7.35-7.45)
[2020-12-01 14:35] LABS: Allen Test Pos (Pos)
[2020-12-01] MEDS ORDERED: VANCOMYCIN HCL 1,500 MG in SODIUM CHLORIDE 0.9% 500 ML IV SCH (20:00)
--- NOTE | 2020-12-01 20:46 | Communication Note ---
Date of Service: December 01 follow Pt was seen and examined. Lying in bed very drowsy and tired. She cannot keep her eyes opened. Her BP has been running in the low 90's systolic. S/P ERCP performed today by Dr. Grewal 2 occluded visible stents in the biliary tree were seen at the major papilla. A single segmental billary structure was found in the com most recent common hepatic duct, the stricture appeared to be malignancy. 2 stents were removed. Biliary tree was swept debris and pus were found. One covered metal stent was placed into the common bile duct. Two biliary stents were placed into the common bile duct. Gastro recommended 2 weeks of antibiotic. Follow-up in 6 weeks to repeat ERCP for stents exchange. Due to her low blood pressure patient will be monitored in PCU. Will hold oral meds until patient is fully awake. if BP continue worsening, will transfer to the ICU to start on pressors. Potassium remains low, was replaced. Continue IV antibiotic with Zosyn and Vanco. Plan to start full liquid diet once fully awake. Continue monitor closely in PCU. MD Pola
[2020-12-01] MEDS: traZODone HCL 50 MG TAB PO SCH (22:00)
[2020-12-01] MEDS: LORATADINE 10 MG TAB PO SCH (22:00)
[2020-12-01] MEDS: TOPIRAMATE 50 MG TAB PO SCH (22:00)
[2020-12-02] MEDS: PIPERACILLIN/TAZOBACTAM 3.375 GM in DEXTROSE 5% 100 ML IV SCH ×4 (00:20→23:46)
[2020-12-02] MEDS: RASPBERRY SYRUP 5 ML UDP PO SCH ×5 (00:21→23:49)
[2020-12-02] MEDS: VANCOMYCIN HCL 250 MG/5 ML SOLN PO SCH ×5 (00:21→23:48)
[2020-12-02] MEDS: SODIUM CHLORIDE 0.9% 1000ML 1,000 ML IV SCH (02:20)
[2020-12-02 05:32] LABS: INR 1.6 (0.9-1.1); Prothrombin Time 15.6 Seconds (9.0-12.0)
[2020-12-02 05:39] LABS: Albumin Level 1.2 gm/dl (3.4-5.0); Bilirubin Direct 1.3 mg/dl (0-0.2); Creatinine Clr Calc Pharmacy 51.5 ml/min; Est GFR (Non-African American) 40.6 ml/min; Magnesium 2.5 mg/dl (1.8-2.4)
--- NOTE | 2020-12-02 05:43 | Electrocardiogram Report ---
Test Reason : Blood Pressure : / mmHG Vent. Rate : 089 BPM Atrial Rate : 089 BPM P-R Int : 150 ms QRS Dur : 096 ms QT Int : 420 ms P-R-T Axes : 024 -19 018 degrees QTc Int : 511 ms Normal sinus rhythm Possible Anterolateral infarct , age undetermined Prolonged QT Abnormal ECG When compared with ECG of 16-SEP-2020 06:10, OK interval has decreased Vent. rate has increased BY 34 BPM QT has lengthened Confirmed by Yoan St ([id number]) on 12/02/2020 5:43:09 AM Referred By: REFERRED SELF Confirmed By:Yoan St
[2020-12-02 05:49] LABS: Albumin Globulin Ratio 0.3 (0.9-2); Bilirubin,Total 1.6 mg/dl (0.2-1); Globulin 4.2 gm/dl (2.5-4.0); Total Protein 5.4 gm/dl (6.4-8.2)
[2020-12-02 05:50] LABS: Basophils # (auto) 0.01 K/uL (0-0.2); Basophils % (auto) 0.1 %; Eosinophils # (auto) 0.05 K/uL (0-0.5); Eosinophils % (auto) 0.6 %; Hematocrit (blood only) 32.4 % (37-47); Hemoglobin 10.3 g/dL (12.0-16.0); Immature Granulocytes # (auto) 0.06 K/uL (0.00-0.02); Immature Granulocytes % (auto) 0.7 %; Lymphocytes # (auto) 0.46 K/uL (1.2-3.4); Lymphocytes % (auto) 5.4 %; Mean Corpuscular Hemoglobin 30.9 pg (25-34); Mean Corpuscular Hgb Conc 31.8 g/dL (32-36); Mean Corpuscular Volume 97.3 fL (80-100); Mean Platelet Volume 9.8 fL (7.4-10.4); Monocytes # (auto) 0.82 K/uL (0.11-0.59); Monocytes % (auto) 9.7 %; Neutrophils # (auto) 7.09 K/uL (1.4-6.5); Neutrophils % (auto) 83.5 %; Platelet Count 212 K/uL (130-400); RDW Coefficient of Variation 14.9 % (11.5-14.5); RDW Standard Deviation 52.9 fL (36.4-46.3); Red Blood Count 3.33 M/uL (4.2-5.4); White Blood Count 8.49 K/uL (4.8-10.8)
[2020-12-02] MEDS ORDERED: SODIUM CHLORIDE 0.9% 500 ML IV SCH (05:50)
[2020-12-02] MEDS: LEVOTHYROXINE SODIUM 100 MCG TABLET PO SCH (05:55)
--- NOTE | 2020-12-02 06:34 | Anesthesiology Progress Note ---
Date of Service December 02, 2020 Anesthesia Post Procedure Vital Signs Vital Signs: Temp Pulse Pulse Pulse Resp BP BP 12/02/20 05:30 35.8 C L 71 12 82/45 L 12/02/20 04:30 35.5 C L 67 16 86/44 L 12/02/20 02:42 34.9 C L 12/02/20 01:50 34.9 C L 12/02/20 00:27 73 14 103/62 12/01/20 20:00 36.5 C 76 14 92/60 L 12/01/20 16:57 83 12/01/20 15:52 37.2 C 88 16 103/54 L 12/01/20 15:00 93 H 15 92/52 L 12/01/20 14:50 93 H 17 90/52 L 12/01/20 14:45 94 H 17 90/49 L 12/01/20 14:40 94 H 18 83/52 L 12/01/20 14:35 94 H 18 98/53 L 12/01/20 14:30 37 C 96 H 18 91/54 L 12/01/20 14:20 95 H 22 91/52 L 12/01/20 14:10 96 H 24 93/47 L 12/01/20 14:04 36 C L 97 H 24 95/47 L 12/01/20 12:55 37.1 C 92 H 18 92/59 L 12/01/20 11:40 37.4 C 94 H 18 92/59 L 12/01/20 08:02 36.4 C L 90 16 90/61 L 86/53 L 12/01/20 07:00 88 Pulse Ox 12/02/20 05:30 94 12/02/20 04:30 94 12/02/20 02:42 12/02/20 01:50 12/02/20 00:27 100 12/01/20 20:00 98 12/01/20 16:57 12/01/20 15:52 96 12/01/20 15:00 95 12/01/20 14:50 95 12/01/20 14:45 95 12/01/20 14:40 94 12/01/20 14:35 92 12/01/20 14:30 94 12/01/20 14:20 96 12/01/20 14:10 96 12/01/20 14:04 95 12/01/20 12:55 93 12/01/20 11:40 92 12/01/20 08:02 93 12/01/20 07:00 Transfer of Care Handoff Completed per policy Notes Mental Status: alert / awake / arousable (pt had diminished arousal prior to anesthesia) and participated in evaluation Patient Amnestic to Procedure: Yes Nausea / Vomiting: adequately controlled Pain: adequately controlled Airway Patency, RR, SpO2: stable & adequate BP & HR: stable & adequate Hydration State: stable & adequate Anesthetic Complications: no major complications apparent and Pt Satisfied with anesthetic care Notes: pt seen prior to pacu discharge
[2020-12-02 07:45] LABS: Estimated Average Glucose 85 mg/dl; Hemoglobin A1C 4.6 % (4.5-5.6)
[2020-12-02] MEDS: SUCRALFATE 1 GM/10 ML UDC PO SCH ×4 (09:02→20:30)
[2020-12-02] MEDS: estradioL 1 MG TAB PO SCH ×3 (09:02→20:29)
[2020-12-02] MEDS: GABAPENTIN 600 MG TAB PO SCH ×3 (09:03→20:29)
[2020-12-02] MEDS: ESCITALOPRAM OXALATE 20 MG TAB PO SCH (09:03)
[2020-12-02] MEDS: PANTOprazole 40 MG TAB PO SCH (09:04)
[2020-12-02] MEDS ORDERED: POTASSIUM CHLORIDE CRTAB 20 MEQ TABCR PO STA (09:33)
--- NOTE | 2020-12-02 10:13 | Gastroenterology Progress Note ---
Date of Service December 02, 2020 Assessment & Plan (1) Cholangitis: Plan: Much improved after ERCP. May start clear liquids po. Agree with paracentesis for pt comfort. Continue broad spectrum antibiotics for 2 wks. No further GI procedures planned at this point but would consider repeat ERCP if further episodes of bile duct obstruction. Admission and Anticipated Discharge Date Admission Date: December 01, 2020 Supervising Physician Co-Signing Physician Notes I saw and evaluated the patient. She appears to be much improved as compared to yesterday although she does remain to be hypotensive. Her white blood cell count in addition to her liver function enzymes appear to be clear improving as compared to prior to admission. Recommendations Continue with broad-spectrum antibiotic coverage for total of 14 days We will plan for a stent revision in approximately 8 weeks Therapeutic paracentesis as needed for comfort May advance to a full liquid diet today and then as tolerated Please call with any questions or concerns over the weekend Subjective 50-year-old female with cholangiocarcinoma who underwent ERCP yesterday, with removal of 2 occluded stents and placement of new biliary stents and CBD stent. This morning, she is more awake and alert, however she does not recall the details of yesterday's procedure. Paracentesis is planned for today. Leukocytosis has resolved, LFTs are improving TB 3.1->1.6. Review of Systems Review of Systems: ROS: Gen:+ weakness; No fevers Eyes: No eye redness, or pain, no recent vision changes Resp: No SOB, no cough Cardio: No palpitations/irregular beats, no chest pain GI: + moderate, ongoing abdominal pain, no nausea/vomiting : Denies pain on urination Skin: +jaundice, No itching or new rashes Physical Exam Constitutional: WD/WN, vitals as above Eyes: PERRL, conjunctivae normal, anicteric sclerae ENMT: external ear and nose normal, oropharynx normal Neck: trachea midline, no thyromegaly Respiratory: normal respiratory effort, lungs clear to auscultation Gastrointestinal (Abdomen): Inspection/Auscultation: + abdomen distended (softly, suggesting ascites) and normal bowel sounds Musculoskeletal: no cyanosis or clubbing, extremities motor strength 5/5 Neurologic: PERRL, EOMI, accommodation nl, no face palsy, no dysarthria Psychiatric: A+Ox3, euthymic affect Lymphatic: no cervical or axillary lymphadenopathy Results & Data ([facility]) Vital Signs (Past 12 Hours) Vital Signs Temp Pulse Resp BP Pulse Ox 12/02/20 05:30 35.8 C L 71 12 82/45 L 94 12/02/20 04:30 35.5 C L 67 16 86/44 L 94 12/02/20 02:42 34.9 C L 12/02/20 01:50 34.9 C L 12/02/20 00:27 73 14 103/62 100 Laboratory Results WBC 8.4, Hb 10.3, HCT 32, platelets 212, NA 130, K3, CL 31, CR 1.48, glucose 118, total bilirubin 1.6, AST 64, ALT 12, alk phos 213 Diagnostic Findings ERCP yesterday with occluded stents - changed.
[2020-12-02] MEDS: NSS + 20MEQ KCL 20 MEQ/1,000 ML BAG IV SCH (10:38)
[2020-12-02] MEDS: ALBUMIN 25% 12.5 GM/50 ML VIAL IV SCH ×4 (13:13→17:07)
[2020-12-02] MEDS: oxyCODONE HCL IR 5 MG TAB (IMMEDIATE RELEASE) PO PRN ×2 (15:23→23:43)
--- NOTE | 2020-12-02 15:48 | Ultrasound Report ---
US paracentesis abd w/image CLINICAL HISTORY: 50 years-old Female with ascites. Recurrent ascites with cholangiocarcinoma COMPARISON: CT abdomen and pelvis 12/01/2020 PROCEDURE: The procedure was explained to the patient in the care including the benefits and possible risks/complications. The patient gave verbal understanding and written consent was obtained. A time -out was performed prior to the start of the procedure. The patient was placed on the ultrasound table in the supine position. Using ultrasound guidance, an appropriate procedure site in the left lower abdomen was marked. This area was then prepped and drape d in the usual sterile fashion. Local anesthesia was achieved within 1% lidocaine. An 8-[employer] is catheter was then inserted. Approximately 5.0 liters of greenish fluid was removed and 1 L was sen t to the lab for analysis. The catheter was removed and external pressure was held to achieve hemostasis. A sterile dressing was applied to the procedure site. The patient tolerated the procedure well without immediate complicati ons. IMPRESSION: Successful ultrasound-guided paracentesis with removal of 5.0 L ascitic fluid ACT 112: Negative or not required by law. The above report was generated using voice recognition software. It may contain grammatical, syntax o r spelling errors. Electronically signed by: Darin Ponce M.D. 12/02/2020 3:47 PM
--- NOTE | 2020-12-02 16:25 | Hospitalist Progress Note ---
Date of Service December 02, 2020 Assessment & Plan (1) Sepsis: Plan: Came in with hypertensive, temperature on the lower side, increasing white count and borderline high lactate of 2.4. Met sepsis criteria on admission and following checking blood culture she received intravenous fluid and started with intravenous antibiotic with Zosyn and vancomycin. Likely has acute cholangitis Condition seems to be stable and slightly better as of today Electrolytes abnormality We will replace and monitor Elevated transaminases Due to cholangiocarcinoma and biliary obstruction We will monitor LFTs History of C. difficile colitis We will continue oral vancomycin Tense ascites Secondary to cholangiocarcinoma Has had paracentesis about 2 weeks ago We will get another paracentesis today for ongoing discomfort (2) Acute hypotension: Plan: Noted to be borderline hypotensive on admission Blood pressure goes down as low as systolic over 70s Has been receiving intravenous fluids with improvement (3) Cholangitis: Plan: Likely cause of sepsis is acute cholangitis in the setting of cholangiocarcinoma. Noted to have leukocytosis, elevated bilirubin, abdominal pain, hypotension and subjective fever Status post ERCP and placement of stents as mentioned Has been on intravenous Zosyn and vancomycin Await blood culture (4) Jaundice: Plan: Secondary to biliary obstruction due to cholangiocarcinoma Status post stents placement in the jaundice has been improving (5) Anxiety and depression: Plan: We will continue supportive medication (6) Hypothyroidism: Plan: Continue supplement (7) Cholangiocarcinoma: Plan: As above Plan: DVT prophylaxisSCDs INR is elevated to 1.6 CODE STATUS Full Admission and Anticipated Discharge Date Admission Date: December 01, 2020 Subjective 12/02/2020 The patient was seen and examined in ICU She complains of extreme weakness and fatigue Complains today of abdominal distention and discomfort with some pain No fever and/or chills Review of Systems Review of Systems: All systems reviewed and are unremarkable except as noted below Constitutional: + fatigue, + weakness and + anorexia Gastrointestinal: + abdominal pain, + bloating and + nausea; no vomiting Physical Exam Physical Exam: Lying in bed with distress secondary to abdominal discomfort and pain Constitutional: well developed and well nourished; not ill appearing Eyes: PERRL, conjunctivae normal, anicteric sclerae ENMT: external ear and nose normal, oropharynx normal Neck: trachea midline, no thyromegaly Respiratory: no respiratory distress and no cough Auscultation: lungs clear to auscultation bilaterally Cardiovascular: Rate/Rhythm: regular rate and regular rhythm; not tachycardic Heart Sounds: normal S1 and normal S2; no murmur Gastrointestinal (Abdomen): Inspection/Auscultation: + abdomen distended; + abnormal bowel sounds (Decreased) Percussion/Palpation: + abdomen tender, abdomen soft and + ascites; no guarding Neurologic: Alert, awake and oriented x3. Generally weak but no focal neuro deficit Results & Data Results & Data ([facility]) Vital Signs (Past 12 Hours) Vital Signs Temp Pulse Pulse Resp BP BP Pulse Ox 12/02/20 10:03 96 H 16 78/40 L 92 12/02/20 09:55 83 20 75/41 L 91 12/02/20 05:30 35.8 C L 71 12 82/45 L 94 12/02/20 04:30 35.5 C L 67 16 86/44 L 94 Laboratory Results Short CBC 12/02/20 Range/Units 05:12 WBC 8.49 (4.8-10.8) K/uL Hgb 10.3 L (12.0-16.0) g/dL Hct 32.4 L (37-47) % Plt Count 212 D (130-400) K/uL BMP 12/02/20 05:12 Sodium 130 L Potassium 3.0 L Chloride 100 Carbon Dioxide 22 BUN 31 H Creatinine 1.48 H Glucose 108 H Calcium 7.0 L Liver Function 12/02/20 Range/Units 05:12 Total Bilirubin 1.6 H (0.2-1) mg/dl Direct Bilirubin 1.3 H (0-0.2) mg/dl AST 64 H (15-37) U/L ALT 12 (12-78) U/L Alkaline Phosphatase 213 H (45-117) U/L Albumin 1.2 L (3.4-5.0) gm/dl Medications Administered Current Inpatient Medications Alprazolam (Alprazolam 0.5 Mg Tablet) 1 mg PO BID PRN PRN Reason: Anxiety Stop: 12/31/20 04:36 Benzonatate (Benzonatate 100 Mg Capsule) 100 mg PO BID PRN PRN Reason: Cough Stop: 12/31/20 04:36 Butalbital/Aspirin/Caffeine (Butalbital/Aspirin/Caffeine 1 Tab Tab) 1 tab PO Q4H PRN PRN Reason: Headache Stop: 12/31/20 04:36 Escitalopram Oxalate (Escitalopram Oxalate 20 Mg Tab) 20 mg PO QAM [facility] Stop: 12/31/20 08:59 Last Admin: 12/02/20 09:03 Dose: 20 mg Documented by: Estradiol (Estradiol 1 Mg Tab) 1 mg PO TID [facility] Stop: 12/31/20 08:59 Last Admin: 12/02/20 15:25 Dose: 1 mg Documented by: Gabapentin (Gabapentin 600 Mg Tab) 600 mg PO TID [facility] Stop: 12/31/20 08:59 Last Admin: 12/02/20 15:25 Dose: 600 mg Documented by: Piperacillin Sod/Tazobactam (Sod 3.375 gm/ Dextrose) 115 mls @ 28.75 mls/hr IV Q8H [facility]; Protocol Stop: 12/15/20 23:59 Last Admin: 12/02/20 09:04 Dose: 28.8 mls/hr Documented by: Potassium Chloride/Sodium Chloride (Normal Saline W/20 Meq Kcl) 20 meq in 1,000 mls @ 100 mls/hr IV .Q10H [facility] Stop: 01/01/21 09:44 Last Admin: 12/02/20 10:38 Dose: 100 mls/hr Documented by: Levothyroxine Sodium (Levothyroxine Sodium 100 Mcg Tablet) 100 mcg PO DAILYBB [facility] Stop: 12/31/20 06:29 Last Admin: 12/02/20 05:55 Dose: Not Given Documented by: Loratadine (Loratadine 10 Mg Tab) 10 mg PO HS [facility] Stop: 12/31/20 20:59 Last Admin: 12/01/20 22:00 Dose: Not Given Documented by: Miscellaneous Information (Piperacill/Tazobac Consult Active) 1 ea N/A UD PRN PRN Reason: Consult Stop: 12/31/20 01:31 Nitroglycerin (Nitroglycerin Sl 0.4 Mg/Tab Tab) 0.4 mg SL UD PRN PRN Reason: Chest Pain Stop: 12/31/20 04:36 Ondansetron HCl (Ondansetron Inj 2 Mg/Ml 2 Ml Vial) 4 mg IV Q6H PRN PRN Reason: Nausea Stop: 12/31/20 04:36 Ondansetron HCl (Ondansetron 4 Mg Od Tab) 4 mg PO Q8H PRN PRN Reason: Nausea And Vomiting Stop: 12/31/20 04:47 Oxycodone HCl (Oxycodone Hcl Ir 5 Mg Tab (Immediate Release)) 5 mg PO Q4H PRN PRN Reason: Pain Stop: 12/15/20 04:36 Last Admin: 12/02/20 15:23 Dose: 5 mg Documented by: Pantoprazole Sodium (Pantoprazole 40 Mg Tab) 40 mg PO QAM [facility] Stop: 12/31/20 08:59 Last Admin: 12/02/20 09:04 Dose: 40 mg Documented by: Raspberry (Raspberry Syrup 5 Ml Udp) 5 ml PO Q6 [facility] Stop: 12/15/20 05:59 Last Admin: 12/02/20 13:12 Dose: 5 ml Documented by: Rizatriptan Benzoate (Rizatriptan Benzoate 10 Mg Tab) 10 mg PO TID PRN PRN Reason: Migraine Headache Stop: 12/31/20 04:36 Sucralfate (Sucralfate 1 Gm/10 Ml Udc) 1 gm PO QID [facility] Stop: 12/31/20 08:59 Last Admin: 12/02/20 13:13 Dose: 1 gm Documented by: Topiramate (Topiramate 50 Mg Tab) 50 mg PO HS [facility] Stop: 12/31/20 20:59 Last Admin: 12/01/20 22:00 Dose: Not Given Documented by: Trazodone HCl (Trazodone Hcl 50 Mg Tab) 50 mg PO HS [facility] Stop: 12/31/20 20:59 Last Admin: 12/01/20 22:00 Dose: Not Given Documented by: Vancomycin HCl (Vancomycin Hcl 250 Mg/5 Ml Soln) 250 mg PO Q6 [facility] Stop: 12/11/20 05:59 Last Admin: 12/02/20 13:12 Dose: 250 mg Documented by: (1) Sepsis Acute renal failure type: unspecified Sepsis acute organ dysfunction status: with acute organ dysfunction Sepsis type: sepsis due to unspecified organism Severe sepsis acute organ dysfunction type: acute renal failure Severe sepsis shock status: with septic shock Qualified Code(s): A41.9 - Sepsis, unspecified organism; R65.21 - Severe sepsis with septic shock; N17.9 - Acute kidney failure, unspecified
[2020-12-02] MEDS: LORATADINE 10 MG TAB PO SCH (20:29)
[2020-12-02] MEDS: TOPIRAMATE 50 MG TAB PO SCH (20:31)
[2020-12-02] MEDS: traZODone HCL 50 MG TAB PO SCH (20:36)
[2020-12-03] MEDS: NSS + 20MEQ KCL 20 MEQ/1,000 ML BAG IV SCH ×3 (00:15→22:30)
[2020-12-03] MEDS: oxyCODONE HCL IR 5 MG TAB (IMMEDIATE RELEASE) PO PRN ×4 (04:16→19:41)
[2020-12-03] MEDS: VANCOMYCIN HCL 250 MG/5 ML SOLN PO SCH ×4 (05:39→23:34)
[2020-12-03] MEDS: RASPBERRY SYRUP 5 ML UDP PO SCH ×4 (05:39→23:34)
[2020-12-03] MEDS: LEVOTHYROXINE SODIUM 100 MCG TABLET PO SCH (05:40)
[2020-12-03 05:50] LABS: Basophils # (auto) 0.02 K/uL (0-0.2); Basophils % (auto) 0.2 %; Eosinophils # (auto) 0.17 K/uL (0-0.5); Eosinophils % (auto) 1.8 %; Hematocrit (blood only) 30.9 % (37-47); Hemoglobin 10.3 g/dL (12.0-16.0); Immature Granulocytes # (auto) 0.09 K/uL (0.00-0.02); Immature Granulocytes % (auto) 0.9 %; Lymphocytes # (auto) 0.66 K/uL (1.2-3.4); Lymphocytes % (auto) 6.9 %; Mean Corpuscular Hgb Conc 33.3 g/dL (32-36); Mean Platelet Volume 9.6 fL (7.4-10.4); Monocytes # (auto) 0.79 K/uL (0.11-0.59); Monocytes % (auto) 8.3 %; Neutrophils # (auto) 7.77 K/uL (1.4-6.5); Neutrophils % (auto) 81.9 %; Platelet Count 232 K/uL (130-400); RDW Coefficient of Variation 14.9 % (11.5-14.5); RDW Standard Deviation 52.3 fL (36.4-46.3); Red Blood Count 3.22 M/uL (4.2-5.4)
[2020-12-03 05:55] LABS: INR 1.4 (0.9-1.1); Prothrombin Time 14.1 Seconds (9.0-12.0)
[2020-12-03 06:22] LABS: Albumin Level 1.6 gm/dl (3.4-5.0); BUN Creatinine Ratio 26.3 (10-20); Calcium 7.5 mg/dl (8.5-10.1); Creatinine Clr Calc Pharmacy 74.2 ml/min; Est GFR (African American) 71.2 ml/min; Est GFR (Non-African American) 61.4 ml/min; Magnesium 2.4 mg/dl (1.8-2.4); Potassium 3.4 mmol/L (3.5-5.1)
[2020-12-03 06:25] LABS: Albumin Globulin Ratio 0.4 (0.9-2); Bilirubin,Total 1.4 mg/dl (0.2-1); Globulin 3.9 gm/dl (2.5-4.0); Phosphorus 2.3 mg/dl (2.5-4.9); Total Protein 5.5 gm/dl (6.4-8.2)
[2020-12-03] MEDS ORDERED: POTASSIUM PHOS 3 MMOL/1 ML INFUSION IV STA (08:08)
[2020-12-03] MEDS ORDERED: POTASSIUM PHOSPHATE 24 MMOL in SODIUM CHLORIDE 0.9% 500 ML IV ONE (08:30)
[2020-12-03] MEDS: PIPERACILLIN/TAZOBACTAM 3.375 GM in DEXTROSE 5% 100 ML IV SCH ×3 (08:34→23:35)
[2020-12-03] MEDS: estradioL 1 MG TAB PO SCH ×3 (08:35→20:17)
[2020-12-03] MEDS: PANTOprazole 40 MG TAB PO SCH (08:35)
[2020-12-03] MEDS: ESCITALOPRAM OXALATE 20 MG TAB PO SCH (08:35)
[2020-12-03] MEDS: GABAPENTIN 600 MG TAB PO SCH ×3 (08:35→20:17)
[2020-12-03] MEDS: SUCRALFATE 1 GM/10 ML UDC PO SCH ×4 (08:35→20:18)
--- NOTE | 2020-12-03 12:02 | Gastroenterology Progress Note ---
Date of Service December 03, 2020 Assessment & Plan (1) Cholangitis: (2) Cholangiocarcinoma: Plan: s/p ERCP 12/01, on zosyn for cholangitis. LFTs are stable, afebrile. Recs: complete 2 week course of antibiotics diet as tolerated pain control prn supportive care trend LFTs Admission and Anticipated Discharge Date Admission Date: December 01, 2020 Subjective no events overnight, continues to have abdominal pains, tolerating clear liquid diet but not able to eat significant amounts. afebrile. labs reviewed and stable Review of Systems Constitutional: no fever and no chills Respiratory: no cough, no dyspnea and no dyspnea on exertion Cardiovascular: no chest pain and no dyspnea Gastrointestinal: as per Subjective / HPI Psychiatric: no depression and no anxiety Physical Exam Constitutional: WD/WN, vitals as above Respiratory: normal respiratory effort, lungs clear to auscultation Cardiovascular: RRR, no murmur, no edema Gastrointestinal (Abdomen): normal bowel sounds, soft, nontender, no hepatosplenomegaly Musculoskeletal: no lower extremity edema Psychiatric: A+Ox3, euthymic affect Results & Data Results & Data ([facility]) Vital Signs (Past 12 Hours) Vital Signs Temp Pulse Pulse Resp BP BP Pulse Ox 12/03/20 06:43 36.8 C 84 18 94/57 L 92 12/03/20 04:00 36.9 C 84 18 92/50 L 91 12/03/20 00:00 36.8 C 87 82 18 94/55 L 93 PG Care Time/CCT Total # of Minutes Spent Total Time Spent with Patient: Total time spent is greater than 50% in coordination of care (as documented) at patient's floor/unit and/or counseling patient: Coding Level of Care Code 98693 Subseq Hosp Care Lvl 3 Diagnoses Cholangitis K83.09 Cholangiocarcinoma C22.1
--- NOTE | 2020-12-03 13:10 | Hospitalist Progress Note ---
Date of Service December 03, 2020 Assessment & Plan (1) Sepsis: Plan: Came in with hypertensive, temperature on the lower side, increasing white count and borderline high lactate of 2.4. Met sepsis criteria on admission and following checking blood culture she received intravenous fluid and started with intravenous antibiotic with Zosyn and vancomycin. Likely has acute cholangitis Blood cultures have been negative Vancomycin was stopped and intravenous Zosyn continued We will continue antibiotic for a total of 14 days Electrolytes abnormality We will replace and monitor Elevated transaminases Due to cholangiocarcinoma and biliary obstruction We will monitor LFTs-has been improving History of C. difficile colitis We will continue oral vancomycin Tense ascites Secondary to cholangiocarcinoma Has had paracentesis about 2 weeks ago We will get another paracentesis today for ongoing discomfort Has had 5 L paracentesis yesterday She has been feeling a little better today Generalized weakness Multifactorial-worsening cholangiocarcinoma, acute cholangitis and electrolyte imbalance We will get PT and OT evaluation before discharge (2) Acute hypotension: Plan: Noted to be borderline hypotensive on admission Blood pressure goes down as low as systolic over 70s Has been receiving intravenous fluids with improvement Blood pressure remains on the lower side (3) Cholangitis: Plan: Likely cause of sepsis is acute cholangitis in the setting of cholangiocarcinoma. Noted to have leukocytosis, elevated bilirubin, abdominal pain, hypotension and subjective fever Status post ERCP and placement of stents as mentioned -2 visibly occluded stents from the biliary tree wire seen in the major papilla. -A single segmental biliary stricture was found in the common hepatic duct. The stricture was malignant appearing. -2 his stents were removed from the biliary tree -The biliary tree was swept and debris's and possible are found -1 covered metal stent was placed into the common bile duct. -2 biliary stents were placed into the common bile duct -Indomethacin was given to decrease risk of post ERCP pancreatitis Has been on intravenous Zosyn and vancomycin. Vancomycin was stopped later on Await blood culture-negative Continue IV Zosyn (4) Jaundice: Plan: Secondary to biliary obstruction due to cholangiocarcinoma Status post stents placement in the jaundice has been improving (5) Anxiety and depression: Plan: We will continue supportive medication (6) Hypothyroidism: Plan: Continue supplement (7) Cholangiocarcinoma: Plan: As above Plan: DVT prophylaxisSCDs INR is elevated to 1.6 INR is 1.4 today CODE STATUS Full Admission and Anticipated Discharge Date Admission Date: December 01, 2020 Subjective 12/02/2020 The patient was seen and examined in ICU She complains of extreme weakness and fatigue Complains today of abdominal distention and discomfort with some pain No fever and/or chills 12/03/2020 The patient was seen and examined in ICU She remains extremely weak and lethargic Complains of pain in the abdomen the right upper quadrant No fever and no chills Review of Systems Review of Systems: All systems reviewed and are unremarkable except as noted below Constitutional: + fatigue, + weakness and + anorexia Gastrointestinal: + abdominal pain; no bloating, no nausea and no vomiting Physical Exam Physical Exam: Lying in bed with distress secondary to abdominal discomfort and pain Constitutional: well developed and well nourished; not ill appearing Eyes: PERRL, conjunctivae normal, anicteric sclerae ENMT: external ear and nose normal, oropharynx normal Neck: trachea midline, no thyromegaly Respiratory: no respiratory distress and no cough Auscultation: lungs clear to auscultation bilaterally Cardiovascular: Rate/Rhythm: regular rate and regular rhythm; not tachycardic Heart Sounds: normal S1 and normal S2; no murmur Extremities: + edema (1-2+ edema bilaterally) Gastrointestinal (Abdomen): Inspection/Auscultation: + abdomen distended; + abnormal bowel sounds (Decreased) Percussion/Palpation: + abdomen tender, abdomen soft and + ascites; no guarding Musculoskeletal: No acute arthritis in any joint Neurologic: Alert, awake and oriented x3. Generally weak and lethargic Results & Data Results & Data ([facility]) Vital Signs (Past 12 Hours) Vital Signs Temp Pulse Pulse Resp BP BP Pulse Ox 12/03/20 06:43 36.8 C 84 18 94/57 L 92 12/03/20 04:00 36.9 C 84 18 92/50 L 91 Laboratory Results Short CBC 12/03/20 Range/Units 05:35 WBC 9.50 (4.8-10.8) K/uL Hgb 10.3 L (12.0-16.0) g/dL Hct 30.9 L (37-47) % Plt Count 232 (130-400) K/uL BMP 12/03/20 05:35 Sodium 133 L Potassium 3.4 L Chloride 105 Carbon Dioxide 21 BUN 28 H Creatinine 1.05 Glucose 87 Calcium 7.5 L Liver Function 12/03/20 Range/Units 05:35 Total Bilirubin 1.4 H (0.2-1) mg/dl AST 64 H (15-37) U/L ALT 12 (12-78) U/L Alkaline Phosphatase 216 H (45-117) U/L Albumin 1.6 L (3.4-5.0) gm/dl Medications Administered Current Inpatient Medications Alprazolam (Alprazolam 0.5 Mg Tablet) 1 mg PO BID PRN PRN Reason: Anxiety Stop: 12/31/20 04:36 Benzonatate (Benzonatate 100 Mg Capsule) 100 mg PO BID PRN PRN Reason: Cough Stop: 12/31/20 04:36 Last Admin: 12/03/20 05:46 Dose: 100 mg Documented by: Butalbital/Aspirin/Caffeine (Butalbital/Aspirin/Caffeine 1 Tab Tab) 1 tab PO Q4H PRN PRN Reason: Headache Stop: 12/31/20 04:36 Last Admin: 12/03/20 06:10 Dose: 1 tab Documented by: Escitalopram Oxalate (Escitalopram Oxalate 20 Mg Tab) 20 mg PO QAM [facility] Stop: 12/31/20 08:59 Last Admin: 12/03/20 08:35 Dose: 20 mg Documented by: Estradiol (Estradiol 1 Mg Tab) 1 mg PO TID [facility] Stop: 12/31/20 08:59 Last Admin: 12/03/20 08:35 Dose: 1 mg Documented by: Gabapentin (Gabapentin 600 Mg Tab) 600 mg PO TID [facility] Stop: 12/31/20 08:59 Last Admin: 12/03/20 08:35 Dose: 600 mg Documented by: Piperacillin Sod/Tazobactam (Sod 3.375 gm/ Dextrose) 115 mls @ 28.75 mls/hr IV Q8H [facility]; Protocol Stop: 12/15/20 23:59 Last Admin: 12/03/20 08:34 Dose: 28.8 mls/hr Documented by: Potassium Chloride/Sodium Chloride (Normal Saline W/20 Meq Kcl) 20 meq in 1,000 mls @ 100 mls/hr IV .Q10H [facility] Stop: 01/01/21 09:44 Last Admin: 12/03/20 00:15 Dose: 100 mls/hr Documented by: Levothyroxine Sodium (Levothyroxine Sodium 100 Mcg Tablet) 100 mcg PO DAILYBB [facility] Stop: 12/31/20 06:29 Last Admin: 12/03/20 05:40 Dose: 100 mcg Documented by: Loratadine (Loratadine 10 Mg Tab) 10 mg PO [facility] Stop: 12/31/20 20:59 Last Admin: 12/02/20 20:29 Dose: 10 mg Documented by: Miscellaneous Information (Piperacill/Tazobac Consult Active) 1 ea N/A UD PRN PRN Reason: Consult Stop: 12/31/20 01:31 Nitroglycerin (Nitroglycerin Sl 0.4 Mg/Tab Tab) 0.4 mg SL UD PRN PRN Reason: Chest Pain Stop: 12/31/20 04:36 Ondansetron HCl (Ondansetron Inj 2 Mg/Ml 2 Ml Vial) 4 mg IV Q6H PRN PRN Reason: Nausea Stop: 12/31/20 04:36 Ondansetron HCl (Ondansetron 4 Mg Od Tab) 4 mg PO Q8H PRN PRN Reason: Nausea And Vomiting Stop: 12/31/20 04:47 Oxycodone HCl (Oxycodone Hcl Ir 5 Mg Tab (Immediate Release)) 5 mg PO Q4H PRN PRN Reason: Pain Stop: 12/15/20 04:36 Last Admin: 12/03/20 08:34 Dose: 5 mg Documented by: Pantoprazole Sodium (Pantoprazole 40 Mg Tab) 40 mg PO QAM [facility] Stop: 12/31/20 08:59 Last Admin: 12/03/20 08:35 Dose: 40 mg Documented by: Raspberry (Raspberry Syrup 5 Ml Udp) 5 ml PO Q6 [facility] Stop: 12/15/20 05:59 Last Admin: 12/03/20 05:39 Dose: 5 ml Documented by: Rizatriptan Benzoate (Rizatriptan Benzoate 10 Mg Tab) 10 mg PO TID PRN PRN Reason: Migraine Headache Stop: 12/31/20 04:36 Sucralfate (Sucralfate 1 Gm/10 Ml Udc) 1 gm PO QID [facility] Stop: 12/31/20 08:59 Last Admin: 12/03/20 08:35 Dose: 1 gm Documented by: Topiramate (Topiramate 50 Mg Tab) 50 mg PO [facility] Stop: 12/31/20 20:59 Last Admin: 12/02/20 20:31 Dose: 50 mg Documented by: Trazodone HCl (Trazodone Hcl 50 Mg Tab) 50 mg PO HS [facility] Stop: 12/31/20 20:59 Last Admin: 12/02/20 20:36 Dose: 50 mg Documented by: Vancomycin HCl (Vancomycin Hcl 250 Mg/5 Ml Soln) 250 mg PO Q6 [facility] Stop: 12/11/20 05:59 Last Admin: 12/03/20 05:39 Dose: 250 mg Documented by: (1) Sepsis Acute renal failure type: unspecified Sepsis acute organ dysfunction status: with acute organ dysfunction Sepsis type: sepsis due to unspecified organism Severe sepsis acute organ dysfunction type: acute renal failure Severe sepsis shock status: with septic shock Qualified Code(s): A41.9 - Sepsis, unspecified organism; R65.21 - Severe sepsis with septic shock; N17.9 - Acute kidney failure, unspecified
[2020-12-03] MEDS: DEXTROMETHORPHAN POLYMR COMPLX 60 MG/10 ML UDP PO PRN (18:38)
[2020-12-03] MEDS: TOPIRAMATE 50 MG TAB PO SCH (20:17)
[2020-12-03] MEDS: LORATADINE 10 MG TAB PO SCH (20:17)
[2020-12-03] MEDS: traZODone HCL 50 MG TAB PO SCH (20:31)
[2020-12-03] MEDS: ONDANSETRON INJ 2 MG/ML 2 ML VIAL IV PRN (20:31)
[2020-12-04 05:32] LABS: Hematocrit (blood only) 32.2 % (37-47); Hemoglobin 10.5 g/dL (12.0-16.0); Mean Corpuscular Hemoglobin 31.7 pg (25-34); Mean Corpuscular Hgb Conc 32.6 g/dL (32-36); Mean Corpuscular Volume 97.3 fL (80-100); Mean Platelet Volume 9.3 fL (7.4-10.4); Platelet Count 236 K/uL (130-400); RDW Coefficient of Variation 15.1 % (11.5-14.5); RDW Standard Deviation 53.6 fL (36.4-46.3); Red Blood Count 3.31 M/uL (4.2-5.4); White Blood Count 9.44 K/uL (4.8-10.8)
[2020-12-04] MEDS: RASPBERRY SYRUP 5 ML UDP PO SCH ×3 (05:39→17:10)
[2020-12-04] MEDS: VANCOMYCIN HCL 250 MG/5 ML SOLN PO SCH ×3 (05:40→17:10)
[2020-12-04] MEDS: LEVOTHYROXINE SODIUM 100 MCG TABLET PO SCH (05:40)
[2020-12-04 06:07] LABS: BUN Creatinine Ratio 29.6 (10-20); Calcium 7.5 mg/dl (8.5-10.1); Creatinine Clr Calc Pharmacy 126.1 ml/min; Est GFR (Non-African American) 104.4 ml/min; Magnesium 2.3 mg/dl (1.8-2.4); Phosphorus 2.9 mg/dl (2.5-4.9)
[2020-12-04 06:09] LABS: Basophils # (auto) 0.06 K/uL (0-0.2); Basophils % (auto) 0.6 %; Eosinophils # (auto) 0.09 K/uL (0-0.5); Immature Granulocytes # (auto) 0.09 K/uL (0.00-0.02); Lymphocytes # (auto) 0.88 K/uL (1.2-3.4); Lymphocytes % (auto) 9.3 %; Monocytes # (auto) 0.94 K/uL (0.11-0.59); Neutrophils # (auto) 7.38 K/uL (1.4-6.5); Neutrophils % (auto) 78.1 %
[2020-12-04] MEDS: DEXTROMETHORPHAN POLYMR COMPLX 60 MG/10 ML UDP PO PRN ×2 (06:13→14:07)
[2020-12-04] MEDS: oxyCODONE HCL IR 5 MG TAB (IMMEDIATE RELEASE) PO PRN ×3 (06:46→20:33)
[2020-12-04] MEDS: PIPERACILLIN/TAZOBACTAM 3.375 GM in DEXTROSE 5% 100 ML IV SCH ×2 (08:17→17:09)
[2020-12-04] MEDS: NSS + 20MEQ KCL 20 MEQ/1,000 ML BAG IV SCH ×2 (08:18→17:10)
[2020-12-04] MEDS: ESCITALOPRAM OXALATE 20 MG TAB PO SCH (08:19)
[2020-12-04] MEDS: GABAPENTIN 600 MG TAB PO SCH ×3 (08:19→20:34)
[2020-12-04] MEDS: PANTOprazole 40 MG TAB PO SCH (08:19)
[2020-12-04] MEDS: estradioL 1 MG TAB PO SCH ×3 (08:19→20:34)
[2020-12-04] MEDS: SUCRALFATE 1 GM/10 ML UDC PO SCH ×4 (08:19→20:34)
--- NOTE | 2020-12-04 14:24 | Hospitalist Progress Note ---
Date of Service December 04, 2020 Assessment & Plan (1) Sepsis: Plan: Came in with hypertensive, temperature on the lower side, increasing white count and borderline high lactate of 2.4. Met sepsis criteria on admission and following checking blood culture she received intravenous fluid and started with intravenous antibiotic with Zosyn and vancomycin. Likely has acute cholangitis Blood cultures have been negative Vancomycin was stopped and intravenous Zosyn continued We will continue antibiotic for a total of 14 days No more fever and/or chills Electrolytes abnormality We will replace and monitor Electrolytes have been stable Elevated transaminases Due to cholangiocarcinoma and biliary obstruction We will monitor LFTs-has been improving History of C. difficile colitis We will continue oral vancomycin Tense ascites Secondary to cholangiocarcinoma Has had paracentesis about 2 weeks ago We will get another paracentesis today for ongoing discomfort Has had 5 L paracentesis yesterday She has been feeling a little better today Generalized weakness Multifactorial-worsening cholangiocarcinoma, acute cholangitis and electrolyte imbalance We will get PT and OT evaluation before discharge (2) Acute hypotension: Plan: Noted to be borderline hypotensive on admission Blood pressure goes down as low as systolic over 70s Has been receiving intravenous fluids with improvement Blood pressure remains on the lower side (3) Cholangitis: Plan: Likely cause of sepsis is acute cholangitis in the setting of cholangiocarci noma. Noted to have leukocytosis, elevated bilirubin, abdominal pain, hypotension and subjective fever Status post ERCP and placement of stents as mentioned -2 visibly occluded stents from the biliary tree wire seen in the major papilla. -A single segmental biliary stricture was found in the common hepatic duct. The stricture was malignant appearing. -2 his stents were removed from the biliary tree -The biliary tree was swept and debris's and possible are found -1 covered metal stent was placed into the common bile duct. -2 biliary stents were placed into the common bile duct -Indomethacin was given to decrease risk of post ERCP pancreatitis Has been on intravenous Zosyn and vancomycin. Vancomycin was stopped later on Await blood culture-negative Continue IV Zosyn for a total of 14 days (4) Jaundice: Plan: Secondary to biliary obstruction due to cholangiocarcinoma Status post stents placement in the jaundice has been improving (5) Anxiety and depression: Plan: We will continue supportive medication (6) Hypothyroidism: Plan: Continue supplement (7) Cholangiocarcinoma: Plan: As above Prognosis remains poor Plan: DVT prophylaxisSCDs INR is elevated to 1.6 INR is 1.4 today 12/03/2020 Will start subcu Lovenox CODE STATUS Full Admission and Anticipated Discharge Date Admission Date: December 01, 2020 Subjective 12/02/2020 The patient was seen and examined in ICU She complains of extreme weakness and fatigue Complains today of abdominal distention and discomfort with some pain No fever and/or chills 12/03/2020 The patient was seen and examined in ICU She remains extremely weak and lethargic Complains of pain in the abdomen the right upper quadrant No fever and no chills 12/04/2020 The patient was seen and examined in ICU She remains very lethargic and still complains of pain in the right upper quadrant Denies any fever and/or chills, any nausea and or vomiting Review of Systems Review of Systems: All systems reviewed and are unremarkable except as noted below Constitutional: + fatigue, + weakness and + anorexia Gastrointestinal: + abdominal pain; no bloating, no nausea and no vomiting Physical Exam Physical Exam: Lying in bed with distress secondary to abdominal discomfort and pain Constitutional: well developed and well nourished; not ill appearing Eyes: PERRL, conjunctivae normal, anicteric sclerae ENMT: external ear and nose normal, oropharynx normal Neck: trachea midline, no thyromegaly Respiratory: no respiratory distress and no cough Auscultation: lungs clear to auscultation bilaterally Cardiovascular: Rate/Rhythm: regular rate and regular rhythm; not tachycardic Heart Sounds: normal S1 and normal S2; no murmur Extremities: + edema (1-2+ edema bilaterally) Gastrointestinal (Abdomen): Inspection/Auscultation: + abdomen distended; + abnormal bowel sounds (Decreased) Percussion/Palpation: + abdomen tender, abdomen soft and + ascites; no guarding Musculoskeletal: No acute arthritis in any joint Neurologic: Alert, awake and oriented x3. Generally very weak and lethargic Results & Data Results & Data ([facility]) Vital Signs (Past 12 Hours) Vital Signs Temp Pulse Resp BP Pulse Ox 12/04/20 12:00 36.4 C L 87 18 113/57 L 94 12/04/20 08:00 36.8 C 85 16 110/66 94 12/04/20 03:34 36.8 C 83 16 105/57 L 92 Laboratory Results Short CBC 12/04/20 Range/Units 05:21 WBC 9.44 (4.8-10.8) K/uL Hgb 10.5 L (12.0-16.0) g/dL Hct 32.2 L (37-47) % Plt Count 236 (130-400) K/uL BMP 12/04/20 05:21 Sodium 136 Potassium 4.0 D Chloride 109 H Carbon Dioxide 21 BUN 18 Creatinine 0.62 D Glucose 99 Calcium 7.5 L Medications Administered Current Inpatient Medications Alprazolam (Alprazolam 0.5 Mg Tablet) 1 mg PO BID PRN PRN Reason: Anxiety Stop: 12/31/20 04:36 Benzonatate (Benzonatate 100 Mg Capsule) 100 mg PO BID PRN PRN Reason: Cough Stop: 12/31/20 04:36 Last Admin: 12/03/20 05:46 Dose: 100 mg Documented by: Butalbital/Aspirin/Caffeine (Butalbital/Aspirin/Caffeine 1 Tab Tab) 1 tab PO Q4H PRN PRN Reason: Headache Stop: 12/31/20 04:36 Last Admin: 12/03/20 06:10 Dose: 1 tab Documented by: Nystatin 30 ml/ Dexamethasone 3.75 mg/ Diphenhydramine HCl 300 mg/ Sucrose 45 ml/Microcrystalline Cellulose 45 ml/ [employer] 1 ea 0 ml PO Q4H PRN PRN Reason: Dyspepsia Stop: 01/02/21 17:29 Last Admin: 12/03/20 20:15 Dose: 5 ml Documented by: Dextromethorphan Polymer Complex (Dextromethorphan Polymr Complx 60 Mg/10 Ml Udp) 60 mg PO Q12H PRN PRN Reason: Cough Stop: 01/02/21 17:29 Last Admin: 12/04/20 14:07 Dose: 60 mg Documented by: Escitalopram Oxalate (Escitalopram Oxalate 20 Mg Tab) 20 mg PO QAM [facility] Stop: 12/31/20 08:59 Last Admin: 12/04/20 08:19 Dose: 20 mg Documented by: Estradiol (Estradiol 1 Mg Tab) 1 mg PO TID [facility] Stop: 12/31/20 08:59 Last Admin: 12/04/20 08:19 Dose: 1 mg Documented by: Gabapentin (Gabapentin 600 Mg Tab) 600 mg PO TID [facility] Stop: 12/31/20 08:59 Last Admin: 12/04/20 08:19 Dose: 600 mg Documented by: Piperacillin Sod/Tazobactam (Sod 3.375 gm/ Dextrose) 115 mls @ 28.75 mls/hr IV Q8H [facility]; Protocol Stop: 12/15/20 23:59 Last Infusion: 12/04/20 13:24 Dose: Infused Documented by: Potassium Chloride/Sodium Chloride (Normal Saline W/20 Meq Kcl) 20 meq in 1,000 mls @ 100 mls/hr IV .Q10H [facility] Stop: 01/01/21 09:44 Last Admin: 12/04/20 08:18 Dose: 100 mls/hr Documented by: Levothyroxine Sodium (Levothyroxine Sodium 100 Mcg Tablet) 100 mcg PO DAILYBB [facility] Stop: 12/31/20 06:29 Last Admin: 12/04/20 05:40 Dose: 100 mcg Documented by: Loratadine (Loratadine 10 Mg Tab) 10 mg PO [facility] Stop: 12/31/20 20:59 Last Admin: 12/03/20 20:17 Dose: 10 mg Documented by: Miscellaneous Information (Piperacill/Tazobac Consult Active) 1 ea N/A UD PRN PRN Reason: Consult Stop: 12/31/20 01:31 Nitroglycerin (Nitroglycerin Sl 0.4 Mg/Tab Tab) 0.4 mg SL UD PRN PRN Reason: Chest Pain Stop: 12/31/20 04:36 Ondansetron HCl (Ondansetron Inj 2 Mg/Ml 2 Ml Vial) 4 mg IV Q6H PRN PRN Reason: Nausea Stop: 12/31/20 04:36 Last Admin: 12/03/20 20:31 Dose: 4 mg Documented by: Ondansetron HCl (Ondansetron 4 Mg Od Tab) 4 mg PO Q8H PRN PRN Reason: Nausea And Vomiting Stop: 12/31/20 04:47 Oxycodone HCl (Oxycodone Hcl Ir 5 Mg Tab (Immediate Release)) 5 mg PO Q4H PRN PRN Reason: Pain Stop: 12/15/20 04:36 Last Admin: 12/04/20 11:21 Dose: 5 mg Documented by: Pantoprazole Sodium (Pantoprazole 40 Mg Tab) [facility] [place] Stop: 12/31/20 08:59 Last Admin: 12/04/20 08:19 Dose: 40 mg Documented by: Raspberry (Raspberry Syrup 5 Ml Udp) 5 ml PO Q6 [facility] Stop: 12/15/20 05:59 Last Admin: 12/04/20 11:22 Dose: 5 ml Documented by: Rizatriptan Benzoate (Rizatriptan Benzoate 10 Mg Tab) 10 mg PO TID PRN PRN Reason: Migraine Headache Stop: 12/31/20 04:36 Sucralfate (Sucralfate 1 Gm/10 Ml Udc) 1 gm PO QID [facility] Stop: 12/31/20 08:59 Last Admin: 12/04/20 14:08 Dose: 1 gm Documented by: Topiramate (Topiramate 50 Mg Tab) 50 mg PO HS [facility] Stop: 12/31/20 20:59 Last Admin: 12/03/20 20:17 Dose: 50 mg Documented by: Trazodone HCl (Trazodone Hcl 50 Mg Tab) 50 mg PO HS [facility] Stop: 12/31/20 20:59 Last Admin: 12/03/20 20:31 Dose: 50 mg Documented by: Vancomycin HCl (Vancomycin Hcl 250 Mg/5 Ml Soln) 250 mg PO Q6 [facility] Stop: 12/11/20 05:59 Last Admin: 12/04/20 11:22 Dose: 250 mg Documented by: (1) Sepsis Acute renal failure type: unspecified Sepsis acute organ dysfunction status: with acute organ dysfunction Sepsis type: sepsis due to unspecified organism Severe sepsis acute organ dysfunction type: acute renal failure Severe sepsis shock status: with septic shock Qualified Code(s): A41.9 - Sepsis, unspecified organism; R65.21 - Severe sepsis with septic shock; N17.9 - Acute kidney failure, unspecified
[2020-12-04] MEDS: ENOXAPARIN INJ 30 MG/0.3 ML SYR SQ SCH (17:09)
[2020-12-04] MEDS: traZODone HCL 50 MG TAB PO SCH (20:33)
[2020-12-04] MEDS: LORATADINE 10 MG TAB PO SCH (20:34)
[2020-12-04] MEDS: TOPIRAMATE 50 MG TAB PO SCH (20:34)
[2020-12-04] MEDS: ONDANSETRON INJ 2 MG/ML 2 ML VIAL IV PRN (23:06)
[2020-12-05] MEDS: RASPBERRY SYRUP 5 ML UDP PO SCH ×5 (00:11→22:54)
[2020-12-05] MEDS: PIPERACILLIN/TAZOBACTAM 3.375 GM in DEXTROSE 5% 100 ML IV SCH ×2 (00:11→08:10)
[2020-12-05] MEDS: VANCOMYCIN HCL 250 MG/5 ML SOLN PO SCH ×5 (00:12→22:54)
[2020-12-05] MEDS: NSS + 20MEQ KCL 20 MEQ/1,000 ML BAG IV SCH ×2 (04:12→14:58)
[2020-12-05 05:37] LABS: Hematocrit (blood only) 34.2 % (37-47); Hemoglobin 10.9 g/dL (12.0-16.0); Mean Corpuscular Hemoglobin 30.8 pg (25-34); Mean Corpuscular Hgb Conc 31.9 g/dL (32-36); Mean Corpuscular Volume 96.6 fL (80-100); Mean Platelet Volume 9.3 fL (7.4-10.4); Platelet Count 242 K/uL (130-400); RDW Standard Deviation 52.8 fL (36.4-46.3); Red Blood Count 3.54 M/uL (4.2-5.4); White Blood Count 9.59 K/uL (4.8-10.8)
[2020-12-05 05:52] LABS: Basophils # (auto) 0.07 K/uL (0-0.2); Basophils % (auto) 0.7 %; Eosinophils # (auto) 0.11 K/uL (0-0.5); Eosinophils % (auto) 1.1 %; Immature Granulocytes # (auto) 0.13 K/uL (0.00-0.02); Immature Granulocytes % (auto) 1.4 %; Lymphocytes # (auto) 1.07 K/uL (1.2-3.4); Lymphocytes % (auto) 11.2 %; Monocytes # (auto) 1.05 K/uL (0.11-0.59); Monocytes % (auto) 10.9 %; Neutrophils # (auto) 7.16 K/uL (1.4-6.5); Neutrophils % (auto) 74.7 %; RBC Morphology Unremarkable
[2020-12-05] MEDS: LEVOTHYROXINE SODIUM 100 MCG TABLET PO SCH (05:58)
[2020-12-05 06:12] LABS: Albumin Globulin Ratio 0.3 (0.9-2); Albumin Level 1.4 gm/dl (3.4-5.0); BUN Creatinine Ratio 18.7 (10-20); Bilirubin,Total 1.2 mg/dl (0.2-1); Calcium 7.8 mg/dl (8.5-10.1); Creatinine Clr Calc Pharmacy 162.9 ml/min; Est GFR (African American) 131.6 ml/min; Est GFR (Non-African American) 113.6 ml/min; Globulin 4.5 gm/dl (2.5-4.0); Phosphorus 2.2 mg/dl (2.5-4.9); Total Protein 5.9 gm/dl (6.4-8.2)
[2020-12-05 07:31] LABS: Potassium 4.2 mmol/L (3.5-5.1)
[2020-12-05 07:36] LABS: Magnesium 2.1 mg/dl (1.8-2.4)
[2020-12-05] MEDS: ESCITALOPRAM OXALATE 20 MG TAB PO SCH (08:09)
[2020-12-05] MEDS: estradioL 1 MG TAB PO SCH ×3 (08:09→20:11)
[2020-12-05] MEDS: SUCRALFATE 1 GM/10 ML UDC PO SCH ×4 (08:09→20:11)
[2020-12-05] MEDS: PANTOprazole 40 MG TAB PO SCH (08:09)
[2020-12-05] MEDS: GABAPENTIN 600 MG TAB PO SCH ×3 (08:09→20:11)
[2020-12-05] MEDS: ENOXAPARIN INJ 30 MG/0.3 ML SYR SQ SCH (09:01)
[2020-12-05] MEDS ORDERED: SODIUM PHOSPHATE 3 MMOL/1 ML 5 ML VIAL IV ONE (09:20)
[2020-12-05] MEDS ORDERED: SODIUM PHOSPHATE 24 MMOL in SODIUM CHLORIDE 0.9% 500 ML IV ONE (09:45)
[2020-12-05] MEDS: oxyCODONE HCL IR 5 MG TAB (IMMEDIATE RELEASE) PO PRN (15:15)
[2020-12-05] MEDS: ONDANSETRON INJ 2 MG/ML 2 ML VIAL IV PRN (15:44)
--- NOTE | 2020-12-05 16:55 | Hospitalist Progress Note ---
Date of Service December 05, 2020 Assessment & Plan (1) Sepsis: Plan: Came in with hypertensive, temperature on the lower side, increasing white count and borderline high lactate of 2.4. Met sepsis criteria on admission and following checking blood culture she received intravenous fluid and started with intravenous antibiotic with Zosyn and vancomycin. Likely has acute cholangitis Blood cultures have been negative Vancomycin was stopped and intravenous Zosyn continued We will continue antibiotic for a total of 14 days No more fever and/or chills We will change antibiotic to oral Cipro and Flagyl Check EKG tomorrow to make sure there is no worsening QT prolongation Electrolytes abnormality We will replace and monitor Electrolytes have been stable Elevated transaminases Due to cholangiocarcinoma and biliary obstruction We will monitor LFTs-has been improving History of C. difficile colitis We will continue oral vancomycin Tense ascites Secondary to cholangiocarcinoma Has had paracentesis about 2 weeks ago We will get another paracentesis today for ongoing discomfort Has had 5 L paracentesis yesterday She has been feeling a little better today Complains to have abdominal discomfort and afraid that the fluid is coming back Generalized weakness Multifactorial-worsening cholangiocarcinoma, acute cholangitis and electrolyte imbalance We will get PT and OT evaluation before discharge (2) Acute hypotension: Plan: Noted to be borderline hypotensive on admission Blood pressure goes down as low as systolic over 70s Has been receiving intravenous fluids with improvement Blood pressure remains on the lower side (3) Cholangitis: Plan: Likely cause of sepsis is acute cholangitis in the setting of cholangiocarc inoma. Noted to have leukocytosis, elevated bilirubin, abdominal pain, hypotension and subjective fever Status post ERCP and placement of stents as mentioned -2 visibly occluded stents from the biliary tree wire seen in the major papilla. -A single segmental biliary stricture was found in the common hepatic duct. The stricture was malignant appearing. -2 his stents were removed from the biliary tree -The biliary tree was swept and debris's and possible are found -1 covered metal stent was placed into the common bile duct. -2 biliary stents were placed into the common bile duct -Indomethacin was given to decrease risk of post ERCP pancreatitis Has been on intravenous Zosyn and vancomycin. Vancomycin was stopped later on Await blood culture-negative Continue IV Zosyn for a total of 14 days We will change antibiotic to oral Cipro and Flagyl to continue the course (4) Jaundice: Plan: Secondary to biliary obstruction due to cholangiocarcinoma Status post stents placement in the jaundice has been improving (5) Anxiety and depression: Plan: We will continue supportive medication (6) Hypothyroidism: Plan: Continue supplement (7) Cholangiocarcinoma: Plan: As above Prognosis remains poor Plan: DVT prophylaxisSCDs INR is elevated to 1.6 INR is 1.4 today 12/03/2020 Will start subcu Lovenox CODE STATUS Full Admission and Anticipated Discharge Date Admission Date: December 01, 2020 Subjective 12/02/2020 The patient was seen and examined in ICU She complains of extreme weakness and fatigue Complains today of abdominal distention and discomfort with some pain No fever and/or chills 12/03/2020 The patient was seen and examined in ICU She remains extremely weak and lethargic Complains of pain in the abdomen the right upper quadrant No fever and no chills 12/04/2020 The patient was seen and examined in ICU She remains very lethargic and still complains of pain in the right upper quadrant Denies any fever and/or chills, any nausea and or vomiting December 05, 2020 The patient was seen and examined in medical floor She remains stable and little better today Continues to have abdominal discomfort with anorexia No fever and/or chills Review of Systems Review of Systems: All systems reviewed and are unremarkable except as noted below Constitutional: + fatigue, + weakness and + anorexia Gastrointestinal: + abdominal pain; no bloating, no nausea and no vomiting Physical Exam Physical Exam: Lying in bed with distress secondary to abdominal discomfort and pain Constitutional: well developed and well nourished; not ill appearing Eyes: PERRL, conjunctivae normal, anicteric sclerae ENMT: external ear and nose normal, oropharynx normal Neck: trachea midline, no thyromegaly Respiratory: no respiratory distress and no cough Auscultation: lungs clear to auscultation bilaterally Cardiovascular: Rate/Rhythm: regular rate and regular rhythm; not tachycardic Heart Sounds: normal S1 and normal S2; no murmur Extremities: + edema (1-2+ edema bilaterally) Gastrointestinal (Abdomen): Inspection/Auscultation: + abdomen distended; + abnormal bowel sounds (Decreased) Percussion/Palpation: + abdomen tender, abdomen soft and + ascites; no guarding Musculoskeletal: No acute arthritis in any joint Neurologic: Alert, awake and oriented x3. Generally very weak and lethargic Results & Data Results & Data ([facility]) Vital Signs (Past 12 Hours) Vital Signs Temp Pulse Pulse Resp BP BP Pulse Ox 12/05/20 07:52 37 C 81 16 111/72 94 12/05/20 05:59 80 17 109/81 Laboratory Results Short CBC 12/05/20 Range/Units 05:19 WBC 9.59 (4.8-10.8) K/uL Hgb 10.9 L (12.0-16.0) g/dL Hct 34.2 L (37-47) % Plt Count 242 (130-400) K/uL BMP 12/05/20 12/05/20 05:19 06:25 Sodium 140 Potassium 4.2 Chloride 109 H Carbon Dioxide 25 BUN 9 D Creatinine 0.48 L Glucose 111 H Calcium 7.8 L Liver Function 12/05/20 12/05/20 Range/Units 05:19 06:25 Total Bilirubin 1.2 H (0.2-1) mg/dl AST 51 H (15-37) U/L ALT 11 L (12-78) U/L Alkaline Phosphatase 237 H (45-117) U/L Albumin 1.4 L (3.4-5.0) gm/dl Medications Administered Current Inpatient Medications Alprazolam (Alprazolam 0.5 Mg Tablet) 1 mg PO BID PRN PRN Reason: Anxiety Stop: 12/31/20 04:36 Benzonatate (Benzonatate 100 Mg Capsule) 100 mg PO BID PRN PRN Reason: Cough Stop: 12/31/20 04:36 Last Admin: 12/03/20 05:46 Dose: 100 mg Documented by: Butalbital/Aspirin/Caffeine (Butalbital/Aspirin/Caffeine 1 Tab Tab) 1 tab PO Q4H PRN PRN Reason: Headache Stop: 12/31/20 04:36 Last Admin: 12/03/20 06:10 Dose: 1 tab Documented by: Ciprofloxacin (Ciprofloxacin 500 Mg Tab) 500 mg PO BID WINNIE Stop: 12/15/20 23:59 Nystatin 30 ml/ Dexamethasone 3.75 mg/ Diphenhydramine HCl 300 mg/ Sucrose 45 ml/Microcrystalline Cellulose 45 ml/ BARCODE IDENTIFIER 1 ea 0 ml PO Q4H PRN PRN Reason: Dyspepsia Stop: 01/02/21 17:29 Last Admin: 12/05/20 09:01 Dose: 5 ml Documented by: Dextromethorphan Polymer Complex (Dextromethorphan Polymr Complx 60 Mg/10 Ml Udp) 60 mg PO Q12H PRN PRN Reason: Cough Stop: 01/02/21 17:29 Last Admin: 12/04/20 14:07 Dose: 60 mg Documented by: Enoxaparin Sodium (Enoxaparin Inj 30 Mg/0.3 Ml Syr) 30 mg SQ QAM [facility] Stop: 01/03/21 14:29 Last Admin: 12/05/20 09:01 Dose: 30 mg Documented by: Escitalopram Oxalate (Escitalopram Oxalate 20 Mg Tab) 20 mg PO QAM [facility] Stop: 12/31/20 08:59 Last Admin: 12/05/20 08:09 Dose: 20 mg Documented by: Estradiol (Estradiol 1 Mg Tab) 1 mg PO TID [facility] Stop: 12/31/20 08:59 Last Admin: 12/05/20 14:28 Dose: 1 mg Documented by: Gabapentin (Gabapentin 600 Mg Tab) 600 mg PO TID WINNIE Stop: 12/31/20 08:59 Last Admin: 12/05/20 14:58 Dose: 600 mg Documented by: Potassium Chloride/Sodium Chloride (Normal Saline W/20 Meq Kcl) 20 meq in 1,000 mls @ 100 mls/hr IV .Q10H [facility]NIE Stop: 01/01/21 09:44 Last Admin: 12/05/20 14:58 Dose: 100 mls/hr Documented by: Levothyroxine Sodium (Levothyroxine Sodium 100 Mcg Tablet) 100 mcg PO DAILYBB [facility] Stop: 12/31/20 06:29 Last Admin: 12/05/20 05:58 Dose: 100 mcg Documented by: Loratadine (Loratadine 10 Mg Tab) 10 mg PO HS [facility] Stop: 12/31/20 20:59 Last Admin: 12/04/20 20:34 Dose: 10 mg Documented by: Metronidazole (Metronidazole 500 Mg Tab) 500 mg PO TID [facility] Stop: 12/15/20 23:59 Nitroglycerin (Nitroglycerin Sl 0.4 Mg/Tab Tab) 0.4 mg SL UD PRN PRN Reason: Chest Pain Stop: 12/31/20 04:36 Ondansetron HCl (Ondansetron Inj 2 Mg/Ml 2 Ml Vial) 4 mg IV Q6H PRN PRN Reason: Nausea Stop: 12/31/20 04:36 Last Admin: 12/05/20 15:44 Dose: 4 mg Documented by: Ondansetron HCl (Ondansetron 4 Mg Od Tab) 4 mg PO Q8H PRN PRN Reason: Nausea And Vomiting Stop: 12/31/20 04:47 Oxycodone HCl (Oxycodone Hcl Ir 5 Mg Tab (Immediate Release)) 5 mg PO Q4H PRN PRN Reason: Pain Stop: 12/15/20 04:36 Last Admin: 12/05/20 15:15 Dose: 5 mg Documented by: Pantoprazole Sodium (Pantoprazole 40 Mg Tab) 40 mg PO QAM [facility] Stop: 12/31/20 08:59 Last Admin: 12/05/20 08:09 Dose: 40 mg Documented by: Raspberry (Raspberry Syrup 5 Ml Udp) 5 ml PO Q6 [facility] Stop: 12/15/20 05:59 Last Admin: 12/05/20 12:21 Dose: 5 ml Documented by: Rizatriptan Benzoate (Rizatriptan Benzoate 10 Mg Tab) 10 mg PO TID PRN PRN Reason: Migraine Headache Stop: 12/31/20 04:36 Sucralfate (Sucralfate 1 Gm/10 Ml Udc) 1 gm PO QID [facility] Stop: 12/31/20 08:59 Last Admin: 12/05/20 14:11 Dose: 1 gm Documented by: Topiramate (Topiramate 50 Mg Tab) 50 mg PO [facility] Stop: 12/31/20 20:59 Last Admin: 12/04/20 20:34 Dose: 50 mg Documented by: Trazodone HCl (Trazodone Hcl 50 Mg Tab) 50 mg PO [facility] Stop: 12/31/20 20:59 Last Admin: 12/04/20 20:33 Dose: 50 mg Documented by: Vancomycin HCl (Vancomycin Hcl 250 Mg/5 Ml Soln) 250 mg PO Q6 [facility] Stop: 12/11/20 05:59 Last Admin: 12/05/20 12:21 Dose: 250 mg Documented by: (1) Sepsis Acute renal failure type: unspecified Sepsis acute organ dysfunction status: with acute organ dysfunction Sepsis type: sepsis due to unspecified organism Severe sepsis acute organ dysfunction type: acute renal failure Severe sepsis shock status: with septic shock Qualified Code(s): A41.9 - Sepsis, unspecified organism; R65.21 - Severe sepsis with septic shock; N17.9 - Acute kidney failure, unspecified
[2020-12-05] MEDS: CIPROFLOXACIN 500 MG TAB PO SCH (20:11)
[2020-12-05] MEDS: TOPIRAMATE 50 MG TAB PO SCH (20:11)
[2020-12-05] MEDS: metroNIDAZOLE 500 MG TAB PO SCH (20:11)
[2020-12-05] MEDS: LORATADINE 10 MG TAB PO SCH (20:11)
[2020-12-05] MEDS: traZODone HCL 50 MG TAB PO SCH (20:19)
[2020-12-06] MEDS: NSS + 20MEQ KCL 20 MEQ/1,000 ML BAG IV SCH ×3 (01:59→20:16)
[2020-12-06] MEDS: LEVOTHYROXINE SODIUM 100 MCG TABLET PO SCH (06:02)
[2020-12-06] MEDS: VANCOMYCIN HCL 250 MG/5 ML SOLN PO SCH ×5 (06:02→23:49)
[2020-12-06] MEDS: RASPBERRY SYRUP 5 ML UDP PO SCH ×5 (06:02→23:49)
[2020-12-06] MEDS: ONDANSETRON INJ 2 MG/ML 2 ML VIAL IV PRN ×2 (09:06→20:13)
[2020-12-06] MEDS: CIPROFLOXACIN 500 MG TAB PO SCH ×2 (09:09→20:14)
[2020-12-06] MEDS: estradioL 1 MG TAB PO SCH ×3 (09:09→20:15)
[2020-12-06] MEDS: ESCITALOPRAM OXALATE 20 MG TAB PO SCH (09:10)
[2020-12-06] MEDS: PANTOprazole 40 MG TAB PO SCH (09:10)
[2020-12-06] MEDS: GABAPENTIN 600 MG TAB PO SCH ×3 (09:10→20:16)
[2020-12-06] MEDS: SUCRALFATE 1 GM/10 ML UDC PO SCH ×4 (09:11→20:14)
[2020-12-06] MEDS: ENOXAPARIN INJ 30 MG/0.3 ML SYR SQ SCH (09:11)
[2020-12-06] MEDS: metroNIDAZOLE 500 MG TAB PO SCH ×3 (09:11→20:15)
[2020-12-06] MEDS: oxyCODONE HCL IR 5 MG TAB (IMMEDIATE RELEASE) PO PRN ×2 (14:37→20:13)
--- NOTE | 2020-12-06 17:30 | Hospitalist Progress Note ---
Date of Service December 06, 2020 Assessment & Plan (1) Sepsis: Plan: Came in with hypertensive, temperature on the lower side, increasing white count and borderline high lactate of 2.4. Met sepsis criteria on admission and following checking blood culture she received intravenous fluid and started with intravenous antibiotic with Zosyn and vancomycin. Likely has acute cholangitis Blood cultures have been negative Vancomycin was stopped and intravenous Zosyn continued We will continue antibiotic for a total of 14 days No more fever and/or chills We will change antibiotic to oral Cipro and Flagyl Check EKG tomorrow to make sure there is no worsening QT prolongation EKG is not showing any QT prolongation We will continue oral Cipro and Flagyl Electrolytes abnormality We will replace and monitor Electrolytes have been stable-we will monitor Elevated transaminases Due to cholangiocarcinoma and biliary obstruction We will monitor LFTs-has been improving History of C. difficile colitis We will continue oral vancomycin Tense ascites Secondary to cholangiocarcinoma Has had paracentesis about 2 weeks ago We will get another paracentesis today for ongoing discomfort Has had 5 L paracentesis yesterday She has been feeling a little better today Complains to have abdominal discomfort and afraid that the fluid is coming back Generalized weakness Multifactorial-worsening cholangiocarcinoma, acute cholangitis and electrolyte imbalance We will get PT and OT evaluation before discharge Wants to go home with home health nurse and possible home PT (2) Acute hypotension: Plan: Noted to be borderline hypotensive on admission Blood pressure goes down as low as systolic over 70s Has been receiving intravenous fluids with improvement Blood pressure remains on the lower side (3) Cholangitis: Plan: Likely cause of sepsis is acute cholangitis in the setting of cholangiocarcinoma. Noted to have leukocytosis, elevated bilirubin, abdominal pain, hypotension and subjective fever Status post ERCP and placement of stents as mentioned -2 visibly occluded stents from the biliary tree wire seen in the major papilla. -A single segmental biliary stricture was found in the common hepatic duct. The stricture was malignant appearing. -2 his stents were removed from the biliary tree -The biliary tree was swept and debris's and possible are found -1 covered metal stent was placed into the common bile duct. -2 biliary stents were placed into the common bile duct -Indomethacin was given to decrease risk of post ERCP pancreatitis Has been on intravenous Zosyn and vancomycin. Vancomycin was stopped later on Await blood culture-negative Continue IV Zosyn for a total of 14 days We will change antibiotic to oral Cipro and Flagyl to continue the course (4) Jaundice: Plan: Secondary to biliary obstruction due to cholangiocarcinoma Status post stents placement in the jaundice has been improving (5) Anxiety and depression: Plan: We will continue supportive medication (6) Hypothyroidism: Plan: Continue supplement (7) Cholangiocarcinoma: Plan: As above Prognosis remains poor Palliative care consulted for goals of care Plan: DVT prophylaxisSCDs INR is elevated to 1.6 INR is 1.4 today 12/03/2020 Will start subcu Lovenox CODE STATUS Full Admission and Anticipated Discharge Date Admission Date: December 01, 2020 Subjective 12/02/2020 The patient was seen and examined in ICU She complains of extreme weakness and fatigue Complains today of abdominal distention and discomfort with some pain No fever and/or chills 12/03/2020 The patient was seen and examined in ICU She remains extremely weak and lethargic Complains of pain in the abdomen the right upper quadrant No fever and no chills 12/04/2020 The patient was seen and examined in ICU She remains very lethargic and still complains of pain in the right upper quadrant Denies any fever and/or chills, any nausea and or vomiting December 05, 2020 The patient was seen and examined in medical floor She remains stable and little better today Continues to have abdominal discomfort with anorexia No fever and/or chills 12/06/2020 The patient was seen and examined in medical floor She remains weak and lethargic and complains some abdominal discomfort She has a problem with voiding but resolved now We will ask for palliative care consult for further goals of care Review of Systems Review of Systems: All systems reviewed and are unremarkable except as noted below Constitutional: + fatigue, + weakness and + anorexia Gastrointestinal: + abdominal pain; no bloating, no nausea and no vomiting Physical Exam Physical Exam: Lying in bed with distress secondary to abdominal discomfort and pain Constitutional: well developed and well nourished; not ill appearing Eyes: PERRL, conjunctivae normal, anicteric sclerae ENMT: external ear and nose normal, oropharynx normal Neck: trachea midline, no thyromegaly Respiratory: no respiratory distress and no cough Auscultation: lungs clear to auscultation bilaterally Cardiovascular: Rate/Rhythm: regular rate and regular rhythm; not tachycardic Heart Sounds: normal S1 and normal S2; no murmur Extremities: + edema (1-2+ edema bilaterally) Gastrointestinal (Abdomen): Inspection/Auscultation: + abdomen distended; + abnormal bowel sounds (Decreased) Percussion/Palpation: + abdomen tender, abdomen soft and + ascites; no guarding Musculoskeletal: No acute arthritis in any joint Neurologic: Alert, awake and oriented. Extremely weak and lethargic Results & Data Results & Data ([facility]) Vital Signs (Past 12 Hours) Vital Signs Temp Pulse Resp BP Pulse Ox 12/06/20 14:46 36.5 C 78 16 136/87 99 12/06/20 07:43 36.7 C 89 16 132/81 97 Medications Administered Current Inpatient Medications Alprazolam (Alprazolam 0.5 Mg Tablet) 1 mg PO BID PRN PRN Reason: Anxiety Stop: 12/31/20 04:36 Benzonatate (Benzonatate 100 Mg Capsule) 100 mg PO BID PRN PRN Reason: Cough Stop: 12/31/20 04:36 Last Admin: 12/03/20 05:46 Dose: 100 mg Documented by: Butalbital/Aspirin/Caffeine (Butalbital/Aspirin/Caffeine 1 Tab Tab) 1 tab PO Q4H PRN PRN Reason: Headache Stop: 12/31/20 04:36 Last Admin: 12/03/20 06:10 Dose: 1 tab Documented by: Ciprofloxacin (Ciprofloxacin 500 Mg Tab) 500 mg PO BID [facility]NIE Stop: 12/15/20 23:59 Last Admin: 12/06/20 09:09 Dose: 500 mg Documented by: Nystatin 30 ml/ Dexamethasone 3.75 mg/ Diphenhydramine HCl 300 mg/ Sucrose 45 ml/Microcrystalline Cellulose 45 ml/ BARCODE IDENTIFIER 1 ea 0 ml PO Q4H PRN PRN Reason: Dyspepsia Stop: 01/02/21 17:29 Last Admin: 12/06/20 09:08 Dose: 5 ml Documented by: Dextromethorphan Polymer Complex (Dextromethorphan Polymr Complx 60 Mg/10 Ml Udp) 60 mg PO Q12H PRN PRN Reason: Cough Stop: 01/02/21 17:29 Last Admin: 12/04/20 14:07 Dose: 60 mg Documented by: Enoxaparin Sodium (Enoxaparin Inj 30 Mg/0.3 Ml Syr) 30 mg SQ QAM [facility] Stop: 01/03/21 14:29 Last Admin: 12/06/20 09:11 Dose: 30 mg Documented by: Escitalopram Oxalate (Escitalopram Oxalate 20 Mg Tab) 20 mg PO QAM [facility] Stop: 12/31/20 08:59 Last Admin: 12/06/20 09:10 Dose: 20 mg Documented by: Estradiol (Estradiol 1 Mg Tab) 1 mg PO TID [facility] Stop: 12/31/20 08:59 Last Admin: 12/06/20 14:37 Dose: 1 mg Documented by: Gabapentin (Gabapentin 600 Mg Tab) 600 mg PO TID [facility] Stop: 12/31/20 08:59 Last Admin: 12/06/20 14:38 Dose: 600 mg Documented by: Potassium Chloride/Sodium Chloride (Normal Saline W/20 Meq Kcl) 20 meq in 1,000 mls @ 100 mls/hr IV .Q10H [facility] Stop: 01/01/21 09:44 Last Admin: 12/06/20 11:14 Dose: 100 mls/hr Documented by: Levothyroxine Sodium (Levothyroxine Sodium 100 Mcg Tablet) 100 mcg PO DAILYBB [facility] Stop: 12/31/20 06:29 Last Admin: 12/06/20 06:02 Dose: 100 mcg Documented by: Loratadine (Loratadine 10 Mg Tab) 10 mg PO HS [facility] Stop: 12/31/20 20:59 Last Admin: 12/05/20 20:11 Dose: 10 mg Documented by: Metronidazole (Metronidazole 500 Mg Tab) 500 mg PO TID [facility] Stop: 12/15/20 23:59 Last Admin: 12/06/20 14:38 Dose: 500 mg Documented by: Nitroglycerin (Nitroglycerin Sl 0.4 Mg/Tab Tab) 0.4 mg SL UD PRN PRN Reason: Chest Pain Stop: 12/31/20 04:36 Ondansetron HCl (Ondansetron Inj 2 Mg/Ml 2 Ml Vial) 4 mg IV Q6H PRN PRN Reason: Nausea Stop: 12/31/20 04:36 Last Admin: 12/06/20 09:06 Dose: 4 mg Documented by: Ondansetron HCl (Ondansetron 4 Mg Od Tab) 4 mg PO Q8H PRN PRN Reason: Nausea And Vomiting Stop: 12/31/20 04:47 Oxycodone HCl (Oxycodone Hcl Ir 5 Mg Tab (Immediate Release)) 5 mg PO Q4H PRN PRN Reason: Pain Stop: 12/15/20 04:36 Last Admin: 12/06/20 14:37 Dose: 5 mg Documented by: Pantoprazole Sodium (Pantoprazole 40 Mg Tab) 40 mg PO QAM [facility] Stop: 12/31/20 08:59 Last Admin: 12/06/20 09:10 Dose: 40 mg Documented by: Raspberry (Raspberry Syrup 5 Ml Udp) 5 ml PO Q6 [facility] Stop: 12/15/20 05:59 Last Admin: 12/06/20 11:16 Dose: Not Given Documented by: Rizatriptan Benzoate (Rizatriptan Benzoate 10 Mg Tab) 10 mg PO TID PRN PRN Reason: Migraine Headache Stop: 12/31/20 04:36 Sucralfate (Sucralfate 1 Gm/10 Ml Udc) 1 gm PO QID [facility] Stop: 12/31/20 08:59 Last Admin: 12/06/20 14:38 Dose: 1 gm Documented by: Topiramate (Topiramate 50 Mg Tab) 50 mg PO HS [facility] Stop: 12/31/20 20:59 Last Admin: 12/05/20 20:11 Dose: 50 mg Documented by: Trazodone HCl (Trazodone Hcl 50 Mg Tab) 50 mg PO HS [facility] Stop: 12/31/20 20:59 Last Admin: 12/05/20 20:19 Dose: 50 mg Documented by: Vancomycin HCl (Vancomycin Hcl 250 Mg/5 Ml Soln) 250 mg PO Q6 [facility] Stop: 12/11/20 05:59 Last Admin: 12/06/20 11:17 Dose: Not Given Documented by: (1) Sepsis Acute renal failure type: unspecified Sepsis acute organ dysfunction status: with acute organ dysfunction Sepsis type: sepsis due to unspecified organism Severe sepsis acute organ dysfunction type: acute renal failure Severe sepsis shock status: with septic shock Qualified Code(s): A41.9 - Sepsis, unspecified organism; R65.21 - Severe sepsis with septic shock; N17.9 - Acute kidney failure, unspecified
[2020-12-06] MEDS: traZODone HCL 50 MG TAB PO SCH (20:13)
[2020-12-06] MEDS: TOPIRAMATE 50 MG TAB PO SCH (20:15)
[2020-12-06] MEDS: LORATADINE 10 MG TAB PO SCH (20:16)
[2020-12-07] MEDS: RASPBERRY SYRUP 5 ML UDP PO SCH ×2 (05:26→11:00)
[2020-12-07] MEDS: VANCOMYCIN HCL 250 MG/5 ML SOLN PO SCH ×2 (05:26→11:00)
[2020-12-07] MEDS: LEVOTHYROXINE SODIUM 100 MCG TABLET PO SCH (05:26)
[2020-12-07] MEDS: NSS + 20MEQ KCL 20 MEQ/1,000 ML BAG IV SCH (05:28)
[2020-12-07] MEDS: ONDANSETRON INJ 2 MG/ML 2 ML VIAL IV PRN (07:42)
[2020-12-07 07:50] LABS: Basophils # (auto) 0.01 K/uL (0-0.2); Basophils % (auto) 0.1 %; Eosinophils # (auto) 0.05 K/uL (0-0.5); Eosinophils % (auto) 0.6 %; Hematocrit (blood only) 33.8 % (37-47); Hemoglobin 10.7 g/dL (12.0-16.0); Immature Granulocytes % (auto) 1.3 %; Lymphocytes # (auto) 0.53 K/uL (1.2-3.4); Lymphocytes % (auto) 6.9 %; Mean Corpuscular Hemoglobin 30.6 pg (25-34); Mean Corpuscular Hgb Conc 31.7 g/dL (32-36); Mean Corpuscular Volume 96.6 fL (80-100); Mean Platelet Volume 9.4 fL (7.4-10.4); Monocytes # (auto) 0.63 K/uL (0.11-0.59); Monocytes % (auto) 8.2 %; Neutrophils # (auto) 6.39 K/uL (1.4-6.5); Neutrophils % (auto) 82.9 %; Platelet Count 222 K/uL (130-400); RDW Coefficient of Variation 15.1 % (11.5-14.5); RDW Standard Deviation 52.9 fL (36.4-46.3); White Blood Count 7.71 K/uL (4.8-10.8)
[2020-12-07 07:59] LABS: INR 1.2 (0.9-1.1); Prothrombin Time 11.7 Seconds (9.0-12.0)
[2020-12-07] MEDS: CIPROFLOXACIN 500 MG TAB PO SCH (08:22)
[2020-12-07] MEDS: ESCITALOPRAM OXALATE 20 MG TAB PO SCH (08:22)
[2020-12-07] MEDS: ENOXAPARIN INJ 30 MG/0.3 ML SYR SQ SCH (08:22)
[2020-12-07 08:23] LABS: Est GFR (African American) 138.6 ml/min; Est GFR (Non-African American) 119.6 ml/min; Potassium 4.3 mmol/L (3.5-5.1)
[2020-12-07] MEDS: SUCRALFATE 1 GM/10 ML UDC PO SCH ×2 (08:23→13:43)
[2020-12-07] MEDS: PANTOprazole 40 MG TAB PO SCH (08:23)
[2020-12-07] MEDS: GABAPENTIN 600 MG TAB PO SCH ×2 (08:23→13:43)
[2020-12-07] MEDS: estradioL 1 MG TAB PO SCH ×2 (08:23→13:43)
[2020-12-07] MEDS: metroNIDAZOLE 500 MG TAB PO SCH ×2 (08:23→13:43)
[2020-12-07 08:24] LABS: Albumin Level 1.5 gm/dl (3.4-5.0); BUN Creatinine Ratio 12.4 (10-20); Calcium 8.1 mg/dl (8.5-10.1); Creatinine Clr Calc Pharmacy 190.7 ml/min; Magnesium 2.2 mg/dl (1.8-2.4)
[2020-12-07 08:27] LABS: Albumin Globulin Ratio 0.3 (0.9-2); Bilirubin,Total 0.9 mg/dl (0.2-1); Globulin 4.7 gm/dl (2.5-4.0); Phosphorus 1.9 mg/dl (2.5-4.9); Total Protein 6.2 gm/dl (6.4-8.2)
--- NOTE | 2020-12-07 09:00 | Electrocardiogram Report ---
Test Reason : Blood Pressure : / mmHG Vent. Rate : 079 BPM Atrial Rate : 079 BPM P-R Int : 170 ms QRS Dur : 094 ms QT Int : 410 ms P-R-T Axes : 036 -01 035 degrees QTc Int : 470 ms Poor data quality, interpretation may be adversely affected Normal sinus rhythm Low voltage QRS Cannot rule out Anterior infarct (cited on or before 01-DEC-2020) Abnormal ECG When compared with ECG of 01-DEC-2020 01:46, No significant change Confirmed by Bentley Kaplan ([id number] on 12/07/2020 9:00:23 AM Referred By: REFERRED SELF Confirmed By:Bentley Kaplan
--- NOTE | 2020-12-07 11:11 | Palliative Care Consultation ---
Date of Consultation December 07, 2020 Assessment & Plan (1) Palliative care encounter: This is an unfortunate 50 year old female who presented to the [facility] with increased confusion and decreased PO intake. The patient has an unfortunate diagnosis of cholangiocarcinoma s/p chemotherapy that was diagnosed in September 2020. Additional PMH includes: Hashimotos thyroiditis, DM2, HLD, HTN, B12, GERD, Depression, MERLIN, Anxiety and Depression. Two biliary stents have been placed s/p ERCP this admission. She sees Dr. Barraza for her oncology management and has been to [facility] for a second opinion. Palliative Medicine was consulted to discuss goals of care and symptom management. I met with Ms. Quintero in room 308. She was sitting upright in her bed, nauseated, but able to hold a meaningful conversation. She explained that she has just been feeling terrible, but just wants to go home. I did discuss code status with her and she was clear that in the event of cardiac and/or respiratory arrest, she would not wish to be resuscitated. She stated that it would be so much harder for her family to make a decision to withdraw care than to keep her comfortable in the first place. DNR/DNI now reflected in the computer. She expressed that she lives with her and everything is accessible from the first floor. She is slated to return home with home health. We discussed hospice and how i can be of support, especially with symptom management. She was grateful for the information and seemed receptive to transition from home health to hospice if her symptoms were not well management and further treatment would not be beneficial. She expressed feeling accepting that she has been unable to receive further treatment due to weakness, infection, etc. She is receptive to outpatient palliative medicine following her. Thanks for involving Palliative Medicine with this individual. (2) Nausea: Patient with persistent and intractable nausea, without vomiting. She expressed that she does not find anything appealing, but is able to tolerate water and soda. At home she has taken Zofran ODT. While in the hospital, she does have Zofran 5 mg IV Q6 PRN ordered. Will order routine Zofran 4 mg ODT Q4. (3) Peripheral neuropathy: Takes Neurontin 600 mg PO TID (4) Cholangiocarcinoma: Home with Home Health, possible Hospice transition Nausea - Zofran ODT ordered Code status changed to DNR/DNI Likely D/C home today. CM to arrange OPT PC follow up. History of Present Illness Reason for Consultation: Goals of care Requesting Physician: Dr. Diehl Attending Physician: Arik Diehl MD History of Present Illness This is an unfortunate 50 year old female who presented to the [facility] with increased confusion and decreased PO intake. The patient has an unfortunate diagnosis of cholangiocarcinoma s/p chemotherapy that was diagnosed in September 2020. Additional PMH includes: Hashimotos thyroiditis, DM2, HLD, HTN, B12, GERD, Depression, MERLIN, Anxiety and Depression. Two biliary stents have been placed s/p ERCP this admission. She sees Dr. Barraza for her oncology management and has been to [facility] for a second opinion. Palliative Medicine was consulted to discuss goals of care and symptom management. Please see A/P for further details. Thanks for involving Palliative Medicine with this individual. Allergies Allergy/AdvReac Type Severity Reaction Status Date / Time pineapple Allergy Severe Anaphylaxis Verified 12/01/20 01:53 Home Medications Medication Instructions Recorded Confirmed Type alprazolam 1 mg tablet (Xanax) 1 mg PO BID PRN 09/13/20 12/01/20 History benzonatate 100 mg capsule 100 mg PO BID PRN 09/13/20 12/01/20 History (Lupe Lyman) [id number] 50 1 cap PO Q4H PRN 09/13/20 12/01/20 History mg-325 mg-40 mg capsule docusate sodium 100 mg capsule 100 mg PO BID 09/13/20 12/01/20 History escitalopram oxalate 20 mg tablet 20 mg PO QAM 09/13/20 12/01/20 History (Lexapro) estradiol 1 mg tablet (Estrace) 1 mg PO TID 09/13/20 12/01/20 History gabapentin 600 mg tablet 600 mg PO TID 09/13/20 12/01/20 History levothyroxine 100 mcg tablet 100 mcg PO QAM 09/13/20 12/01/20 History loratadine 10 mg tablet 10 mg PO HS 09/13/20 12/01/20 History losartan 50 mg tablet (Cozaar) 50 mg PO QAM 09/13/20 12/01/20 History omeprazole 40 mg capsule,delayed 40 mg PO QAM 09/13/20 12/01/20 History release ondansetron HCl 4 mg tablet 4 mg PO Q8H PRN 09/13/20 12/01/20 History (Zofran) promethazine 25 mg tablet 25 mg PO HS PRN 09/13/20 12/01/20 History rizatriptan 10 mg tablet 10 mg PO TID PRN 09/13/20 12/01/20 History sennosides 8.6 mg capsule (senna) 8.6 mg PO QAM 09/13/20 12/01/20 History sucralfate 100 mg/mL oral 10 ml PO QID 09/13/20 12/01/20 History suspension (Carafate) topiramate 50 mg tablet (Topamax) 50 mg PO HS 09/13/20 12/01/20 History trazodone 50 mg tablet 50 mg PO HS 09/13/20 12/01/20 History oxycodone 5 mg tablet 5 mg PO Q4H PRN 11/14/20 12/01/20 History albumin, human 25 % 25 % See Rx Instructions .ROUTE .COMPLEX 12/01/20 12/01/20 History intravenous solution polyethylene glycol 3350 17 gram 17 g PO DAILY 12/01/20 12/01/20 History oral powder packet (Miralax) vancomycin 125 mg capsule 125 mg PO QID 12/01/20 12/01/20 History ciprofloxacin HCl 500 mg tablet 500 mg PO BID 8 Days #16 tab 12/07/20 Rx metronidazole 500 mg tablet 500 mg PO TID 8 Days #24 tab 12/07/20 Rx ondansetron 4 mg disintegrating 4 mg PO Q4H 5 Days #30 tab 12/07/20 Rx tablet Patient History Medical History (Updated 12/07/20 @ 13:08 by TERE Theodore) Anxiety and depression Arthritis Cholangiocarcinoma 09/14/2020, s/p 2 chemo treatments Constipation Elevated LFTs GERD (gastroesophageal reflux disease) History of abdominal paracentesis 2L removed ([place]), plan for upcoming repeat paracentesis mid 11/2020 Hypertension Hypothyroidism Migraine Nausea Palliative care encounter Peripheral neuropathy Peripheral neuropathy Spinal stenosis Stomach ulcer hx Surgical History Family history of reaction to anesthesia Son > combative Father > slow to wake H/O total hysterectomy History of bilateral tubal ligation History of cholecystectomy History of ERCP EGD, EUS, ERCP (09/15/20): Grade view 1, MAC#3, ETT 7 at [facility] History of esophagogastroduodenoscopy (EGD) History of tonsillectomy History of tooth extraction Family History Father Family history of diabetes mellitus Other Family history of factor V deficiency Social History Smoking Status: Never smoker Second Hand Exposure: No; Hx Alcohol Use: No Hx Substance Use: No Preferred Language: Cymro Communication Ability: Effective Environmental Lawyer Required: No Beliefs That Will Affect Care: None Current Living Situation: Spouse and Family Current Living Situation Comment: and son Feels Safe at Home: Yes Safety Concerns: Feels Safe At This Time Assistive Devices: Glasses and Walker Review of Systems Review of Systems: [place] System Assessment Scale: Pain: 0/3 Nausea: 3/3 Lack of appetite: 1/3 SOB: 0/3 Palliative Performance Scale: 40% Physical Exam Constitutional: + ill appearing, + frail appearing, cooperative and + in distress Respiratory: normal respiratory effort Auscultation: + diminished lung sounds Cardiovascular: Rate/Rhythm: regular rate and regular rhythm Heart Sounds: normal S1 and normal S2 Extremities: normal capillary refill; no edema Gastrointestinal (Abdomen): Inspection/Auscultation: abdomen normal to inspection Percussion/Palpation: abdomen soft Skin: + pallor Psychiatric: Orientation: alert and oriented x 3 Insight: good insight Judgement: good judgement Results & Data ([facility]) Vital Signs (Past 12 Hours) Vital Signs Temp Pulse Resp BP Pulse Ox 12/07/20 07:33 36.9 C 76 16 134/84 97 12/06/20 23:46 36.7 C 75 16 124/79 97 PG Care Time/CCT Total # of Minutes Spent Total Time Spent with Patient: Total time spent is greater than 50% in coordination of care (as documented) at patient's floor/unit and/or counseling patient: 70 minutes with > 50% of that time spent assessing the patient, discussing goals of care including code status with patient, addressing symptom management needs and collaborating with IDT Coding Level of Care Code 19664 Initial Inpt Care Lvl 3 Diagnoses Palliative care encounter Z51.5 Nausea R11.0 Peripheral neuropathy G62.9 Cholangiocarcinoma C22.1 Time Spent (min) 70
[2020-12-07] MEDS: ONDANSETRON 4 MG OD TAB PO SCH ×2 (11:28→14:58)
--- NOTE | 2020-12-07 12:51 | Hospitalist Progress Note ---
Date of Service December 07, 2020 Assessment & Plan (1) Sepsis: Plan: Came in with hypertensive, temperature on the lower side, increasing white count and borderline high lactate of 2.4. Met sepsis criteria on admission and following checking blood culture she received intravenous fluid and started with intravenous antibiotic with Zosyn and vancomycin. Likely has acute cholangitis Blood cultures have been negative Vancomycin was stopped and intravenous Zosyn continued We will continue antibiotic for a total of 14 days No more fever and/or chills We will change antibiotic to oral Cipro and Flagyl Check EKG tomorrow to make sure there is no worsening QT prolongation EKG is not showing any QT prolongation We will continue oral Cipro and Flagyl Remains stable to be discharged Palliative care encounter Appreciate palliative encounter and recommendation The patient is made DNR She will go with home health and down the line will consider hospice care Electrolytes abnormality We will replace and monitor Electrolytes have been stable-we will monitor Electrolytes are unremarkable Elevated transaminases Due to cholangiocarcinoma and biliary obstruction We will monitor LFTs-has been improving History of C. difficile colitis We will continue oral vancomycin Tense ascites Secondary to cholangiocarcinoma Has had paracentesis about 2 weeks ago We will get another paracentesis today for ongoing discomfort Has had 5 L paracentesis yesterday She has been feeling a little better today Complains to have abdominal discomfort and afraid that the fluid is coming back Following paracentesis the abdomen remains distended but soft and is not as tense as before She may need palliative paracentesis down the line Generalized weakness Multifactorial-worsening cholangiocarcinoma, acute cholangitis and electrolyte imbalance We will get PT and OT evaluation before discharge Wants to go home with home health nurse and possible home PT (2) Acute hypotension: Plan: Noted to be borderline hypotensive on admission Blood pressure goes down as low as systolic over 70s Has been receiving intravenous fluids with improvement Blood pressure remains on the lower side (3) Cholangitis: Plan: Likely cause of sepsis is acute cholangitis in the setting of cholangiocarcinoma. Noted to have leukocytosis, elevated bilirubin, abdominal pain, hypotension and subjective fever Status post ERCP and placement of stents as mentioned -2 visibly occluded stents from the biliary tree wire seen in the major papilla. -A single segmental biliary stricture was found in the common hepatic duct. The stricture was malignant appearing. -2 his stents were removed from the biliary tree -The biliary tree was swept and debris's and possible are found -1 covered metal stent was placed into the common bile duct. -2 biliary stents were placed into the common bile duct -Indomethacin was given to decrease risk of post ERCP pancreatitis Has been on intravenous Zosyn and vancomycin. Vancomycin was stopped later on Await blood culture-negative Continue IV Zosyn for a total of 14 days We will change antibiotic to oral Cipro and Flagyl to continue the course (4) Jaundice: Plan: Secondary to biliary obstruction due to cholangiocarcinoma Status post stents placement in the jaundice has been improving (5) Anxiety and depression: Plan: We will continue supportive medication (6) Hypothyroidism: Plan: Continue supplement (7) Cholangiocarcinoma: Plan: As above Prognosis remains poor Palliative care consulted for goals of care Plan: DVT prophylaxisSCDs INR is elevated to 1.6 INR is 1.4 today 12/03/2020 Will start subcu Lovenox CODE STATUS Made DNR Admission and Anticipated Discharge Date Admission Date: December 01, 2020 Subjective 12/02/2020 The patient was seen and examined in ICU She complains of extreme weakness and fatigue Complains today of abdominal distention and discomfort with some pain No fever and/or chills 12/03/2020 The patient was seen and examined in ICU She remains extremely weak and lethargic Complains of pain in the abdomen the right upper quadrant No fever and no chills 12/04/2020 The patient was seen and examined in ICU She remains very lethargic and still complains of pain in the right upper quadrant Denies any fever and/or chills, any nausea and or vomiting December 05, 2020 The patient was seen and examined in medical floor She remains stable and little better today Continues to have abdominal discomfort with anorexia No fever and/or chills 12/06/2020 The patient was seen and examined in medical floor She remains weak and lethargic and complains some abdominal discomfort She has a problem with voiding but resolved now We will ask for palliative care consult for further goals of care 12/07/2020 The patient was seen and examined in medical floor She remains generally weak and lethargic but looks better today She was seen by palliative care and she plans to go home this afternoon Review of Systems Review of Systems: All systems reviewed and are unremarkable except as noted below Constitutional: + fatigue, + weakness and + anorexia Gastrointestinal: + abdominal pain; no bloating, no nausea and no vomiting Physical Exam Physical Exam: Lying in bed with distress secondary to abdominal discomfort and pain Constitutional: well developed and well nourished; not ill appearing Eyes: PERRL, conjunctivae normal, anicteric sclerae ENMT: external ear and nose normal, oropharynx normal Neck: trachea midline, no thyromegaly Respiratory: no respiratory distress and no cough Auscultation: lungs clear to auscultation bilaterally Cardiovascular: Rate/Rhythm: regular rate and regular rhythm; not tachycardic Heart Sounds: normal S1 and normal S2; no murmur Extremities: + edema (1-2+ edema bilaterally) Gastrointestinal (Abdomen): Inspection/Auscultation: + abdomen distended; + abnormal bowel sounds (Decreased) Percussion/Palpation: + abdomen tender, abdomen soft and + ascites; no guarding Musculoskeletal: No acute arthritis in any joint Neurologic: Alert, awake and oriented x3. Generally very weak and lethargic Results & Data Results & Data ([facility]) Vital Signs (Past 12 Hours) Vital Signs Temp Pulse Resp BP Pulse Ox 12/07/20 07:33 36.9 C 76 16 134/84 97 Laboratory Results Short CBC 12/07/20 Range/Units 06:59 WBC 7.71 (4.8-10.8) K/uL Hgb 10.7 L (12.0-16.0) g/dL Hct 33.8 L (37-47) % Plt Count 222 (130-400) K/uL BMP 12/07/20 06:59 Sodium 140 Potassium 4.3 Chloride 111 H Carbon Dioxide 21 BUN 5 L Creatinine 0.41 L Glucose 103 H Calcium 8.1 L Liver Function 12/07/20 Range/Units 06:59 Total Bilirubin 0.9 (0.2-1) mg/dl AST 43 H (15-37) U/L ALT 12 (12-78) U/L Alkaline Phosphatase 273 H (45-117) U/L Albumin 1.5 L (3.4-5.0) gm/dl Medications Administered Current Inpatient Medications Alprazolam (Alprazolam 0.5 Mg Tablet) 1 mg PO BID PRN PRN Reason: Anxiety Stop: 12/31/20 04:36 Benzonatate (Benzonatate 100 Mg Capsule) 100 mg PO BID PRN PRN Reason: Cough Stop: 12/31/20 04:36 Last Admin: 12/03/20 05:46 Dose: 100 mg Documented by: Butalbital/Aspirin/Caffeine (Butalbital/Aspirin/Caffeine 1 Tab Tab) 1 tab PO Q4H PRN PRN Reason: Headache Stop: 12/31/20 04:36 Last Admin: 12/03/20 06:10 Dose: 1 tab Documented by: Ciprofloxacin (Ciprofloxacin 500 Mg Tab) 500 mg PO BID [facility] Stop: 12/15/20 23:59 Last Admin: 12/07/20 08:22 Dose: Not Given Documented by: Nystatin 30 ml/ Dexamethasone 3.75 mg/ Diphenhydramine HCl 300 mg/ Sucrose 45 ml/Microcrystalline Cellulose 45 ml/ BARCODE IDENTIFIER 1 ea 0 ml PO Q4H PRN PRN Reason: Dyspepsia Stop: 01/02/21 17:29 Last Admin: 12/06/20 20:13 Dose: 5 ml Documented by: Dextromethorphan Polymer Complex (Dextromethorphan Polymr Complx 60 Mg/10 Ml Udp) 60 mg PO Q12H PRN PRN Reason: Cough Stop: 01/02/21 17:29 Last Admin: 12/04/20 14:07 Dose: 60 mg Documented by: Enoxaparin Sodium (Enoxaparin Inj 30 Mg/0.3 Ml Syr) 30 mg SQ QAM [facility] Stop: 01/03/21 14:29 Last Admin: 12/07/20 08:22 Dose: Not Given Documented by: Escitalopram Oxalate (Escitalopram Oxalate 20 Mg Tab) 20 mg PO QAM [facility] Stop: 12/31/20 08:59 Last Admin: 12/07/20 08:22 Dose: Not Given Documented by: Estradiol (Estradiol 1 Mg Tab) 1 mg PO TID [facility] Stop: 12/31/20 08:59 Last Admin: 12/07/20 08:23 Dose: Not Given Documented by: Gabapentin (Gabapentin 600 Mg Tab) 600 mg PO TID [facility] Stop: 12/31/20 08:59 Last Admin: 12/07/20 08:23 Dose: Not Given Documented by: Potassium Chloride/Sodium Chloride (Normal Saline W/20 Meq Kcl) 20 meq in 1,000 mls @ 100 mls/hr IV .Q10H [facility] Stop: 01/01/21 09:44 Last Admin: 12/07/20 05:28 Dose: 100 mls/hr Documented by: Levothyroxine Sodium (Levothyroxine Sodium 100 Mcg Tablet) 100 mcg PO DAILYBB [facility] Stop: 12/31/20 06:29 Last Admin: 12/07/20 05:26 Dose: 100 mcg Documented by: Loratadine (Loratadine 10 Mg Tab) 10 mg PO HS [facility] Stop: 12/31/20 20:59 Last Admin: 12/06/20 20:16 Dose: 10 mg Documented by: Metronidazole (Metronidazole 500 Mg Tab) 500 mg PO TID [facility] Stop: 12/15/20 23:59 Last Admin: 12/07/20 08:23 Dose: Not Given Documented by: Nitroglycerin (Nitroglycerin Sl 0.4 Mg/Tab Tab) 0.4 mg SL UD PRN PRN Reason: Chest Pain Stop: 12/31/20 04:36 Ondansetron HCl (Ondansetron Inj 2 Mg/Ml 2 Ml Vial) 4 mg IV Q6H PRN PRN Reason: Nausea Stop: 12/31/20 04:36 Last Admin: 12/07/20 07:42 Dose: 4 mg Documented by: Ondansetron HCl (Ondansetron 4 Mg Od Tab) 4 mg PO Q8H PRN PRN Reason: Nausea And Vomiting Stop: 12/31/20 04:47 Ondansetron HCl (Ondansetron 4 Mg Od Tab) 4 mg PO Q4H [facility] Stop: 01/06/21 11:14 Last Admin: 12/07/20 11:28 Dose: 4 mg Documented by: Oxycodone HCl (Oxycodone Hcl Ir 5 Mg Tab (Immediate Release)) 5 mg PO Q4H PRN PRN Reason: Pain Stop: 12/15/20 04:36 Last Admin: 12/06/20 20:13 Dose: 5 mg Documented by: Pantoprazole Sodium (Pantoprazole 40 Mg Tab) 40 mg PO QAM [facility] Stop: 12/31/20 08:59 Last Admin: 12/07/20 08:23 Dose: Not Given Documented by: Raspberry (Raspberry Syrup 5 Ml Udp) 5 ml PO Q6 [facility] Stop: 12/15/20 05:59 Last Admin: 12/07/20 11:00 Dose: Not Given Documented by: Rizatriptan Benzoate (Rizatriptan Benzoate 10 Mg Tab) 10 mg PO TID PRN PRN Reason: Migraine Headache Stop: 12/31/20 04:36 Sucralfate (Sucralfate 1 Gm/10 Ml Udc) 1 gm PO QID [facility] Stop: 12/31/20 08:59 Last Admin: 12/07/20 08:23 Dose: Not Given Documented by: Topiramate (Topiramate 50 Mg Tab) 50 mg PO HS [facility] Stop: 12/31/20 20:59 Last Admin: 12/06/20 20:15 Dose: 50 mg Documented by: Trazodone HCl (Trazodone Hcl 50 Mg Tab) 50 mg PO HS [facility] Stop: 12/31/20 20:59 Last Admin: 12/06/20 20:13 Dose: 50 mg Documented by: Vancomycin HCl (Vancomycin Hcl 250 Mg/5 Ml Soln) 250 mg PO Q6 [facility] Stop: 12/11/20 05:59 Last Admin: 12/07/20 11:00 Dose: Not Given Documented by: (1) Sepsis Acute renal failure type: unspecified Sepsis acute organ dysfunction status: with acute organ dysfunction Sepsis type: sepsis due to unspecified organism Severe sepsis acute organ dysfunction type: acute renal failure Severe sepsis shock status: with septic shock Qualified Code(s): A41.9 - Sepsis, unspecified organism; R65.21 - Severe sepsis with septic shock; N17.9 - Acute kidney failure, unspecified
--- NOTE | 2020-12-08 08:22 | Discharge Summary ---
Date of Service December 08, 2020 Admission HPI Per Admitting Provider DICTATED BY: James Coleman MD DATE OF ADMISSION: 12/01/2020. CHIEF COMPLAINT: Lethargy. 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 The patient was diagnosed with cholangiocarcinoma in September of this year and status post chemo two times.. Chemo is currently on hold because of ongoing infection. History of chemotherapy-induced neutropenia. Lives at her home with and son. Recently started on p.o. vancomycin for C. diff infection. Was brought in by her son because she was getting confused at home today and somewhat lethargic. Not eating much, poor appetite. Complaining of pain all over her torso that is going on for some time. The patient is able to tell her name, tell her date of . Knows that she is in the hospital, but could not tell exactly today's date, though she knows this is November. Has some headache. Denies any blurred visions, no runny nose, no sore throat, no cough, no fevers. Having diarrhea 3 or 4 episodes every day. Normal bladder movements. Has some swelling in the legs, no rash. When she came in, her blood pressure was running in 70s, with the fluids the blood pressure is improving. She is saturating okay in the room air. White count is 17,000. INR is 1.7. Sodium 127, potassium 2.7, creatinine 1.8, her creatinine was 0.5 last couple of weeks ago, total bilirubin is 3.1. Ammonia is less than 10. SARS-CoV-2 PCR is negative. Admission Exam Per Admitting Provider VITAL SIGNS: Temperature 36.6, pulse 92, respiratory rate 26, blood pressure currently is 111/43, when she came in it was 71/54, oxygen 94% on room air. HEENT: Pupils equal, round and reactive to light. Icterus present. Oral mucosa dry. NECK: No JVD. No neck masses. CARDIOVASCULAR: S1 and S2 heard. Regular rate and rhythm. Tachycardia with no murmurs. RESPIRATORY SYSTEM: Normal AP diameter. No accessory muscle use. No wheezing, no crackles. ABDOMEN: Distended. Diffuse abdominal discomfort present. Mild guarding, no rigidity. CENTRAL NERVOUS SYSTEM: Alert and oriented to name, place. Could tell her date of . No facial droop. Speech is somewhat on the low volume and obeys commands and moves extremities. EXTREMITIES: Mild pedal edema present, no erythema seen. Principal Diagnosis Sepsis secondary to acute cholangitis, cholangiocarcinoma status post ERCP and multiple stent placement, ascites, anxiety/depression Discharge Exam Constitutional well developed and well nourished; not ill appearing Eyes PERRL, conjunctivae normal, anicteric sclerae ENMT external ear and nose normal, oropharynx normal Neck trachea midline, no thyromegaly Respiratory no respiratory distress and no cough Auscultation: lungs clear to auscultation bilaterally Cardiovascular Rate/Rhythm: regular rate and regular rhythm; not tachycardic Heart Sounds: normal S1 and normal S2; no murmur Extremities: + edema (1-2+ edema bilaterally) Gastrointestinal (Abdomen) Inspection/Auscultation: + abdomen distended; + abnormal bowel sounds (Decreased) Percussion/Palpation: + abdomen tender, abdomen soft and + ascites; no guarding Discharge Data Allergies Allergy/AdvReac Type Severity Reaction Status Date / Time pineapple Allergy Severe Anaphylaxis Verified 12/01/20 01:53 Consultations 12/01/20 02:36 ED Decision to Admit Stat 12/01/20 08:00 Consult Gastroenterology Routine 12/06/20 11:42 Consult Palliative Care Routine Procedures Performed Operation Date: 12/01/20 09:00 Actual Procedures p Endoscopic Retrograde Cholangiopancreatogram(Not Applicable) - Ghazal Grewal DO Ordered Studies 12/01/20 [place] ERCP biliary ductal Routine 12/01/20 01:03 CT head/brain wo con Urgent 12/01/20 01:32 CT abd pelvis wo con Urgent 12/02/20 14:00 US paracentesis abd w/image Routine Hospital Course (1) Sepsis: Came in with hypertensive, temperature on the lower side, increasing white count and borderline high lactate of 2.4. Met sepsis criteria on admission and following checking blood culture she received intravenous fluid and started with intravenous antibiotic with Zosyn and vancomycin. Likely has acute cholangitis Blood cultures have been negative Vancomycin was stopped and intravenous Zosyn continued We will continue antibiotic for a total of 14 days No more fever and/or chills We will change antibiotic to oral Cipro and Flagyl Check EKG tomorrow to make sure there is no worsening QT prolongation EKG is not showing any QT prolongation We will continue oral Cipro and Flagyl Remains stable to be discharged Palliative care encounter Appreciate palliative encounter and recommendation The patient is made DNR She will go with home health and down the line will consider hospice care Electrolytes abnormality We will replace and monitor Electrolytes have been stable-we will monitor Electrolytes are unremarkable Elevated transaminases Due to cholangiocarcinoma and biliary obstruction We will monitor LFTs-has been improving History of C. difficile colitis We will continue oral vancomycin Tense ascites Secondary to cholangiocarcinoma Has had paracentesis about 2 weeks ago We will get another paracentesis today for ongoing discomfort Has had 5 L paracentesis yesterday She has been feeling a little better today Complains to have abdominal discomfort and afraid that the fluid is coming back Following paracentesis the abdomen remains distended but soft and is not as tense as before She may need palliative paracentesis down the line Generalized weakness Multifactorial-worsening cholangiocarcinoma, acute cholangitis and electrolyte imbalance We will get PT and OT evaluation before discharge Wants to go home with home health nurse and possible home PT (2) Acute hypotension: Noted to be borderline hypotensive on admission Blood pressure goes down as low as systolic over 70s Has been receiving intravenous fluids with improvement Blood pressure remains on the lower side (3) Cholangitis: Likely cause of sepsis is acute cholangitis in the setting of cholangiocarcinoma. Noted to have leukocytosis, elevated bilirubin, abdominal pain, hypotension and subjective fever Status post ERCP and placement of stents as mentioned -2 visibly occluded stents from the biliary tree wire seen in the major papilla. -A single segmental biliary stricture was found in the common hepatic duct. The stricture was malignant appearing. -2 his stents were removed from the biliary tree -The biliary tree was swept and debris's and possible are found -1 covered metal stent was placed into the common bile duct. -2 biliary stents were placed into the common bile duct -Indomethacin was given to decrease risk of post ERCP pancreatitis Has been on intravenous Zosyn and vancomycin. Vancomycin was stopped later on Await blood culture-negative Continue IV Zosyn for a total of 14 days We will change antibiotic to oral Cipro and Flagyl to continue the course (4) Jaundice: Secondary to biliary obstruction due to cholangiocarcinoma Status post stents placement in the jaundice has been improving (5) Anxiety and depression: We will continue supportive medication (6) Hypothyroidism: Continue supplement (7) Cholangiocarcinoma: As above Prognosis remains poor Palliative care consulted for goals of care DVT prophylaxisSCDs INR is elevated to 1.6 INR is 1.4 today 12/03/2020 Will start subcu Lovenox CODE STATUS Made DNR Total Time Total Time Spent Total Time Spent (In Minutes): 35 minutes Discharge Plan Discharge Items Patient Disposition: Home - Home Health Services Reason For Visit: LETHARGIC Discharge Diagnosis: Sepsis secondary to acute cholangitis, cholangiocarcinoma status post ERCP and multiple stent placement, ascites, anxiety/depression Condition on Discharge: Fair Activity: As commented below Activity Comment: Use walker while ambulating Non-emergency contact: Primary Care Provider Call non-emergency contact if: you have any medication questions and your symptoms worsen Follow-up/Referrals: Anabella Metcalf CRNP [Outside Practitioners] - (Date & Time 12/08/2020 10:00 AM Provider TERE Das Department Palliative Medicine, [facility] ) Criss Butler MD [Physician] - 12/15/20 3:00 pm (Palliative Care Physician - Dr. Criss Butler. ) Rhianna Desir DO [Primary Care Provider] - (Date & Time 12/14/2020 12:00 PM Provider Rhianna Desir DO Department Family Practice [facility] ) Gem Garsia, MSN, [employer], [employer] [Outside Practitioners] - (Date & Time 12/09/2020 10:00 AM Provider TERE Villegas Department Hematology/Oncology [facility] ) Diet: Regular and Low Fat Addtl Attending Provider Instructions: Please take precautions to avoid falls Please finish your course of antibiotic Try to keep appointments with the providers Pending Studies at Discharge: No Stand-Alone Forms: [employer] V[employer] Records, Smoking Cessation Medications and DC Order Prescriptions: New metronidazole 500 mg Tablet 500 mg PO TID 8 Days Qty: 24 RF: 0 ciprofloxacin HCl 500 mg Tablet 500 mg PO BID 8 Days Qty: 16 RF: 0 ondansetron 4 mg Tablet,Disintegrating 4 mg PO Q4H 5 Days Qty: 30 RF: 0 Continued gabapentin 600 mg Tablet 600 mg PO TID RF: 0 alprazolam [Xanax] 1 mg Tablet 1 mg PO BID PRN (Reason: Anxiety) RF: 0 rizatriptan 10 mg Tablet 10 mg PO TID PRN (Reason: Migraine Headache) RF: 0 omeprazole 40 mg Capsule,Delayed Release(Dr/Ec) 40 mg PO QAM RF: 0 levothyroxine 100 mcg Tablet 100 mcg PO QAM RF: 0 estradiol [Estrace] 1 mg Tablet 1 mg PO TID RF: 0 benzonatate [Tessalon Perles] 100 mg Capsule 100 mg PO BID PRN (Reason: Cough) RF: 0 promethazine 25 mg Tablet 25 mg PO HS PRN (Reason: Nausea) RF: 0 [id number]-dyyswrc-[id number] 50-325-40 mg Capsule 1 cap PO Q4H PRN (Reason: Headache) RF: 0 docusate sodium 100 mg Capsule 100 mg PO BID RF: 0 loratadine 10 mg Tablet 10 mg PO HS RF: 0 escitalopram oxalate [Lexapro] 20 mg Tablet 20 mg PO QAM RF: 0 senna 8.6 mg Capsule 8.6 mg PO QAM RF: 0 trazodone 50 mg Tablet 50 mg PO HS RF: 0 sucralfate [Carafate] 100 mg/mL Suspension 10 ml PO QID RF: 0 topiramate [Topamax] 50 mg Tablet 50 mg PO HS RF: 0 oxycodone 5 mg Tablet 5 mg PO Q4H PRN (Reason: Pain) RF: 0 polyethylene glycol 3350 [Miralax] 17 gram powder in packet 17 g PO DAILY RF: 0 vancomycin 125 mg Capsule 125 mg PO QID RF: 0 albumin, human 25 % 25 % Parenteral Solution See Rx Instructions .ROUTE .COMPLEX RF: 0 Discontinued losartan [Cozaar] 50 mg Tablet 50 mg PO QAM RF: 0 ondansetron HCl [Zofran] 4 mg Tablet 4 mg PO Q8H PRN (Reason: Nausea) RF: 0 Discharge Orders: Discharge Order (Routine); Ordered 12/07/20 Ordered By: Arik Diehl Admission Data Admit Date/Time: 12/01/20 03:27 Attending Provider: Arik Diehl Admit Provider: James Coleman Primary Care Provider: Rhianna Desir Other Providers: Shazia Escalona ; James Coleman ; Dwayne Can ; Miriam Velasquez ; Drew Brantley ; Dali River ; True Shepard ; Ghazal Grewal ; Trino Ferreira ; Jj Leo ; Stephanie Shetty ; Dorothy Bertrand ; Vicenta Abraham ; Padmini Molina ; Abhishek Leal ; Criss Butler ; [facility] Other Interventions: Discharge Summary Assessment (RN) Last Done: 12/07/20 13:35 Home Health Attestation I certify that this patient is under my care and that I, or a physicians public services assistant working with me, had a face to-face encounter that meets the home health mylo-wj-hvxf encounter requirements with this patient. The encounter with the patient was in whole, or in part, for the following medical condition, which is the primary reason for home health care (list medical condition): Sepsis I certify that, based on my findings, the following services are medically necessary home health services: My clinical findings support the need for the above services because: PT Eval for Safety and Mobility PT Eval for Safety, Gait Training, Assistive Devices PT Gait and Balance Training, Strengthening and Safety Skilled Nsg Assessment Further, I certify that my clinical findings support that this patient is homebound (i.e. absences from home require considerable and taxing effort and are for medical reasons or buddhist services or infrequently or of short duration when for other reasons) because: Supportive Aid - Walker Certification for Home Health Services: Based on the above findings, I certify that this patient is confined to the home and needs intermittent detention care, physical therapy and/or speech therapy or continues to need occupational therapy. The patient is under my care, and I have initiated the establishment of the plan of care. This patient will be followed by a physician who will periodically review the plan of care.
== END 2020-12-07 15:23 | disposition home health service (06) | DRG 871 ==
LOC: ED 00:31 → 2N 03:27 → SUATTDRO 03:27 → 2N 03:56 → 1E 13:44 → 3E 12-05 05:08